=== PATIENT | female | born 1995 | race Caucasian/White ===

== ENCOUNTER → 2017-09-10 10:06 | Outpatient (REF) | payer MEDICAID, SELFPAY ==
[2017-09-10 15:06] LABS: Amphetamine/Metha Screen,Urine Negative ng/mL (<1000); Barbiturates Screen,Urine Negative ng/mL (<200); Benzodiazepines Screen,Urine Negative ng/mL (200); Cannabinoid Screen,Urine Positive ng/mL (<50); Cocaine Screen,Urine Negative ng/g (<300); Methadone Screen,Urine Negative ng/mL (<300); Opiate Screen,Urine Negative ng/mL (<300); Phencyclidine Screen,Urine Negative ng/mL (<25)
== END ==
LOC: LAB 10:06
PROVIDERS: Visit Provider Nurse Practitioner Family
DX: Z79.899 Other long term (current) drug therapy (principal)
CPT/HCPCS: 80305

== ENCOUNTER → 2017-09-20 10:23 | Outpatient (CLI) | payer MEDICAID, SELFPAY ==
[2017-09-20 11:01] LABS: Basophils # 0.1 K/mm3 (0-0.2); Basophils % 0.6 % (0.1-2.0); Eosinophils # 0.2 K/mm3 (0.0-0.4); Eosinophils % 1.4 % (0.1-12.0); Hematocrit 46.4 % (37.0-47.0); Hemoglobin 15.9 g/dL (12.2-16.2); Lymphocytes # 4.9 K/mm3 (0.7-4.5); Lymphocytes % 41.4 K/mm3 (10-50); Mean Corpuscular HGB Conc 34.3 g/dL (31.8-35.4); Mean Corpuscular Hemoglobin 28.9 pg (27.0-31.2); Mean Corpuscular Volume 84.3 fl (81-99); Mean Platelet Volume 7.9 fl (7.4-10.4); Monocytes # 0.7 K/mm3 (0.1-1.0); Monocytes % 5.8 % (1.7-9.3); Neutrophils % 50.9 % (37.0-80.0); Platelet Count 402 K/mm3 (142-424); Red Blood Count 5.51 M/mm3 (4.20-5.40); White Blood Count 11.8 K/mm3 (4.5-13.0)
[2017-09-20 12:45] LABS: Alanine Aminotransferase 26 U/L (12-78); Albumin Level 3.8 gm/dL (3.4-5.0); Alkaline Phosphatase 91 U/L (46-116); Aspartate Amino Transferase 20 U/L (15-37); Bilirubin,Total 0.4 mg/dL (0.2-1.0); Blood Urea Nitrogen 7 mg/dL (7-18); Calcium 9.4 mg/dL (8.5-10.1); Carbon Dioxide 26 mmol/L (21.0-32.0); Chol/HDL Ratio 7.7 (1-3.5); Cholesterol 263 mg/dL (140-200); Creatinine,Serum 0.72 mg/dL (0.55-1.02); Estimated Glomerular Filt Rate 103 ml/min (>60); Free T4 (Free Thyroxine) 1.01 ng/dl (0.78-1.34); GFR (African American) 125 ML/MIN (>60); Globulin 3.9 gm/dl (1.3-3.2); Glucose 83 mg/dL (74-106); HDL Cholesterol 34 mg/dL (29-89); LDL Cholesterol 185 mg/dL (0-130); Thyroid Stimulating Hormone 2.72 uIU/ml (0.516-4.13); Total Protein,Serum 7.7 gm/dL (6.4-8.2); Triglycerides 218 mg/dL (30-200); VLDL Cholesterol 44 mg/dL (0-40)
[2017-09-20 13:00] LABS: Anion Gap 16.5 mEq/L (5-15); Chloride 103 mmol/L (98-107); Potassium 4.5 mmoL/L (3.5-5.1); Sodium 141 mmol/L (136-145)
[2017-09-20 14:49] LABS: Hemoglobin A1C 4.8 % (0.0-7.0)
[2017-09-21 13:52] LABS: Vitamin D 25 Hydroxy 13.7 ng/mL (30.0-100.0)
== END ==
PROVIDERS: Visit Provider Nurse Practitioner Family
DX: R53.83 Other fatigue (principal); Z79.899 Other long term (current) drug therapy
CPT/HCPCS: 36415; 80053; 80061; 82652; 83036; 84439; 84443; 85025

== ENCOUNTER → 2018-01-29 09:32 | Outpatient (REF) | payer MEDICAID, SELFPAY ==
[2018-01-29 14:14] LABS: Amphetamine/Metha Screen,Urine Negative ng/mL (<1000); Barbiturates Screen,Urine Negative ng/mL (<200); Benzodiazepines Screen,Urine Negative ng/mL (<200); Cannabinoid Screen,Urine Positive ng/mL (<50); Cocaine Screen,Urine Negative ng/mL (<300); Methadone Screen,Urine Negative ng/mL (<300); Opiate Screen,Urine Negative ng/mL (<300); Phencyclidine Screen,Urine Negative ng/mL (<25)
== END ==
LOC: LAB 09:32
PROVIDERS: PCP Nurse Practitioner Family; Visit Provider Nurse Practitioner Family
DX: R68.89 Other general symptoms and signs (principal); Z79.899 Other long term (current) drug therapy
CPT/HCPCS: 80305

== ENCOUNTER 2024-04-06 09:31 | Emergency (ER) | payer MEDICAID, SELFPAY ==
--- NOTE | 2024-04-06 09:33 | CT_ITS ---
PROCEDURE INFORMATION: Exam: CT Head Without Contrast Exam date and time: 04/06/2024 11:13 AM Age: 28 years old Clinical indication: Other: Seizures TECHNIQUE: Imaging protocol: Computed tomography of the head without contrast. Radiation optimization: All CT scans at this facility use at least one of these dose optimization techniques: automated exposure control; mA and/or kV adjustment per patient size (includes targeted exams where dose is matched to clinical indication); or iterative reconstruction. COMPARISON: No relevant prior studies available. FINDINGS: Brain: There is no evidence of acute parenchymal hemorrhage, extra-axial collection, or acute infarction. There is no mass effect, midline shift, or downward herniation. Cerebral ventricles: No ventriculomegaly. Paranasal sinuses: Visualized sinuses are unremarkable. No fluid levels. Mastoid air cells: Visualized mastoid air cells are well aerated. Bones: Unremarkable. No acute fracture. Soft tissues: Unremarkable. IMPRESSION: No acute intracranial abnormality.
--- NOTE | 2024-04-06 09:34 | XR_ITS ---
PROCEDURE INFORMATION: Exam: XR Chest Exam date and time: 04/06/2024 11:10 AM Age: 28 years old Clinical indication: Dyspnea TECHNIQUE: Imaging protocol: Radiologic exam of the chest. Views: 1 view. COMPARISON: No relevant prior studies available. FINDINGS: Lungs: Unremarkable. No consolidation. Pleural spaces: Unremarkable. No pleural effusion. No pneumothorax. Heart/Mediastinum: Unremarkable. No cardiomegaly. Bones/joints: Unremarkable. IMPRESSION: No acute findings.
--- NOTE | 2024-04-06 09:37 | HMH.EDGENADL ---
Discharge Plan Disposition Patient Disposition: Home, Self-Care Prescriptions Prescriptions: New levetiracetam [Keppra] 750 mg tablet 750 mg PO BID 30 Days Qty: 60 5RF No Action sertraline 50 mg tablet 25 mg PO DAILY omeprazole 40 mg capsule,delayed release(DR/EC) 40 mg PO DAILY triamcinolone acetonide 0.1 % cream 1 applic topical BID Referrals Follow up/Referrals: Neetu Templeton APRN [Primary Care Provider] - See instructions Activity Restrictions/Add. Instructions Additional Instructions/Restrictions: Given the fact that you have been diagnosed with seizure in the past and were historically on Keppra we have reinitiated your Keppra with your breakthrough seizures today. As discussed transfer to be seen by an inpatient neurologist was offered and you preferred outpatient management. Please call your preferred neurologist to make next available appointment. Please maintain seizure precautions as discussed. Return with any breakthrough or worsening seizures or other conditions or concerns. And stated her antiepileptic medications until further guidance from the neurologist. Clinical Impressions Clinical Impression: Breakthrough seizure Instructions Patient Instructions: DI for Seizure Disorder -- Adult, DI for Seizure (Not Epilepsy/Seizure Disorder), DI for Seizure Disorder -- Child Print Language Print Language: Vietnamese Discharge ED Provider: Duke Hernández General Adult HPI General Chief complaint: Seizure Stated complaint: seizures Time Seen by Provider: 04/06/24 09:33 History of Present Illness HPI narrative: Patient is a 28-year-old female brought in by EMS after multiple seizures. She is postictal and history is limited from her perspective and history is obtained by EMS. Apparently she had a seizure back in 2018 and has not had any seizures since that time is not currently on any antiepileptic medications. Her states that she woke up and was having seizures they called 911. When EMS got to her she was postictal but subsequently had several more seizures generalized tonic-clonic that lasted less than 5 minutes. They gave her 5 mg of IV Versed which aborted the seizure. She remained postictal. She had a nasal trumpet in place prior to arrival however she began to wake up and pulled her nasal trumpet out prior to being seen in the emergency department. No definitive drug alcohol use fevers etc. but history is significantly limited. Related Data Home Medications ?Medication ?Instructions ?Recorded ?Confirmed omeprazole 40 mg capsule,delayed 40 mg PO DAILY 12/03/23 12/03/23 release sertraline 50 mg tablet 25 mg PO DAILY 12/03/23 12/03/23 triamcinolone acetonide 0.1 % 1 applic topical BID 12/03/23 12/03/23 topical cream Previous Rx's ?Medication ?Instructions ?Recorded levetiracetam 750 mg tablet 750 mg PO BID 30 days #60 tabs 04/06/24 (Keppra) Allergies Allergy/AdvReac Type Severity Reaction Status Date / Time No Known Allergies Allergy Verified 04/06/24 10:22 [facility] Disclaimer: The information contained in this section may have been updated after the patient was seen, as this information can be updated by other users. 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 caffeine: Yes Other Medical History Have you received the Flu Vaccine for this season: No Have you received the Pneumonia Vaccine: No ROS Obtained: Yes All systems reviewed & no additional complaints except as documented Physical Exam General General appearance: alert and in no apparent distress Neck Neck exam: Present other (Petechial rash on the face chin and upper chest area but no petechial rash elsewhere) Respiratory Respiratory exam: Present normal lung sounds bilaterally and respiratory distress Cardiovascular Cardiovascular exam: Present tachycardia Neurological Exam Neurological exam: Present other (Patient is sitting up moving all extremities but has a GCS of 14 she is confused but is nonfocal) Medical Decision Making Medical Records Screening: Per USPSTF and CDC recommendations, given the prevalence of disease in our region, it is our hospital?s policy to screen for HIV and viral Hepatitis for all patients aged 18 and over and those with ongoing risk factors. Lucas Inquiry Pt receiving controlled substance: No Vital Signs: 04/06/24 09:38 04/06/24 09:55 04/06/24 10:22 Temperature 98.4 F Temperature Source Oral Pulse Rate 141 H Pulse Rate [Left] 73 Respiratory Rate 20 16 Blood Pressure 166/109 H 134/74 Blood Pressure [Right Arm] 166/109 H Blood Pressure Mean [Right Arm] 128 Blood Pressure Source [Right Arm] Automatic Cuff Blood Pressure Position [Right Arm] Sitting 02 Sat by Pulse Oximetry 97 96 Oxygen Delivery Method Room Air Room Air 04/06/24 11:05 Temperature Temperature Source Pulse Rate 82 Pulse Rate [Left] Respiratory Rate 12 Blood Pressure 124/73 Blood Pressure [Right Arm] Blood Pressure Mean [Right Arm] Blood Pressure Source [Right Arm] Blood Pressure Position [Right Arm] 02 Sat by Pulse Oximetry 99 Oxygen Delivery Method Room Air Lab Data Lab results reviewed: Yes I reviewed the patient's lab results. Lab Results 04/06/24 09:35: WBC 21.9 H*, RBC 5.61 H, Hgb 16.8 H, Hct 50.3 H, MCV 89.7, MCH 29.9, MCHC 33.3, RDW 13.5, Plt Count 436 H, MPV 8.1, Neut % (Auto) 59.4, Lymph % (Auto) 33.6, [place] % (Auto) 5.3, Eos % (Auto) 0.5, Baso % (Auto) 1.3, Neut # (Auto) 13.0 H, Lymph # (Auto) 7.4 H, Fallon # (Auto) 1.2 H, Eos # (Auto) 0.1, Baso # (Auto) 0.3 H, Total Counted 100, Neutrophils % (Manual) 59, Lymphocytes % (Manual) 30, Atypical Lymphs % 2.0, Monocytes % (Manual) 9, Platelet Estimate Normal, RBC Morphology Normal, VBG pH 7.17 L, VBG pCO2 38.1, VBG pO2 32.6, VBG HCO3 13.7 L, VBG Total CO2 14.8 L, VBG O2 Saturation 56.7, VBG Base Excess -14.8 L, VBG Lactic Acid 12.8 H, Sodium 141, Potassium 4.2, Chloride 107, Carbon Dioxide 11 L, Anion Gap 27.2 H, BUN 8, Creatinine 0.90, Estimated GFR 76, Est GFR ( Amer) 92, Glucose 196 H, Calcium 9.3, Total Bilirubin 0.6, AST 63 H, ALT 64, Alkaline Phosphatase 101, Total Protein 8.3 H, Albumin 4.9, Globulin 3.4 H, Albumin/Globulin Ratio 1.4, Serum HCG, Qual Negative, Plasma/Serum Alcohol < 10 04/06/24 09:35 04/06/24 09:35 Orders (Tests/Meds): ED MEDICATIONS Discontinued Medications Generic Name Dose Route Start Last Admin Trade Name Chela PRN Reason Stop Dose Admin Levetiracetam 2,000 mg/ Sodium 120 mls @ 240 mls/hr 04/06/24 09:33 04/06/24 09:48 Chloride IV 04/06/24 09:34 240 mls/hr ONCE ONE Administration Lactated Ringer's 1,000 mls @ 999 mls/hr 04/06/24 09:45 04/06/24 09:48 Lactated Ringer's 1000 Ml Bag IV 04/06/24 10:45 999 mls/hr .Q1H1M BLAKE Administration ORDERS Category Date Time Status CT head/brain wo con Stat Cat Scan 04/06/24 09:33 Completed CXR --portable [XR chest portable] Stat Exams 04/06/24 09:34 Completed CBC w/Auto Diff [Complete Blood Count Auto Diff] Stat Lab 04/06/24 09:35 Completed CMP [Comprehensive Metabolic Panel] Stat Lab 04/06/24 09:35 Completed Ethanol [Ethyl Alcohol] Stat Lab 04/06/24 09:35 Completed HCG Qualitative, Serum Stat Lab 04/06/24 09:35 Completed HIV (1&2) Antibody Rapid Stat Lab 04/06/24 09:34 Received Hep C Ab with Reflex to RNA Stat Lab 04/06/24 09:34 Received UA [Urinalysis and Microscopic] Stat Lab 04/06/24 09:34 Ordered UDS [Drug Screen,Urine] Stat Lab 04/06/24 09:34 Ordered Venous Blood Gas Stat RT 04/06/24 09:35 Completed Medical Decision Narrative: 28-year-old presenting today with multiple seizures after having a seizure 6 years ago. Differential includes epilepsy, drug intoxication or withdrawal, association, trauma, etc. Will get a noncontrasted CT scan, laboratory workup administer loading dose of Keppra and IV fluids and reassess. Also will discuss further with her and family once they arrive. Reassessment 958 patient now is awake alert oriented answering questions GCS of 15 nonfocal neurologic exam. Her boyfriend (she does not have ) and her parents are at the bedside. I was able to speak to her and her boyfriend in private and also spoke to her parents. She and her boyfriend had been smoking marijuana but did not get this from a different distributor and this is not out of the ordinary for her. She has not been drinking alcohol heavily or withdrawing from any medications. She denies any association from a pleasure or traumatic standpoint . I asked her parents further about the seizure she had in 2018 and she was transferred to at that time had no definitive cause identified however she was initiated on antiepileptic medications at that time unclear as to why she stopped. I was able to review her records from [facility] from 2018 where she was seen in the emergency department had a neurology consult ultimately they discharged her with outpatient follow-up and she was initiated on Keppra 750 mg twice daily. I do not see subsequent notes they also recommend an MRI with and without contrast which was not resulted in the system. Reassessment 1154 patient still awake alert oriented GCS of 15 looks very well. Patient's metabolic acidosis on labs with evidence of having had a seizure. No indication for repeating those labs as those have a clinical explanation. She looks very well no evidence of infection or other concerns at this point. She was diagnosed with seizure in the past and was on antiepileptic medication and did very well for a long period of time. I did offer her transfer to be seen by an inpatient neurologist but she and her family and boyfriend all preferred an outpatient management. Therefore I sent descriptive and of her Keppra 750 mg twice daily with multiple refills and they feel comfortable getting outpatient follow-up with her neurologist. They understand that she is at risk of having more seizures they will keep her on seizure precautions and will be close to her until she is further managed by neurologist. Return precautions emphasized she was discharged in stable and improved condition. Additionally labs were reviewed and CT imaging and x-rays were performed which I personally interpreted which shows no acute abnormalities. Critical Care Critical Care Time Critical Care Time: Yes Attestation: On , the high probability of a clinically significant, sudden or life threatening deterioration of the following system(s) required my full and direct attention, intervention and personal management. The time I documented below is in addition to time spent performing reported procedures but includes the following listed in this critical care notation. Total Time Total Critical Care Time: 65
[2024-04-06 09:38] VITALS: BP 166/109; PULSE 141; O2SAT 97
[2024-04-06 09:40] LABS: VBG Base Excess -14.8 mmol/L (-2.4-2.3); VBG HCO3 13.7 mmol/L (23-30); VBG Oxygen Saturation 56.7 % (50-70); VBG PCO2 38.1 mmol/L (35-51); VBG PO2 32.6 mmol/L (28-40); VBG Total CO2 14.8 mmol/L (23-27)
[2024-04-06 09:42] LABS: VBG PH 7.17 mmol/L (7.31-7.41)
[2024-04-06 09:43] LABS: Lactate Venous 12.8 mmol/L (0.4-2.0)
--- NOTE | 2024-04-06 09:43 | ECG_ITS ---
APPROVED REPORT Exam: Resting ECG HR:134 bpm ECG Measurements Heart Rate 134 AXES HI 145 P 59 QRSd 76 QRS 90 QT 301 T 55 QTc 380 Conclusion SINUS TACHYCARDIA WITH OCCASIONAL VENTRICULAR PREMATURE COMPLEXES ABNORMAL RHYTHM ECG UNCONFIRMED REPORT Electronically signed by : Derrek Hernández, 04/06/2024 14:58:06
--- NOTE | 2024-04-06 09:43 | PC.NURSE ---
vbg results pH 7.173 CO2 38.1 p02 32.6 bicarb 13.7 base -14.8 sO2 56.7 lactic 12.82
[2024-04-06] MEDS: LACTATED RINGERS 1000ML 1,000 ML 999 ML IV (09:48)
[2024-04-06] MEDS: levETIRAcetam 2,000 MG in 0.9 % SODIUM CHLORIDE 100 ML 240 MG IV (09:48)
[2024-04-06 09:53] LABS: Albumin Level 4.9 g/dl (3.5-5.0); Chloride 107 mmol/L (98-107); Potassium 4.2 mmoL/L (3.5-5.1); Sodium 141 mmol/L (136-145)
[2024-04-06 09:55] VITALS: BP 166/109; PULSE 73; RESP 20; TEMP 36.9; O2SAT 96; BMI 38.4
[2024-04-06 09:56] LABS: Alanine Aminotransferase 64 U/L (12-78); Albumin/Globulin Ratio 1.4 (1.1-1.8); Alkaline Phosphatase 101 U/L (38-126); Anion Gap 27.2 mEq/L (5-15); Aspartate Amino Transferase 63 U/L (14-36); Bilirubin,Total 0.6 mg/dl (0.2-1.3); Blood Urea Nitrogen 8 mg/dl (7-17); Calcium 9.3 mg/dl (8.4-10.2); Carbon Dioxide 11 mmol/L (22.0-30.0); Estimated Glomerular Filt Rate 76 ml/min (>60); GFR (African American) 92 ML/MIN (>60); Globulin 3.4 g/dL (1.3-3.2); Glucose 196 mg/dl (74-100); Total Protein,Serum 8.3 g/dl (6.3-8.2)
--- NOTE | 2024-04-06 10:05 | PC.NURSE ---
Seizure pads placed on arrival
[2024-04-06 10:10] LABS: Basophils # 0.3 K/mm3 (0-0.2); Basophils % 1.3 % (0.1-2.0); Eosinophils # 0.1 K/mm3 (0.0-0.4); Eosinophils % 0.5 % (0.1-12.0); Hematocrit 50.3 % (37.0-47.0); Hemoglobin 16.8 g/dL (12.2-16.2); Lymphocytes # 7.4 K/mm3 (0.7-4.5); Lymphocytes % 33.6 % (10-50); Mean Corpuscular HGB Conc 33.3 g/dL (31.8-35.4); Mean Corpuscular Hemoglobin 29.9 pg (27.0-31.2); Mean Corpuscular Volume 89.7 fl (81-99); Mean Platelet Volume 8.1 fl (7.4-10.4); Monocytes # 1.2 K/mm3 (0.1-1.0); Monocytes % 5.3 % (1.7-9.3); Neutrophils % 59.4 % (37.0-80.0); Platelet Count 436 K/mm3 (142-424); Red Blood Count 5.61 M/mm3 (4.20-5.40); Red Cell Distribution Width 13.5 % (11.5-17.5); White Blood Count 21.9 K/mm3 (4.8-10.8)
[2024-04-06 10:17] LABS: HCG Qualitative, Serum Negative (Negative)
[2024-04-06 10:18] LABS: MANUAL DIFFERENTIAL MANUAL DIFFERENTIAL (MANUAL DIFF)
[2024-04-06 10:22] VITALS: BP 134/74; RESP 16
[2024-04-06 10:57] LABS: Ethyl Alcohol < 10 mg/dl (0-10); Lymphocytes % 30 % (10-50); Monocytes % 9 % (2-9); Neutrophils % 59 % (42-76); Platelet Estimate Normal; RBC Morphology Normal; Total Cells Counted 100
[2024-04-06 11:05] VITALS: BP 124/73; PULSE 82; RESP 12; O2SAT 99
[2024-04-06 12:00] VITALS: BP 123/82; PULSE 89; RESP 16; TEMP 36.6
[2024-04-06 12:17] LABS: HIV (1&2) Antibody Rapid NONREACTIVE (NONREACTIVE)
[2024-04-06 13:42] LABS: Reflex Lactic Add Lactic Reflex
[2024-04-08 06:52] LABS: HCV Ab Non Reactive (Non Reactive)
== END 2024-04-06 12:01 | disposition home or self-care (01) ==
PROVIDERS: Emergency Provider Student in an Organized Health Care Education/Training Program; PCP Nurse Practitioner
DX: G40.919 Epilepsy, unspecified, intractable, without status epilepticus (principal)
CPT/HCPCS: 70450; 71045; 80053; 80320; 82803; 84703; 85007; 85025; 85027; 86803; 87389; 93005; 96361; 96374; 99291; G0480; J1953; J7120

== ENCOUNTER 2024-04-14 05:46 | Emergency (ER) | payer MEDICAID, SELFPAY ==
[2024-04-14 05:47] VITALS: BP 140/84; PULSE 80; RESP 18; TEMP 36.4; O2SAT 96; BMI 37.2
[2024-04-14 06:30] VITALS: BP 121/97; PULSE 88; O2SAT 96
--- NOTE | 2024-04-14 07:06 | XR_ITS ---
FINAL REPORT CLINICAL HISTORY: Shortness of breath and chest pain COMPARISON: 04/06/2024 FINDINGS: A single portable view of the chest was obtained. The heart size and pulmonary vascularity are within normal limits. The mediastinum is within normal limits. Bronchial wall thickening is consistent with bronchitis. The bony thorax is intact. IMPRESSION: Bronchitis. Reviewed, Interpreted and Dictated by Nicholas Flowers III, MD Transcribed by Terrie Caicedo Authenticated and [facility]
--- NOTE | 2024-04-14 07:08 | HMH.EDGENADL ---
Discharge Plan Disposition Patient Disposition: Home, Self-Care Condition: Good Prescriptions Prescriptions: New prednisone 20 mg tablet 20 mg PO BID 5 Days Qty: 10 0RF azithromycin [Zithromax Z-Adolfo] 250 mg tablet See Rx Instructions .ROUTE .COMPLEX Qty: 6 0RF Rx Instructions: For 250 mg dose pack: take 500 mg today (day 1), then 250 mg for 4 days (days 2-5) No Action sertraline 50 mg tablet 25 mg PO DAILY omeprazole 40 mg capsule,delayed release(DR/EC) 40 mg PO DAILY triamcinolone acetonide 0.1 % cream 1 applic topical BID levetiracetam [Keppra] 750 mg tablet 750 mg PO BID 30 Days Qty: 60 5RF Referrals Follow up/Referrals: Neetu Templeton APRN [Primary Care Provider] - See instructions Activity Restrictions/Add. Instructions Additional Instructions/Restrictions: You were evaluated for shortness of breath. Your evaluation was most likely related to an atypical pneumonia. Please take the steroids and antibiotics as prescribed and until completed. Follow-up with your primary in the next 3 days for re-evaluation. Treat any pain and discomfort with alternation of Tylenol and ibuprofen every 3 hours or you can take both medications together every 6 hours. Ensure you stay adequately hydrated by drinking at least 80 ounces of water daily in addition to other drinks to like to consume. It is advised that you stop smoking as this can worsen lung diseases. Please return to ED if your symptoms worsen, change in location, change in severity, new symptoms develop or if you become concerned for your health. Clinical Impressions Clinical Impression: Atypical pneumonia Instructions Patient Instructions: Pneumonia--Adult Print Language Print Language: [place]ican Discharge ED Provider: Ela Kirby Adult HPI General Chief complaint: PAIN Stated complaint: SOA, abd pain Time Seen by Provider: 04/14/24 07:00 Mode of Arrival: Ambulatory Source of Information: Patient Limitations: No Limitations Description of Symptoms (Recalled from ER Triage Doc. by RN): Patient presents to ED with pain in bilateral ribs that started around 0400. Patient denies any injury. Patient reports it hurts when she takes a deep breath. patient reports a cough for 2-3 days. Patient denies fever or LI. History of Present Illness HPI narrative: Patient is a 28-year-old female presenting with bilateral rib pain and shortness of breath. Patient states that it started acutely at 4 AM today after her fianc?'s alarm went off and she was woken up. She states she was unable to go back to sleep and decided to come to the ER for evaluation due to not being able to take deep breaths. Patient states she smokes marijuana frequently and daily. Patient states she has had a cough for the last 2 to 3 days. She denies fevers, chills, headache, blurred vision, vomiting, bowel or bladder dysfunction. Patient states she was here a week ago for seizures. Family at bedside states the seizures were considered nonepileptic. Patient takes Keppra twice a day. Patient took no medication prior to arrival. Related Data Home Medications ?Medication ?Instructions ?Recorded ?Confirmed omeprazole 40 mg capsule,delayed 40 mg PO DAILY 12/03/23 12/03/23 release sertraline 50 mg tablet 25 mg PO DAILY 12/03/23 12/03/23 triamcinolone acetonide 0.1 % 1 applic topical BID 12/03/23 12/03/23 topical cream Previous Rx's ?Medication ?Instructions ?Recorded levetiracetam 750 mg tablet 750 mg PO BID 30 days #60 tabs 04/06/24 (Keppra) azithromycin 250 mg tablet See Rx Instructions PO .COMPLEX #6 04/14/24 (Zithromax Z-Adolfo) tabs prednisone 20 mg tablet 20 mg PO BID 5 days #10 tabs 04/14/24 Allergies Allergy/AdvReac Type Severity Reaction Status Date / Time No Known Allergies Allergy Verified 04/06/24 10:22 [facility] Disclaimer: The information contained in this section may have been updated after the patient was seen, as this information can be updated by other users. 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 caffeine: Yes Other Medical History Have you received the Flu Vaccine for this season: No Have you received the Pneumonia Vaccine: No ROS Obtained: Yes All systems reviewed & no additional complaints except as documented Physical Exam General General appearance: alert Head Head exam: atraumatic, normocephalic and normal inspection Eye Eye exam: Present normal appearance, PERRL and EOMI ENT ENT exam: Present normal exam, normal oropharynx, mucous membranes moist and normal external ear exam Neck Neck exam: Present full ROM Chest Chest inspection: Present normal inspection and symmetric chest wall rise; Absent tenderness Respiratory Respiratory exam: Present normal lung sounds bilaterally; Absent respiratory distress or wheezes Cardiovascular Cardiovascular exam: Present regular rate and normal rhythm; Absent JVD Abdominal Exam Abdominal exam: Present soft and normal bowel sounds; Absent distention, tenderness or guarding Neurological Exam Neurological exam: Present alert and oriented X3 Medical Decision Making Medical Records Screening: Per USPSTF and CDC recommendations, given the prevalence of disease in our region, it is our hospital?s policy to screen for HIV and viral Hepatitis for all patients aged 18 and over and those with ongoing risk factors. Lucas Inquiry Pt receiving controlled substance: No Vital Signs: 04/14/24 05:47 04/14/24 06:30 04/14/24 07:30 Temperature 97.5 F L Temperature Source Oral Pulse Rate 88 91 H Pulse Rate [Right Brachial] 80 Respiratory Rate 18 12 Blood Pressure 121/97 H 135/100 H Blood Pressure [Right Arm] 140/84 Blood Pressure Mean [Right Arm] 102 Blood Pressure Source [Right Arm] Automatic Cuff Blood Pressure Position [Right Arm] Supine 02 Sat by Pulse Oximetry 96 96 100 Oxygen Delivery Method Room Air 04/14/24 07:49 Temperature Temperature Source Pulse Rate 88 Pulse Rate [Right Brachial] Respiratory Rate 19 Blood Pressure 147/77 H Blood Pressure [Right Arm] Blood Pressure Mean [Right Arm] Blood Pressure Source [Right Arm] Blood Pressure Position [Right Arm] 02 Sat by Pulse Oximetry 96 Oxygen Delivery Method Room Air Lab Data Lab Results 04/14/24 06:04: SARS-CoV-2 (PCR) Not detected, Influenza A Untype (PCR) Not detected, Influenza Type B (PCR) Not detected 04/14/24 07:40: D-Dimer 0.88 H Orders (Tests/Meds): ED MEDICATIONS Discontinued Medications Generic Name Dose Route Start Last Admin Trade Name Freq PRN Reason Stop Dose Admin Acetaminophen 1,000 mg 04/14/24 07:07 04/14/24 07:18 Acetaminophen 500mg Tab PO 04/14/24 07:08 1,000 mg ONCE ONE Administration Ibuprofen 800 mg 04/14/24 07:08 04/14/24 07:18 Ibuprofen 800 Mg Tablet PO 04/14/24 07:09 800 mg ONCE ONE Administration ORDERS Category Date Time Status CXR --portable [XR chest portable] Stat Exams 04/14/24 07:06 Taken D-Dimer Stat Lab 04/14/24 07:40 Completed Rapid PCR Covid and Flu A/B Stat Lab 04/14/24 06:04 Completed Medical Decision Narrative: In summary, patient is a 28-year-old female presenting with difficulty breathing. Based on patient's presentation and history of onset approximately 3 hours prior, 2 to 3 days of cough, differential diagnosis includes but is not limited to, URI (viral versus bacterial), pneumonia, costochondritis, pleurisy, RAD, PE, among others. Based on these differentials, patient will be evaluated with a chest x-ray, EKG, viral swab and D-dimer. Patient will be treated with Tylenol and ibuprofen while in the emergency department. Patient's COVID/influenza swab negative. Patient's D-dimer 0.88. Per the YEARS criteria, PE can be excluded. Patient will not receive a CT PE at this visit. Patient's CXR personally reviewed by me and significant for increased congestion in the right perihilar region. No acute consolidation, pleural effusion, pneumothorax or mediastinal widening noted. Upon reevaluation, patient's symptoms improved. Patient given the findings of her workup and as patient is overall hemodynamically stable and in no distress, patient will be managed as an atypical pneumonia. Patient is tolerated p.o. intake. Patient advised to follow-up with her primary care provider in the next 3 days for reevaluation. Patient stated she has an appointment with her primary on . Patient given strict return precautions. Patient discharged stable condition. Ela Kirby MD PGY-3, Emergency Medicine Critical Care Critical Care Time Critical Care Time: No
[2024-04-14 07:13] LABS: Coronavirus 19, PCR Not Detected (NotDetected); Influenza A, PCR Not Detected (NotDetected); Influenza B, PCR Not Detected (NotDetected)
--- NOTE | 2024-04-14 07:16 | ECG_ITS ---
APPROVED REPORT Exam: Resting ECG HR:84 bpm ECG Measurements Heart Rate 84 AXES ME 147 P 32 QRSd 83 QRS 71 QT 347 T 23 QTc 389 Conclusion SINUS RHYTHM NORMAL ECG Electronically signed by : BRENNAN PONCE, 04/15/2024 06:30:32
[2024-04-14] MEDS: ACETAMINOPHEN 500MG TAB 1000 MG PO (07:18)
[2024-04-14] MEDS: IBUPROFEN 800 MG TABLET PO (07:18)
[2024-04-14 07:30] VITALS: BP 135/100; PULSE 91; RESP 12; O2SAT 100
[2024-04-14 07:49] VITALS: BP 147/77; PULSE 88; RESP 19; O2SAT 96
[2024-04-14 08:03] LABS: D-Dimer 0.88 ug/mL (0.0-0.5)
[2024-04-14 08:28] VITALS: BP 130/88; PULSE 89; RESP 16; TEMP 36.4; O2SAT 98
--- NOTE | 2024-04-14 13:28 | PC.NURSE ---
pt called about medications. I retransmitted them to Josue campos.
== END 2024-04-14 08:39 | disposition home or self-care (01) ==
PROVIDERS: Emergency Provider Student in an Organized Health Care Education/Training Program; PCP Nurse Practitioner
DX: J18.9 Pneumonia, unspecified organism (principal); R06.02 Shortness of breath; R05.9 Cough, unspecified; R07.82 Intercostal pain
CPT/HCPCS: 71045; 85378; 87636; 93005; 99284

== ENCOUNTER 2024-06-05 10:58 | Emergency (ER) | payer MEDICAID, SELFPAY ==
--- NOTE | 2024-06-05 10:37 | ECG_ITS ---
APPROVED REPORT Exam: Resting ECG HR:100 bpm ECG Measurements Heart Rate 100 AXES WI 146 P 37 QRSd 87 QRS 64 QT 330 T 30 QTc 387 Conclusion SINUS TACHYCARDIA ABNORMAL RHYTHM ECG No STEMI Electronically signed by : BRENNAN PONCE, 06/08/2024 06:46:19
[2024-06-05 10:39] VITALS: BP 116/76; PULSE 105; RESP 21; O2SAT 96
--- NOTE | 2024-06-05 10:45 | PC.NURSE ---
BL seizure pads placed on BL bed rails
[2024-06-05 10:48] VITALS: BP 132/89; PULSE 94; RESP 23; O2SAT 97
[2024-06-05 10:52] VITALS: BP 111/66; PULSE 107; RESP 23; TEMP 37; O2SAT 97; BMI 38.4
--- NOTE | 2024-06-05 10:59 | HMH.EDGENADL ---
Discharge Plan Disposition Patient Disposition: Home, Self-Care Condition: Good Prescriptions Prescriptions: No Action sertraline 50 mg tablet 25 mg PO DAILY omeprazole 40 mg capsule,delayed release(DR/EC) 40 mg PO DAILY triamcinolone acetonide 0.1 % cream 1 applic topical BID levetiracetam [Keppra] 750 mg tablet 750 mg PO BID 30 Days Qty: 60 5RF prednisone 20 mg tablet 20 mg PO BID 5 Days Qty: 10 0RF azithromycin [Zithromax Z-Adolfo] 250 mg tablet See Rx Instructions .ROUTE .COMPLEX Qty: 6 0RF Rx Instructions: For 250 mg dose pack: take 500 mg today (day 1), then 250 mg for 4 days (days 2-5) Activity Restrictions/Add. Instructions Additional Instructions/Restrictions: Please follow-up with your neurologist. Please return with any new or worsening symptoms Clinical Impressions Clinical Impression: Breakthrough seizure Stand Alone Forms Stand Alone Forms: Work/School Release Instructions Patient Instructions: DI for Seizure Disorder -- Adult, DI for Seizure (Not Epilepsy/Seizure Disorder), DI for Seizure Disorder -- Child Print Language Print Language: Polish Discharge ED Provider: Sameer Pelayo Adult HPI General Chief complaint: Seizure Stated complaint: seizure Time Seen by Provider: 06/05/24 10:59 Mode of Arrival: EMS Source of Information: Patient, Spouse, Parent(s) and EMS Limitations: No Limitations Description of Symptoms (Recalled from ER Triage Doc. by RN): Pt. presents to the ED via EMS after having a seizure around 940 am at home. She was asleep and began convulsions per her she seized for about 1 minute. She presents to the ED alert and oreinted x4. She has a history of seizures and her medication was changed about 3 weeks ago. History of Present Illness HPI narrative: Patient presents for evaluation of seizure-like activity which occurred earlier this morning, lasted for approximately 1 minute, resolved spontaneously, no associated head injury, patient was in her normal state of health prior to onset of symptoms, no missed doses of antiepileptic. Patient states she has had workup for seizure disorder in the past that has been unrevealing. No identifiable exacerbating or alleviating factors. No associated fevers. No headache or pain at this time. Nor was there preceding pain. Please note that above description of symptoms, in this electronic medical record under categorization of recalled from ER triage doctor by RN are reflective of an initial nursing assessment, however, is not reflective of my full history and physical exam that was personally taken and clarified. Consequentially, this preceding description of symptoms, which may include the patient's categorized chief complaint in the EMR, do not reflect my personal clinical impression, and the ultimate description of history of present illness and patient stated complaints should be deferred to this section of the note. Unless stated otherwise or congruent with this section of the note, additional signs, symptoms, or incongruence should be interpreted as inaccurate with my clinical impression. Related Data Home Medications ?Medication ?Instructions ?Recorded ?Confirmed omeprazole 40 mg capsule,delayed 40 mg PO DAILY 12/03/23 12/03/23 release sertraline 50 mg tablet 25 mg PO DAILY 12/03/23 12/03/23 triamcinolone acetonide 0.1 % 1 applic topical BID 12/03/23 12/03/23 topical cream Previous Rx's ?Medication ?Instructions ?Recorded levetiracetam 750 mg tablet 750 mg PO BID 30 days #60 tabs 04/06/24 (Keppra) azithromycin 250 mg tablet See Rx Instructions PO .COMPLEX #6 04/14/24 (Zithromax Z-Adolfo) tabs prednisone 20 mg tablet 20 mg PO BID 5 days #10 tabs 04/14/24 Allergies Allergy/AdvReac Type Severity Reaction Status Date / Time No Known Allergies Allergy Verified 04/06/24 10:22 [facility] Disclaimer: The information contained in this section may have been updated after the patient was seen, as this information can be updated by other users. Medical History (Updated 06/05/24 @ 12:27 by Sameer Pelayo MD) History of bladder problems History of gastroesophageal reflux (GERD) History of seizure History of anxiety disorder History of depression Family History (Updated 12/03/23 @ 09:33 by Therese Solano) Other Alcoholism Anxiety Depression Diabetes Hyperlipidemia Hypertension Substance abuse Social History (Updated 04/06/24 @ 11:55 by Duke Hernández MD) Smoking Status: Never smoker alcohol intake: never substance use type: marijuana current occupational status: employed Travel in the last 8 weeks: None household members: family housing: house 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 caffeine: Yes Have you lived/traveled outside US in past 30 days?: No Contact w/someone who lives/traveled outside US past 30 days?: No Exposure to someone with infectious disease in past 14 days?: No Do you have a fever (greater than 100.4 F or 38 C)?: No Have you tested positive for COVID-19: No Exposed to someone with COVID-19 in past 14 days?: No Do you have a sore throat?: No Do you have a cough?: No Do you have any weakness?: No Do you have any diarrhea?: No Are you experiencing any unusual bleeding?: No Do you have any muscle aches/pain?: No Do you have any abdominal pain?: No Are you experiencing loss of taste or smell?: No Other Medical History Have you received the Flu Vaccine for this season: No Have you received the Pneumonia Vaccine: No ROS Obtained: Yes other As per HPI Physical Exam General General appearance: alert and in no apparent distress Head Head exam: atraumatic and normocephalic Eye Eye exam: Present normal appearance Neck Neck exam: Present normal inspection Chest Chest inspection: Present normal inspection and symmetric chest wall rise Respiratory Respiratory exam: Present normal lung sounds bilaterally; Absent respiratory distress Cardiovascular Cardiovascular exam: Present regular rate and normal rhythm Abdominal Exam Abdominal exam: Present soft Neurological Exam Neurological exam: Present alert and oriented X3 Psychiatric Psychiatric exam: Present normal affect and normal mood Skin Skin exam: Present warm and dry Medical Decision Making Medical Records Medical records reviewed: Yes I reviewed the patient's medical records. Screening: Per USPSTF and CDC recommendations, given the prevalence of disease in our region, it is our hospital?s policy to screen for HIV and viral Hepatitis for all patients aged 18 and over and those with ongoing risk factors. Lucas Inquiry Pt receiving controlled substance: No Vital Signs: 06/05/24 10:39 06/05/24 10:48 06/05/24 10:52 Temperature 98.6 F Temperature Source Oral Pulse Rate 105 H 94 H Pulse Rate [Right Brachial] 107 H Respiratory Rate 23 23 Blood Pressure 116/76 132/89 Blood Pressure [Right Arm] 111/66 Blood Pressure Mean [Right Arm] 81 Blood Pressure Source [Right Arm] Automatic Cuff Blood Pressure Position [Right Arm] Sitting 02 Sat by Pulse Oximetry 96 97 97 Oxygen Delivery Method Room Air Room Air Room Air 06/05/24 11:00 06/05/24 12:01 06/05/24 12:34 Temperature 98.4 F Temperature Source Pulse Rate 95 H 90 81 Pulse Rate [Right Brachial] Respiratory Rate 15 20 18 Blood Pressure 148/91 H 119/77 119/77 Blood Pressure [Right Arm] Blood Pressure Mean [Right Arm] Blood Pressure Source [Right Arm] Blood Pressure Position [Right Arm] 02 Sat by Pulse Oximetry 95 98 Oxygen Delivery Method Room Air Room Air Room Air Lab Data Lab Results 06/05/24 10:35: WBC 11.5 H, RBC 5.42 H, Hgb 15.7, Hct 44.7, MCV 82.5, MCH 29.0, MCHC 35.1, RDW 12.3, Plt Count 330, MPV 9.5, Neut % (Auto) 62.8, Lymph % (Auto) 29.9, [place] % (Auto) 4.5, Eos % (Auto) 0.9, Baso % (Auto) 0.9, Neut # (Auto) 7.2, Lymph # (Auto) 3.4, [place] # (Auto) 0.5, Eos # (Auto) 0.1, Baso # (Auto) 0.1, Sodium 137, Potassium 4.1, Chloride 106, Carbon Dioxide 22, Anion Gap 13.1, BUN 11, Creatinine 0.60, Estimated Creat Clear 221, Estimated GFR 121, Est GFR ( Amer) 146, Glucose 131 H, Calcium 8.9, Total Bilirubin 0.4, AST 48 H, ALT 37, Alkaline Phosphatase 106, Total Protein 7.3, Albumin 4.4, Globulin 2.9, Albumin/Globulin Ratio 1.5, Serum HCG, Qual Negative 06/05/24 10:35 06/05/24 10:35 Orders (Tests/Meds): ORDERS Category Date Time Status CBC w/Auto Diff [Complete Blood Count Auto Diff] Stat Lab 06/05/24 10:35 Completed CMP [Comprehensive Metabolic Panel] Stat Lab 06/05/24 10:35 Completed HCG Qualitative, Serum Stat Lab 06/05/24 10:35 Completed Medical Decision Narrative: Patient with history and exam per above presenting for evaluation of seizure-like activity Diagnoses considered include breakthrough seizure, PNES, electrolyte abnormality, among others ED workup and treatment included: ORDERS Category Date Time Status CBC w/Auto Diff [Complete Blood Count Auto Diff] Stat Lab 06/05/24 10:35 Completed CMP [Comprehensive Metabolic Panel] Stat Lab 06/05/24 10:35 Completed HCG Qualitative, Serum Stat Lab 06/05/24 10:35 Completed Labs were independently interpreted by me, significant for white blood cell count 11.5 My clinical impression at this time is most consistent with breakthrough seizure, for which patient will follow-up with neurology. I discussed my clinical impression with patient and answered all questions. At this time, the evidence for any other entities in the differential is insufficient to warrant any further testing or ED observation. This was explained to the patient. The patient was advised that persistent or worsening symptoms require further evaluation. Critical Care Critical Care Time Critical Care Time: No
[2024-06-05 11:00] VITALS: BP 148/91; PULSE 95; RESP 15; O2SAT 95
[2024-06-05 11:10] LABS: Albumin Level 4.4 g/dl (3.5-5.0); Chloride 106 mmol/L (98-107); Potassium 4.1 mmoL/L (3.5-5.1); Sodium 137 mmol/L (136-145)
[2024-06-05 11:12] LABS: Blood Urea Nitrogen 11 mg/dl (7-17); Creatinine Clearance Estimated 221 mL/min (50-200); Estimated Glomerular Filt Rate 121 ml/min (>60); GFR (African American) 146 ML/MIN (>60)
[2024-06-05 11:13] LABS: Alanine Aminotransferase 37 U/L (12-78); Albumin/Globulin Ratio 1.5 (1.1-1.8); Alkaline Phosphatase 106 U/L (38-126); Anion Gap 13.1 mEq/L (5-15); Aspartate Amino Transferase 48 U/L (14-36); Bilirubin,Total 0.4 mg/dl (0.2-1.3); Calcium 8.9 mg/dl (8.4-10.2); Carbon Dioxide 22 mmol/L (22.0-30.0); Globulin 2.9 g/dL (1.3-3.2); Glucose 131 mg/dl (74-100); Total Protein,Serum 7.3 g/dl (6.3-8.2)
[2024-06-05 11:17] LABS: Basophils # 0.1 K/mm3 (0-0.2); Basophils % 0.9 % (0.1-2.0); Eosinophils # 0.1 K/mm3 (0.0-0.4); Eosinophils % 0.9 % (0.1-12.0); Hematocrit 44.7 % (37.0-47.0); Hemoglobin 15.7 g/dL (12.2-16.2); Lymphocytes # 3.4 K/mm3 (0.7-4.5); Lymphocytes % 29.9 % (10-50); Mean Corpuscular HGB Conc 35.1 g/dL (31.8-35.4); Mean Corpuscular Volume 82.5 fl (81-99); Mean Platelet Volume 9.5 fl (7.4-10.4); Monocytes # 0.5 K/mm3 (0.1-1.0); Monocytes % 4.5 % (1.7-9.3); Neutrophils # 7.2 K/mm3 (1.8-7.8); Neutrophils % 62.8 % (37.0-80.0); Platelet Count 330 K/mm3 (142-424); Red Blood Count 5.42 M/mm3 (4.20-5.40); Red Cell Distribution Width 12.3 % (11.5-17.5); White Blood Count 11.5 K/mm3 (4.8-10.8)
[2024-06-05 11:42] LABS: HCG Qualitative, Serum Negative (Negative)
[2024-06-05 12:01] VITALS: BP 119/77; PULSE 90; RESP 20; O2SAT 98
[2024-06-05 12:34] VITALS: BP 119/77; PULSE 81; RESP 18; TEMP 36.9; O2SAT 99
== END 2024-06-05 12:35 | disposition home or self-care (01) ==
PROVIDERS: Emergency Provider Emergency Medicine; PCP Nurse Practitioner
DX: G40.919 Epilepsy, unspecified, intractable, without status epilepticus (principal)
CPT/HCPCS: 80053; 84703; 85025; 93005; 99283

== ENCOUNTER 2024-07-18 10:04 | Emergency (ER) | payer MEDICAID, SELFPAY ==
[2024-07-18] VITALS (9 sets, daily range): BP systolic 95–156; BP diastolic 34–94; PULSE 90–132; RESP 14–20; TEMP 36.8–37.2; O2SAT 93–98; BMI 37.2
--- NOTE | 2024-07-18 10:20 | ECG_ITS ---
APPROVED REPORT Exam: Resting ECG HR:110 bpm ECG Measurements Heart Rate 110 AXES IA 142 P 61 QRSd 80 QRS 87 QT 325 T 43 QTc 390 Conclusion Sinus tachycardia normal axis no ST elevation ST depression or T wave inversions concerning for ischemia Electronically signed by : Yessenia Lyman, 07/18/2024 16:28:03
--- NOTE | 2024-07-18 10:48 | PC.NURSE ---
FSBS 147
--- NOTE | 2024-07-18 11:00 | PC.NURSE ---
lab at bedside for lab draw
[2024-07-18 11:10] LABS: Basophils # 0.1 K/mm3 (0-0.2); Basophils % 0.5 % (0.1-2.0); Eosinophils % 0.3 % (0.1-12.0); Hematocrit 41.9 % (37.0-47.0); Hemoglobin 14.7 g/dL (12.2-16.2); Lymphocytes # 0.5 K/mm3 (0.7-4.5); Mean Corpuscular HGB Conc 35.1 g/dL (31.8-35.4); Mean Corpuscular Hemoglobin 28.9 pg (27.0-31.2); Mean Corpuscular Volume 82.5 fl (81-99); Mean Platelet Volume 8.9 fl (7.4-10.4); Monocytes # 0.8 K/mm3 (0.1-1.0); Monocytes % 8.2 % (1.7-9.3); Neutrophils # 8.3 K/mm3 (1.8-7.8); Neutrophils % 85.3 % (37.0-80.0); Platelet Count 265 K/mm3 (142-424); Red Blood Count 5.08 M/mm3 (4.20-5.40); Red Cell Distribution Width 12.1 % (11.5-17.5); White Blood Count 9.7 K/mm3 (4.8-10.8)
[2024-07-18 11:11] LABS: Lactate Venous 1.6 mmol/L (0.4-2.0); VBG Base Excess -4.1 mmol/L (-2.4-2.3); VBG Oxygen Saturation 64.6 % (50-70); VBG PCO2 36.5 mmol/L (35-51); VBG PH 7.38 mmol/L (7.31-7.41); VBG PO2 32.1 mmol/L (28-40); VBG Total CO2 22.1 mmol/L (23-27)
--- NOTE | 2024-07-18 11:34 | ED_ITS ---
Discharge Plan Disposition Patient Disposition: Xfer Other Prescriptions Prescriptions: No Action sertraline 50 mg tablet 25 mg PO DAILY omeprazole 40 mg capsule,delayed release(DR/EC) 40 mg PO DAILY triamcinolone acetonide 0.1 % cream 1 applic topical BID levetiracetam [Keppra] 750 mg tablet 750 mg PO BID 30 Days Qty: 60 5RF prednisone 20 mg tablet 20 mg PO BID 5 Days Qty: 10 0RF azithromycin [Zithromax Z-Adolfo] 250 mg tablet See Rx Instructions .ROUTE .COMPLEX Qty: 6 0RF Rx Instructions: For 250 mg dose pack: take 500 mg today (day 1), then 250 mg for 4 days (days 2-5) Referrals Follow up/Referrals: Neetu Templeton APRN [Primary Care Provider] - See instructions Clinical Impressions Clinical Impression: Epileptic seizure Instructions Patient Instructions: DI for Seizure Disorder -- Adult, DI for Seizure (Not Epilepsy/Seizure Disorder), DI for Seizure Disorder -- Child Print Language Print Language: Senegalese Discharge ED Provider: Yessenia Lyman General Adult HPI General Chief complaint: Seizure Stated complaint: seizure Time Seen by Provider: 07/18/24 11:33 Mode of Arrival: EMS Source of Information: Patient and Spouse Description of Symptoms (Recalled from ER Triage Doc. by RN): pt to the ED after a whitnessed seizure at home. pt has a hostiry of seizures and reported she remembered waking up this morning and going back to sleep. pt fiance reported seeing having seizure like activitiy in bed. pt denies any injury or incontinence at this time. on arrival pt is alert and oriented and denies any pain. pt also reports a cough and congestion and that her family members have been positive for the flu History of Present Illness HPI narrative: Patient is a 28-year-old with past medical history significant for epilepsy on oxcarbazepine currently follows with neurology in [place] presents to the emergency department with breakthrough seizure. Patient has had cough congestion body aches for the last 2 days. Has been compliant with her 600 mg dose twice a day of oxcarbazepine. Decreased p.o. intake but no nausea no vomiting. This morning had a 32nd generalized tonic-clonic seizure stopped without any abortive medications and then quickly returned to baseline after a short period of confusion. Patient does not remember the event. Patient has no weakness or sensory deficits after the seizure. Related Data Home Medications ?Medication ?Instructions ?Recorded ?Confirmed omeprazole 40 mg capsule,delayed 40 mg PO DAILY 12/03/23 12/03/23 release sertraline 50 mg tablet 25 mg PO DAILY 12/03/23 12/03/23 triamcinolone acetonide 0.1 % 1 applic topical BID 12/03/23 12/03/23 topical cream Previous Rx's ?Medication ?Instructions ?Recorded levetiracetam 750 mg tablet 750 mg PO BID 30 days #60 tabs 04/06/24 (Keppra) azithromycin 250 mg tablet See Rx Instructions PO .COMPLEX #6 04/14/24 (Zithromax Z-Adolfo) tabs prednisone 20 mg tablet 20 mg PO BID 5 days #10 tabs 04/14/24 Allergies Allergy/AdvReac Type Severity Reaction Status Date / Time No Known Allergies Allergy Verified 04/06/24 10:22 [facility] Disclaimer: The information contained in this section may have been updated after the patient was seen, as this information can be updated by other users. Medical History (Updated 07/18/24 @ 13:42 by Yessenia Lyman MD) History of bladder problems History of gastroesophageal reflux (GERD) History of seizure History of anxiety disorder History of depression Family History (Updated 12/03/23 @ 09:33 by Therese Solano) Other Alcoholism Anxiety Depression Diabetes Hyperlipidemia Hypertension Substance abuse Social History (Updated 04/06/24 @ 11:55 by Duke Hernández MD) Smoking Status: Never smoker alcohol intake: never substance use type: marijuana current occupational status: employed Travel in the last 8 weeks: None household members: family housing: house 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 caffeine: Yes Have you lived/traveled outside US in past 30 days?: No Contact w/someone who lives/traveled outside US past 30 days?: No Exposure to someone with infectious disease in past 14 days?: Yes Do you have a fever (greater than 100.4 F or 38 C)?: Yes Have you tested positive for COVID-19: No Exposed to someone with COVID-19 in past 14 days?: No Do you have a sore throat?: No Do you have a cough?: Yes Do you have any weakness?: Yes Do you have any diarrhea?: No Are you experiencing any unusual bleeding?: No Do you have any muscle aches/pain?: Yes Do you have any abdominal pain?: No Are you experiencing loss of taste or smell?: No Other Medical History Have you received the Flu Vaccine for this season: No Have you received the Pneumonia Vaccine: No ROS Obtained: Yes All systems reviewed & no additional complaints except as documented Physical Exam General General appearance: alert and in no apparent distress Comment: Ill-appearing with chills Head Head exam: atraumatic and normocephalic Eye Eye exam: Present normal appearance and PERRL ENT ENT exam: Present normal exam and normal oropharynx Respiratory Respiratory exam: Present normal lung sounds bilaterally and other (Congestion and nonproductive cough); Absent respiratory distress Cardiovascular Cardiovascular exam: Present normal rhythm and tachycardia Abdominal Exam Abdominal exam: Present soft; Absent tenderness Neurological Exam Neurological exam: Present alert, oriented X3, CN II-XII intact and normal gait; Absent motor sensory deficit Medical Decision Making Medical Records Screening: Per USPSTF and CDC recommendations, given the prevalence of disease in our region, it is our hospital?s policy to screen for HIV and viral Hepatitis for all patients aged 18 and over and those with ongoing risk factors. Lucas Inquiry Pt receiving controlled substance: No Vital Signs: 07/18/24 10:10 07/18/24 10:11 07/18/24 10:30 Temperature 98.3 F Temperature Source Oral Pulse Rate 114 H 103 H Pulse Rate [Apical] 119 H Respiratory Rate 17 14 Blood Pressure 156/93 H 129/81 Blood Pressure [Right Arm] 156/93 H Blood Pressure Mean 99 Blood Pressure Mean [Right Arm] 114 Blood Pressure Source [Right Arm] Automatic Cuff Blood Pressure Position [Right Arm] Sitting 02 Sat by Pulse Oximetry 96 95 97 Oxygen Delivery Method Room Air 07/18/24 11:00 07/18/24 11:31 07/18/24 12:01 Temperature Temperature Source Pulse Rate 99 H 102 H 105 H Pulse Rate [Apical] Respiratory Rate 20 16 14 Blood Pressure 121/76 106/77 L 43/25 L Blood Pressure [Right Arm] Blood Pressure Mean 91 87 31 Blood Pressure Mean [Right Arm] Blood Pressure Source [Right Arm] Blood Pressure Position [Right Arm] 02 Sat by Pulse Oximetry 98 97 97 Oxygen Delivery Method Lab Data Lab Results 07/18/24 10:26: SARS-CoV-2 (PCR) Not detected, Influenza A Untype (PCR) Detected A, Influenza Type B (PCR) Not detected 07/18/24 11:00: WBC 9.7, RBC 5.08, Hgb 14.7, Hct 41.9, MCV 82.5, MCH 28.9, MCHC 35.1, RDW 12.1, Plt Count 265, MPV 8.9, Neut % (Auto) 85.3 H, Lymph % (Auto) 5.0 L, [place] % (Auto) 8.2, Eos % (Auto) 0.3, Baso % (Auto) 0.5, Neut # (Auto) 8.3 H, Lymph # (Auto) 0.5 L, [place] # (Auto) 0.8, Eos # (Auto) 0.0, Baso # (Auto) 0.1, VBG pH 7.38, VBG pCO2 36.5, VBG pO2 32.1, VBG HCO3 21.0 L, VBG Total CO2 22.1 L, VBG O2 Saturation 64.6, VBG Base Excess -4.1 L, VBG Lactic Acid 1.6, Sodium 135 L, Potassium 3.8, Chloride 105, Carbon Dioxide 22, Anion Gap 11.8, BUN 7, Creatinine 0.70, Estimated Creat Clear 183, Estimated GFR 101, Est GFR ( Amer) 122, Glucose 110 H, Lactate 1.7, Calcium 8.8, Magnesium 2.1, Total Bilirubin 0.3, AST 30, ALT 26, Alkaline Phosphatase 86, Total Protein 6.8, Albumin 4.5, Globulin 2.3, Albumin/Globulin Ratio 2.0 H, Serum HCG, Qual Negative 07/18/24 11:00 07/18/24 11:00 Orders (Tests/Meds): ED MEDICATIONS Generic Name Dose Route Start Last Admin Trade Name Freq PRN Reason Stop Dose Admin Oxcarbazepine 600 mg 07/18/24 21:00 07/18/24 11:53 Oxcarbazepine 300mg Tablet PO 08/17/24 20:59 600 mg BID BLAKE Administration Discontinued Medications Generic Name Dose Route Start Last Admin Trade Name Freq PRN Reason Stop Dose Admin Acetaminophen 1,000 mg 07/18/24 11:42 07/18/24 11:46 Acetaminophen 500mg Tab PO 07/18/24 11:43 1,000 mg ONCE ONE Administration Levetiracetam 4,500 mg/ Sodium 145 mls @ 290 mls/hr 07/18/24 12:20 07/18/24 12:57 Chloride IV 07/18/24 12:21 290 mls/hr ONCE ONE Administration ORDERS Category Date Time Status Complete Blood Count Auto Diff Stat Lab 07/18/24 11:00 Completed Comprehensive Metabolic Panel Stat Lab 07/18/24 11:00 Completed HCG Qualitative, Serum Stat Lab 07/18/24 11:00 Completed Lactic Acid Stat Lab 07/18/24 11:00 Completed Magnesium Stat Lab 07/18/24 11:00 Completed Rapid PCR Covid and Flu A/B Stat Lab 07/18/24 10:26 Completed Venous Blood Gas Stat RT 07/18/24 11:00 Completed Medical Decision Narrative: In summary, this 28-year-old female presents to the emergency department today with seizure. On initial evaluation patient is tachycardic normotensive afebrile saturating appropriately on room air and baseline mental status. Differential diagnosis includes but is not limited to viral syndrome including flu COVID RSV, encephalitis, breakthrough seizure in the setting of acute illness. Based on these concerns, I ordered CBC CMP lactate COVID flu RSV swab beta-hCG. While in the emergency department patient had a 32nd generalized tonic-clonic seizure that was aborted with 2 mg of IM Versed. Patient had postictal phase and quickly returned back to baseline. Patient was then loaded with 4.5 mg of Keppra and also received her daily dose of oxcarbazepine today. Additionally patient received 1 L fluid bolus, Tylenol and Toradol for her chills and bodyaches. Labs personally reviewed demonstrate negative test, positive for flu A. I had an interactive discussion with hospital medicine with recommendations consultation with [facility] neurology. I did interactive conversation with [facility] neurology and the hospitalist who recommended transfer to their facility for inpatient observation. Transfer accepting physician [place] Critical Care Critical Care Time Critical Care Time: Yes Attestation: On 07/18/24, the high probability of a clinically significant, sudden or life threatening deterioration of the following system(s) required my full and direct attention, intervention and personal management. The time I documented below is in addition to time spent performing reported procedures but includes the following listed in this critical care notation. Total Time Total Critical Care Time: 20
--- NOTE | 2024-07-18 11:35 | PC.NURSE ---
DR PEÑA AT BEDSIDE
[2024-07-18 11:37] LABS: Coronavirus 19, PCR Not Detected (NotDetected); Influenza B, PCR Not Detected (NotDetected)
[2024-07-18] MEDS: ACETAMINOPHEN 500MG TAB 1000 MG PO (11:46)
[2024-07-18] MEDS: OXcarbazepine 300MG TABLET 600 MG PO (11:53)
[2024-07-18 11:54] LABS: Lactic Acid 1.7 mmol/L (0.7-2.1)
[2024-07-18 11:56] LABS: Alanine Aminotransferase 26 U/L (12-78); Albumin Level 4.5 g/dl (3.5-5.0); Alkaline Phosphatase 86 U/L (38-126); Anion Gap 11.8 mEq/L (5-15); Aspartate Amino Transferase 30 U/L (14-36); Bilirubin,Total 0.3 mg/dl (0.2-1.3); Blood Urea Nitrogen 7 mg/dl (7-17); Calcium 8.8 mg/dl (8.4-10.2); Carbon Dioxide 22 mmol/L (22.0-30.0); Chloride 105 mmol/L (98-107); Creatinine Clearance Estimated 183 mL/min (50-200); Estimated Glomerular Filt Rate 101 ml/min (>60); GFR (African American) 122 ML/MIN (>60); Globulin 2.3 g/dL (1.3-3.2); Glucose 110 mg/dl (74-100); Magnesium 2.1 mg/dl (1.6-2.3); Potassium 3.8 mmoL/L (3.5-5.1); Sodium 135 mmol/L (136-145); Total Protein,Serum 6.8 g/dl (6.3-8.2)
[2024-07-18] MEDS: LORazepam 2MG/ML VIAL 2 MG IM (12:08)
--- NOTE | 2024-07-18 12:24 | PC.NURSE ---
Called pharmacy to prepare Keppra loading dose.
[2024-07-18 12:30] LABS: HCG Qualitative, Serum Negative (Negative)
[2024-07-18 12:39] LABS: Influenza A, PCR Detected (NotDetected)
[2024-07-18] MEDS: levETIRAcetam 4,500 MG in 0.9 % SODIUM CHLORIDE 100 ML 290 MG IV (12:57)
--- NOTE | 2024-07-18 13:05 | PC.NURSE ---
Addendum entered by Carrington Hopper, EMT-P 07/18/24 13:06: commode Original Note: 1305hrs patient on bedside
--- NOTE | 2024-07-18 13:17 | PC.NURSE ---
Called [facility] per Dr Lyman about getting this pt transferred to there facility reason being thats where her Doctor is. Transfer Center advised that they would call us back
--- NOTE | 2024-07-18 13:29 | PC.NURSE ---
[facility] transfer called back to speak to
--- NOTE | 2024-07-18 13:38 | PC.NURSE ---
DR PEÑA AT BEDSIDE TO UPDATE PT AND FAMILY
[2024-07-18] MEDS: LACTATED RINGERS 1000ML 500 ML 999 ML IV (13:58)
[2024-07-18] MEDS: KETOROLAC 30MG/ML VIAL 15 MG IV (13:58)
--- NOTE | 2024-07-18 14:00 | PC.NURSE ---
[facility] NOTIFIED OF ADMISSION
--- NOTE | 2024-07-18 14:01 | PC.NURSE ---
[facility] NOTIFIED OF PRIOR AUTH FOR TRANSFER
--- NOTE | 2024-07-18 14:12 | PC.NURSE ---
report called to BAKARI Whelan at [facility]
== END 2024-07-18 15:00 | disposition other institution (70) ==
PROVIDERS: Emergency Provider Student in an Organized Health Care Education/Training Program; PCP Nurse Practitioner
DX: G40.009 Localization-related (focal) (partial) idiopathic epilepsy and epileptic syndromes with seizures of localized onset, not intractable, without status epilepticus (principal)
CPT/HCPCS: 36415; 80053; 82803; 83605; 83735; 84703; 85025; 87636; 93005; 96374; 99284; J1885; J1953; J2060; J7120

== ENCOUNTER → 2024-10-31 20:33 | Outpatient (CLI) | payer MEDICAID, SELFPAY ==
--- OUTSIDE RECORDS SUMMARY | 2024-10-31 20:37 | XMS_ITS | Data Portability ---
Author Organization [facility] [place] [address] [place] [address] [place] [address] Assessment Encounter Date Assessment Date Assessment LastModified by Organization Details LastModified Time 04/07/2024 04/07/2024 Annual gynecological exam performed. Patient will come back in a year unless there are new symptoms. Not available 02/21/2024 13:04:30 Plan of Treatment Reminders Order Date Submit Date Provider Last Modified By Organization Details Last Modified Time Details Appointments None recorded. Lab cytology report, thin prep, smear or scraping, cervical or vaginal 2023 024 GILMER [facility], [address] [place] [address], [place], [address], 4 15:08:16 test, urine [address], [address], 4 10:30:47 Referral neurologist referral - WHITNEY 2023 024 DARCIE Ceron MD, [address] [place] [address] [address], [place], [address], 4 11:40:31 gynecologis t referral - first avail. pt needs pap and wants to see why shes not getting 2023 024 [email or web address] Sherri Lanier DO, [address], [address], [place], [address], 11:08:24 Procedures None recorded. Surgeries None recorded. Imaging None recorded. Medication Orders valproic acid 250 mg capsule 2023 025 [employer], [address] [place] [address], [id number], 5 13:37:30 sertraline 25 mg tablet 2023 024 [employer], [address] [place] [address], [id number], 5 14:18:37 amoxicillin 875 mg-potassiu m clavulanate 125 mg tablet 2023 024 [employer], [address] [place] [address], [id number], 4 11:35:13 Patient Targets Encounter Date Encounter Id Patient Goals Patient Target Last Modified By Organization Details Last Modified Time 02/07/2024 [id number] Continue care with PCP. Apply for SNAP benefits with [employer] office. [email or web address] Not available 02/07/2024 08:38:57 Patient Instructions Encounter Date Encounter Id Patient Instructions Last Modified By Organization Details Last Modified Time 02/07/2024 [id number] Patient was referred to me by PCP staff. While talking to patient, we talked about local resources that are available in her area. We also discussed obtaining SNAP and where to go. I also let patient know that Insurance offers other extra benefits and how to obtain those so she will have extra money for other items she may need. I gave patient my contact information for follow up if needed. 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 pt needs pap and wants to see why shes not getting Referring Physician: Neetu Templeton, Family Medicine, Encounter Date: 01/25/2024 Neurologist Referral for Sei zure disorder WHITNEY Referring Physician: Neetu Templeton [facility], Encounter Date: 04/18/2024 Results Created Date Observation Date Name Description Value Unit Range Abnormal Flag Note LastModifiedBy Organization Detail LastModifiedTime 01/25/20 24 01/25/2024 pregn nasrin test, urine HCG negati ve Not Available [address], [address], 01/25/2024 10:20:21 04/08/20 24 04/10/2024 IGP,C TNGRF XCOBA SHPV1 6/18A LLPTH chlamydia, nuc. acid amp Negati ve negati ve Not Available [facility] ([facility]) [address] [facility], [place], [address], 04/16/2024 15:08:16 04/08/20 24 04/10/2024 IGP,C TNGRF XCOBA SHPV1 6/18A LLPTH gonococcus, nuc. acid amp Negati ve negati ve Not Available [facility] ([facility]) [address] [facility], [place], [address], 04/16/2024 15:08:16 04/08/20 24 04/16/2024 IGP,C TNGRF XCOBA SHPV1 6/18A LLPTH diagnosis: Commen t NEGAT PEDRO LUIS FOR INTRA EPITH ELIAL LESIO N OR DEX ARAIZA . Not Available [facility] ([facility]) [address] [facility], [place], [address], 04/16/2024 15:08:16 04/08/20 24 04/16/2024 IGP,C TNGRF XCOBA SHPV1 6/18A LLPTH specimen adequacy: Commen t Satis facto ry for evalu ation . No endoc ervic al compo nent is ident ified . Not Available [facility] ([facility]) [address] [facility], [place], [address], 04/16/2024 15:08:16 04/08/20 24 04/16/2024 IGP,C TNGRF XCOBA SHPV1 6/18A LLPTH clinician provided ICD10: Yesika morocho Z01.4 19 Not Available [facility] ([facility]) [address] [place], [address], 04/16/2024 15:08:16 04/08/20 24 04/16/2024 IGP,C TNGRF XCOBA SHPV1 6/18A LLPTH performed by: Yesika Lawson ams, Cytorashawn morocho (ASCP ) Not Available [facility] ([facility]) [address] [place], [address], 04/16/2024 15:08:16 04/08/20 24 04/16/2024 IGP,C TNGRF XCOBA SHPV1 6/18A LLPTH . . Not Available [facility] ([facility]) [address] [place], [address], 04/16/2024 15:08:16 04/08/20 24 04/16/2024 IGP,C TNGRF XCOBA SHPV1 6/18A LLPTH note: Yesika morocho The Pap smear is a scree zay test desig wilber to aid in the detec tion of олег ligna nt and malig nant condi tions of the uteri ne cervi x. It is not a diagn ostic proce dure and shoul d not be used as the sole means of detec ting cervi chika cance r. Both false -posi tive and false -nega tive repor ts do occur . Not Available [facility] ([facility]) [address] [place], [address], 04/16/2024 15:08:16 04/08/20 24 04/16/2024 IGP,C TNGRF XCOBA SHPV1 6/18A LLPTH test methodology: Yesika morocho This liqui d based ThinP rep(R ) pap test was scree wilber with the use of an image guide arlin systmauricio acuña. Not Available [facility] ([facility]) [address] [facility] [place], [address], 04/16/2024 15:08:16 04/08/20 24 04/16/2024 IGP,C TNGRF XCOBA SHPV1 6/18A LLPTH . Commen t The HPV DNA refle x crite dane were not met with this speci men resul t there fore, no HPV testi ng was perfo rmed. Not Available [facility] ([facility]) [address] [facility], [place], [address], 04/16/2024 15:08:16 04/06/20 24 04/06/2024 CT, head + brain , w/o contr ast No observ ation record ed. [address], [place], [address], 07/15/2024 15:16:56 04/06/20 24 04/06/2024 XR, chest , 1 view No observ ation record ed. [address], [place], [address], 07/15/2024 15:17:24 04/06/20 24 04/06/2024 elect rocar diogr am No observ ation record ed. [address], [place], [address], 07/15/2024 15:17:51 04/14/20 24 04/14/2024 XR, chest , 1 view No observ ation record ed. [address], [place], [address], 07/15/2024 15:18:10 04/15/20 24 04/14/2024 elect rocar diogr am No observ ation record ed. [address], [place], [address], 07/15/2024 15:18:32 05/22/19 25 05/22/2024 MRI, brain + brain stem, w/o contr ast No observ ation record ed. [address] Registration [address] [place], [address], 07/15/2024 15:20:08 06/02/19 25 05/22/2024 elect rocar diogr am No observ ation record ed. [address] Registration [address] [place], [address], 07/15/2024 15:20:40 06/07/19 25 05/22/2024 casper nuous EEG monit oring , profe ssion al compo nent; 12-26 hrs, with VEEG (PROC ) No observ ation record ed. [address] Registration [address] [place], [address], 07/15/2024 15:21:18 06/08/19 25 06/05/2024 elect rocar diogr am No observ ation record ed. [address], [place], [address], 07/15/2024 15:21:48 07/19/19 25 07/18/2024 elect rocar diogr am No observ ation record ed. [address], [address], 07/19/2024 08:58:08 07/21/19 25 07/19/2024 casper nuous EEG monit oring , profe ssion al compo nent; 12-26 hrs, with VEEG (PROC ) No observ ation record ed. [address] (Registration ) [address] [facility], [address], 07/21/2024 08:53:44 Result Notes None recorded. 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 4 14:51:12 Seizure 19792304 Active 2023 CORINNA ANGLIN [facility] [address] [place], [address] , [employer] 4 14:51:40 Moderate recurren t major depressi on 31679023 Active 2019 Problem Code: F33.1; Problem Code Type: ICD-10; Not Available [facility] 2 22:10:33 Generali zed anxiety disorder 24101033 Active 2019 Problem Code: F41.1; Problem Code Type: ICD-10; Not Available [facility] 2 22:10:33 Acute suppurat pedro luis otitis media 441026215 Active 2018 Not Available [facility] 2 22:10:33 Acute maxillar y sinusiti s 15259551 Active 2018 Problem Code: J01.00; Problem Code Type: ICD-10; Not Available [facility] 2 22:10:33 Acute maxillar y sinusiti s 26665719 Completed 201604/14/2017 Problem Code: J01.01; Problem Code Type: ICD-10; Not Available [facility] 2 22:10:33 Acute sinusiti s 10952244 Completed 201607/27/2016 Problem Code: J01.90; Problem Code Type: ICD-10; Not Available [facility] 2 22:10:33 Acute sinusiti s 13235666 Active 2018 Problem Code: J01.90; Problem Code Type: ICD-10; Not Available [facility] 2 22:10:33 Acute sinusiti s 56729423 Completed 201909/20/2021 Problem Code: J01.90; Problem Code Type: ICD-10; Not Available [facility] 2 22:10:34 Acute pharyngi tis 250732553 Completed 201607/15/2016 Problem Code: J02.8; Problem Code Type: ICD-10; Not Available [facility] 2 22:10:34 Acute laryngop haryngit is 34263442 Completed 201804/11/2019 Problem Code: J06.0; Problem Code Type: ICD-10; Not Available [facility] 2 22:10:34 Acute laryngop haryngit is 76717336 Active 2018 Problem Code: J06.0; Problem Code Type: ICD-10; Not Available [facility] 2 22:10:34 Acute laryngop haryngit is 90265675 Completed 201605/30/2016 Problem Code: J06.0; Problem Code Type: ICD-10; Not Available [facility] 2 22:10:34 Infectiv e pneumoni a 635974248 Completed 201610/15/2016 Problem Code: J16.8; Problem Code Type: ICD-10; Not Available [facility] 2 22:10:34 Allergic rhinitis caused by pollen 04341168 Completed 201610/24/2016 Problem Code: J30.1; Problem Code Type: ICD-10; Not Available [facility] 2 22:10:34 Disorder of tongue 06745218 Completed 201705/26/2018 Problem Code: K14.9; Problem Code Type: ICD-10; Not Available [facility] 2 22:10:34 Constipa tion 29739274 Completed 201612/05/2019 Not Available [facility] 2 22:10:34 Acute lymphade nitis of face, head and neck Active 2019 Problem Code: L04.0; Problem Code Type: ICD-10; Not Available [facility] 2 22:10:35 Amenorrh ea 92113152 Active 2020 Problem Code: N91.2; Problem Code Type: ICD-10; Not Available [facility] 2 22:10:35 Irregula r periods 90782804 Active 2020 Not Available [facility] 2 22:10:35 Cough 93686474 Active 2018 Problem Code: R05; Problem Code Type: ICD-10; Not Available [facility] 22:10:35 Cough 77612378 Completed 201602/27/2017 Problem Code: R05; Problem Code Type: ICD-10; Not Available [facility] 2 22:10:35 Wheezing 35016698 Completed 201610/24/2016 Problem Code: R06.2; Problem Code Type: ICD-10; Not Available [facility] 2 22:10:35 Increase d frequenc y of urinatio n 504629467 Active 2020 Problem Code: R35.0; Problem Code Type: ICD-10; Not Available [facility] 22:10:35 Headache 00059945 Completed 201909/20/2021 Problem Code: R51; Problem Code Type: ICD-10; Not Available [facility] 2 22:10:36 General examinat ion of patient Active 2019 Not Available [facility] 2 22:10:36 Syphilis test finding 005226148 Active 2020 Problem Code: Z11.3; Problem Code Type: ICD-10; Not Available [facility] 2 22:10:36 Acute sinusiti s 68916994 Completed 201702/19/2018 Problem Code: J01.90; Problem Code Type: ICD-10; Not Available [facility] 2 22:10:36 Uses combined oral contrace ption 154140329 Active 2019 Problem Code: Z30.011; Problem Code Type: ICD-10; Not Available [facility] 2 22:10:37 Disorder of upper respirat ory system 608706686 Completed 201708/20/2017 Problem Code: J06.9; Problem Code Type: ICD-10; Not Available [facility] 2 22:10:37 Seasonal allergic rhinitis 339990114 Completed 201612/15/2016 Problem Code: J30.2; Problem Code Type: ICD-10; Not Available [facility] 22:10:37 Body mass index 30+ - obesity 768773203 Active 2021 Problem Code: Z68.36; Problem Code Type: ICD-10; Not Available [facility] 22:10:37 Acute upper respirat ory infectio n of multiple sites Completed 201605/30/2016 Problem Code: 465.8; Problem Code Type: ICD-9; Not Available [facility] 22:10:38 Pneumoni a 279708633 Completed 201610/15/2016 Problem Code: 483.8; Problem Code Type: ICD-9; Not Available [facility] 22:10:38 Cough 35781938 Completed 201605/30/2016 Problem Code: R05; Problem Code Type: ICD-10; Not Available [facility] 22:10:38 Allergic rhinitis caused by pollen 41920162 Completed 201612/15/2016 Problem Code: 477.0; Problem Code Type: ICD-9; Not Available [facility] 22:10:39 Glossody tanmay 01197380 Completed 201705/26/2018 Problem Code: 529.6; Problem Code Type: ICD-9; Not Available [facility] 22:10:39 Recurren t major depressi ve episodes , moderate 715136936 Active 2019 Problem Code: 296.32; Problem Code Type: ICD-9; Not Available [facility] 22:10:39 Acute upper respirat ory infectio n 41337782 Completed 201708/20/2017 Problem Code: 465.9; Problem Code Type: ICD-9; Not Available [facility] 22:10:40 Problem Notes None recorded. Procedures Surgical History Date Name Laterality Status Provider Name and Address Organization Details Recorded Time 04/08/2025 Date of Last Pap Smear completed AROLDO [facility] 04/18/2024 10:38:15 Imaging Results None recorded. Procedure Notes None recorded. Medical Equipment None Reported. Allergies No known drug allergies Medications Name Sig Start Date Stop Date Status Note LastModified by Organization Details LastModified Time amoxicillin 500 mg capsule TAKE 1 CAPSULE EVERY 12 HOURS FOR 10 DAYS 05/17 completed Not Available Not Available Not Available Miralax 17 gram/dose oral powder 1 capful in 8 oz beverage q day 12/15 completed Not Available Not Available Not Available promethazin e-DM 6.25 mg-15 mg/5 mL oral syrup Take 1 teaspoonf ul by mouth every 6 hours as needed. 03/27 completed Not Available Not Available Not Available Keppra 500 mg tablet Take 1/2 tablet(s) by mouth qd 08/28 completed Not Available Not Available Not Available nystatin 100,000 unit/mL oral suspension SWISH 4 ML AND SPIT OUT 4 TIMES EACH DAY. 12/01 completed Not Available Not Available Not Available azithromyci n 250 mg tablet TAKE 2 TABLETS ON THE FIRST DAY, THEN TAKE 1 TABLET EACH DAY ON THE NEXT 4 DAYS. 05/29 completed Not Available Not Available Not Available prednisone 20 mg tablet 04/18 completed Not Available Not Available Not Available Peridex 0.12 % mouthwash Rinse mouth bid for 30 seconds with 15ml. Use after brushing. Do not swallow. 05/26 completed Not Available Not Available Not Available prednisone 5 mg tablet 7pills po today and decrease by one q day 12/09 completed Not Available Not Available Not Available clindamycin HCl 150 mg capsule one po qid 08/16 completed Not Available Not Available Not Available oxcarbazepi ne 300 mg tablet TAKE 1/2 TABLET 2 TIMES EACH DAY FOR 7 DAYS. THEN, TAKE 1 TABLET 2 TIMES EACH DAY FOR 7 DAYS. THEN, TAKE 1 AND 1/2 TABLET 2 TIMES EACH DAY. active Not Available Not Available No t Available valproic acid 250 mg capsule Take 1 capsule every 8 hours by oral route for 30 days. 05/29 completed Not Available Not Available Not Available dextrometho rphan-guaif enesin 10 mg-100 mg/5 mL oral syrup Take 1 teaspoon by mouth q4h prn for cough 04/14 completed Not Available Not Available Not Available sulfamethox azole 800 mg-trimetho prim 160 mg tablet TAKE 1 TABLET EVERY 12 HOURS FOR 10 DAYS 12/01 completed Not Available Not Available Not Available omeprazole 40 mg capsule,del ayed release TAKE 1 CAPSULE 1 TIME EACH DAY 05/29 completed Not Available Not Available Not Available triamcinolo ne acetonide 0.1 % topical cream APPLY A THIN FILM TO THE AFFECTED AREA OF SKIN 2 TIMES EACH DAY active Not Available Not Available No t Available Tessalon Perles 100 mg capsule one pill every 8 hours as needed for cough 07/12 completed Not Available Not Available Not Available amoxicillin 875 mg tablet TAKE 1 TABLET EVERY 12 HOURS FOR 10 DAYS 07/30 completed Not Available Not Available Not Available oseltamivir 75 mg capsule TAKE 1 CAPSULE 2 TIMES EACH DAY FOR 4 DAYS active Not Available Not Available No t Available sertraline 25 mg tablet TAKE 1 TABLET 1 TIME EACH DAY active Not Available Not Available No t Available oxcarbazepi ne 600 mg tablet TAKE 1 AND 1/2 TABLETS 2 TIMES EACH DAY active Not Available Not Available No t Available hydroxyzine HCl 25 mg tablet take 1 tablet (25 mg) by oral route 2 times per day for anxiety 10/23 completed Not Available Not Available Not Available levetiracet am 750 mg tablet TAKE 1 TABLET BY MOUTH TWICE DAILY 05/29 completed Not Available Not Available Not Available prednisone 5 mg tablets in a dose pack take as directed 08/10 completed Not Available Not Available Not Available methylpredn isolone 4 mg tablets in a dose pack TAKE ACCORDING TO PACKAGE INSTRUCTI ONS 01/24 completed Not Available Not Available Not Available ondansetron 4 mg disintegrat ing tablet active Not Available Not Available N ot Available cefdinir 300 mg capsule take 1 capsule (300 mg) by oral route every 12 hours 12/04 completed Not Available Not Available Not Available fluoxetine 20 mg capsule take 1 capsule (20 mg) by oral route once daily in the morning 09/20 completed Not Available Not Available Not Available sertraline 50 mg tablet TAKE 1 TABLET 1 TIME EACH DAY 12/01 completed Not Available Not Available Not Available lamotrigine 100 mg tablet take 1 tablet (100 mg) by oral route daily 12/01 completed Not Available Not Available Not Available loratadine 10 mg tablet Take 1 tablet(s) by mouth daily 12/15 completed Not Available Not Available Not Available amoxicillin 875 mg-potassiu m clavulanate 125 mg tablet Take 1 tablet every 12 hours by oral route for 7 days. 04/07 completed Not Available Not Available Not Available Vitamin 27 mg iron-0.8 mg tablet TAKE 1 TABLET 1 TIME EACH DAY 12/01 completed Not Available Not Available Not Available norgestimat e 0.18 mg/0.215mg/ 0.25 mg-ethinyl estradiol 0.025 mg tablet take 1 tablet by oral route once daily 08/10 completed Not Available Not Available Not Available Zoloft 12/01 completed Not Available Not Available Not Available levocetiriz ine 5 mg tablet TAKE 1 TABLET 1 TIME EACH DAY AT BEDTIME 12/01 completed Not Available Not Available Not Available Robitussin Cough and Cold CF 2.5 mg-5 mg-50 mg/5 mL oral liquid 1 teaspoon PO every 4-6 hours daily. 10/24 completed Not Available Not Available Not Available Flowflex COVID-19 Antigen Home Test kit USE DIRECTED 12/01 completed Not Available Not Available Not Available Vitals Date Recorded Body height Body mass index (BMI) Body weight Heart rate Oxygen saturation Oxygen saturation in Arterial blood by Pulse oximetry Systolic blood pressure Diastolic blood pressure Provider Name and Address Organization Details Last Updated DateTime 5 160.02 cm 38 kg/m2 96731.9 2 g 79 /min 99 % 99 % 121 mm[Hg] 87 mm[Hg] AROLDO BRIZUELA [facility] [employer] [facility]. 5 14:14:04 Date Recorded Body height Body mass index (BMI) Body weight Heart rate Oxygen saturation Oxygen saturation in Arterial blood by Pulse oximetry Systolic blood pressure Diastolic blood pressure Provider Name and Address Organization Details Last Updated DateTime 4 160.02 cm 37.6 kg/m2 38067.5 8 g 79 /min 98 % 98 % 114 mm[Hg] 76 mm[Hg] Gayle [place] [facility]. 4 10:20:06 Date Recorded Body height Body mass index (BMI) Body weight Heart rate Oxygen saturation Oxygen saturation in Arterial blood by Pulse oximetry Systolic blood pressure Diastolic blood pressure Provider Name and Address Organization Details Last Updated DateTime 4 160.02 cm 37.3 kg/m2 00189.5 5 g 77 /min 96 % 96 % 110 mm[Hg] 72 mm[Hg] AROLDO BRIZUELA [facility]. 4 13:13:38 Date Recorded Body height Body mass index (BMI) Body weight Heart rate Oxygen saturation Oxygen saturation in Arterial blood by Pulse oximetry Body temperature Systolic blood pressure Diastolic blood pressure Provider Name and Address Organization Details Last Updated DateTime 4 160.02 cm 37.6 kg/m2 74316.9 8 g 80 /min 98 % 98 % 97.8 [degF] 120 mm[Hg] 77 mm[Hg] Angela Franklin [facility]. 4 13:50:38 Social History Question Answer Notes LastModified by Organizat ion Details LastModified Time Tobacco Smoking Status Never Smoker Salina bhatt [employer], [address]. 01/09/2023 09:37:20 Do You Have An Advance Directive? No [email or web address] Information n ot available 09/12/2023 Is Your Home Air Conditioned? Yes Information not available 12/01/2022 Do You Wear A Helmet When Biking? Yes Information not available 04/18/2024 Are You Blind Or Do You Have Difficulty Seeing? No Information n ot available 12/01/2022 What Is Your Level Of Caffeine Consumption? Heavy Information not available 12/01/2022 Are You A Caregiver? No Information not available 12/01/2022 In The 14 Days Before Symptom Onset, Have You Had Close Contact With A Laboratory-confirm ed COVID-19 While That Case Was Ill? No Information n ot available 04/18/2024 In The 14 Days Before Symptom Onset, Have You Had Close Contact With A Person Who Is Under Investigation For COVID-19 While That Person Was Ill? No Information not available 04/18/2024 Have You Been To An Area Known To Be High Risk For COVID-19? No Information not available 12/01/2022 Are You Deaf Or Do You Have Serious Difficulty Hearing? No Information not available 12/01/2022 What Type Of Diet Are You Following? REGULAR Information n ot available 04/18/2024 Which Illicit Or Recreational Drugs Have You Used? Marijuana [email or web address] Information not available 09/12/2023 Who Is Your Employer? [employer] [email or web address] Information not available 09/12/2023 Have There Been Any Changes To Your Family Or Social Situation? No Information no t available 12/01/2022 Are There Any Guns Present In Your Home? No [email or web address] Information not available 05/29/2024 Do You Have A Medical Power Of Guillotine Operator? No [email or web address] Information not available 09/12/2023 What Was The Date Of Your Most Recent Tobacco Screening? 05/29/2024 Information not available 05/29/2024 What Is Your Relationship Status? Single Information not available 12/01/2022 Do You Use Your Seat Belt Or Car Seat Routinely? Yes Information not available 12/01/2022 Are You Sexually Active? Yes [email or web address] Information not available 04/07/2024 Do You Have Smoke And Carbon Monoxide Detectors In Your Home? Yes Information not available 12/01/2022 Are You Passively Exposed To Smoke? Yes [email or web address] Information no t available 05/29/2024 Are There Any Smokers In Your House? Yes Information not available 05/29/2024 Do You Participate In Social Media? No Information not available 04/18/2024 Has Tobacco Cessation Counseling Been Provided? No Information not available 04/18/2024 Have You Recently Traveled Abroad? No Information not available 12/01/2022 Have You Used IV Drugs? No Information not available 04/18/2024 Do You Have Difficulty Walking Or Climbing Stairs? No Information not available 12/01/2022 Are You Currently In School? No [email or web address] Information not available 09/12/2023 Do You Have Any Dietary Restrictions? No Information not available 04/18/2024 Sex: Female Functional Status Question Answer Note LastModified by Organizat ion Details LastModified Time Do you use any illicit or recreational drugs? Yes [email or web address] Information not available 09/12/2023 Do you or have you ever used any other forms of tobacco or nicotine? No [email or web address] Information not available 09/12/2023 What is your level of alcohol consumption? None Information not available 12/01/2022 Are you currently employed? Yes [email or web address] Information not available 09/12/2023 Do you have transportation difficulties? No Information not available 12/01/2022 Are you able to walk? YESWOREST Information not available 12/01/2022 Do you have difficulty doing errands alone? No Information not available 12/01/2022 Are you able to care for yourself? Yes Information not available 12/01/2022 Do you have difficulty dressing or bathing? No Information not available 12/01/2022 Mental Status Question Answer Note LastModified by Organizat ion Details LastModified Time Do you feel stressed (tense, restless, nervous, or anxious, or unable to sleep at night)? [id number] Information not available 04/18/2024 Do you have difficulty concentrating, remembering or making decisions? No Information no t available 12/01/2022 Family History Relationship Description Onset Age of this Age Resolved Age Notes LastModified by Organization Details LastModified Time Unspecified Relation Family history of drug abuse Relati ve: ''; [email or web address] Not available 09/12/2023 14:22:21 Unspecified Relation Family history of diabetes mellitus type 2 Relati ve: ''; Not available 09/12/2023 14:22:21 Unspecified Relation Family history of Hypertension Relati ve: ''; [email or web address] Not available 09/12/2023 14:22:21 Unspecified Relation Family history of alcoholism Relati ve: ''; [id number] Not available 09/12/2023 14:22:21 Mother Anxiety disorder [email or web address] Not available 05/2023 14:22:21 Mother Depressive disorder [id number] Not available 05/2023 14:22:21 Mother Arthritis [id number] Not avai lable 09/12/2023 14:22:21 Mother Hypertensive disorder Not available 05/2023 14:22:21 Sister Hypercholest erolemia [email or web address] Not available 05/2023 14:22:21 Sister Anxiety disorder [id number] Not available 05/2023 14:22:21 Sister Depressive disorder [id number] Not available 05/2023 14:22:21 Sister Hypertensive disorder [id number] Not available 05/2023 14:22:21 Father Hypercholest erolemia [id number] Not available 05/2023 14:22:21 Father Harmful pattern of use of alcohol [email or web address] Not available 05/2023 14:22:21 Father Arthritis [id number] Not avai lable 09/12/2023 14:22:21 Father Hypertensive disorder [id number] Not available 05/2023 14:22:21 Notes:*Procedure Description : Documented family medical history in mother*Relative: Mother *Procedure Description: Documented family medical history in father*Relative: Father Medical History Condition Response Allergies (Food, seasonal, environmental ) Y Emergency room visit since last appointm ent. N Depression Y Anxiety Disorder Y Obesity Y Acid Reflux (GERD) Y Bladder or Kidney Problems Y Hospitalizations N Depression/ depression Y Gynecological History Statement/Question Response Sexually Active? Y Menses Monthly N STIs/STDs N Date of Last Pap Smear 04/08/2025 Current Control Method Fertility I ssues Age at Menarche 18 Most Recent Mammogram LMP Approximate Obstetrics History GPAL:G 0 P 0 0 0 0 Immunizations Vaccine Type Date Status Note Provider Nam e and Address Organization Details Recorded Time Hib, unspecified formulation 8 completed AROLDO bhatt [facility] 04/07/2024 13:01:51 Hib, unspecified formulation 0 юлия bhatt [facility] 04/07/2024 13:01:51 Hib, unspecified formulation 8 completed AROLDO bhatt [facility] 04/07/2024 13:01:51 Hib-Hep B 9 completed AROLDOTAQUERIA BRIZUELA null, [facility]. 04/07/2024 13:01:51 IPV 8 completed AROLDO BRIZUELA null, [facility] 04/07/2024 13:01:51 IPV 0 completed AROLDO BRIZUELA [place], [facility] 04/07/2024 13:01:51 IPV 2 completed AROLDO [employer], [facility]. 04/07/2024 13:01:51 IPV 8 completed [employer], [facility]. 04/07/2024 13:01:51 MMR 0 completed [employer], [facility]. 04/07/2024 13:01:51 MMR 2 completed [employer], [facility]. 04/07/2024 13:01:51 COVID-19, mRNA, LNP-S, PF, 100 mcg/0.5mL dose or 50 mcg/0.25mL dose 1 completed [employer], [facility]. 04/07/2024 13:01:51 COVID-19 vaccine, vector-nr, rS-Ad26, PF, 0.5 mL 1 completed AROLDO BRIZUELA [facility], [facility]. 04/07/2024 13:01:51 Tdap 0 completed AROLDO BRIZUELA [facility], [facility]. 04/07/2024 13:01:51 varicella 2 completed AROLDO [employer], [facility]. 04/07/2024 13:01:51 HPV, quadrivalent 0 completed AROLDO BRIZUELA Al[facility]za, [facility] 04/07/2024 13:01:51 Hep B, adolescent or pediatric 8 completed [employer], [facility]. 04/07/2024 13:01:51 DTaP, unspecified formulation 9 completed AROLDO BRIZUELA null, [facility] 04/07/2024 13:01:51 DTaP, unspecified formulation 3 completed AROLDO BRIZUELA null, [facility] 04/07/2024 13:01:51 DTaP, unspecified formulation 8 completed AROLDO BRIZUELA null, [facility] 04/07/2024 13:01:51 DTaP, unspecified formulation 0 completed AROLDO BRIZUELA null, [facility] 04/07/2024 13:01:51 DTaP, unspecified formulation 8 completed AROLDO bhatt, [facility] 04/07/2024 13:01:52 meningococcal MCV4, unspecified formulation 0 юлия bhatt, [facility] 04/07/2024 13:01:52 Past Encounters Encounter ID Performer Location Encounter Start Date Encounter Closed Date Diagnosis/Indication Diagnosis SNOMED-CT Code Diagnosis ICD10 Code Diagnosis Note [id number] [place] [id number] 2022 11:29:07 2022 12:03:41 Cyst of skin 199582970 L72.9 Moderate r ecurrent major depression 68980617 F33.1 Allergic rhinitis 885763 04 J30.9 Body mass index 30+ - obesity 313719179 Z68.37 [id number] Neetu Templeton[address] [address] 12/01/2022 13:07:36 12/01/2022 13:43:25 Major depressive disorder 795061808 F32.9 Gastroesop hageal reflux disease without esophagitis 589707266 K21.9 Body mass index 30+ - obesity 587783234 Z68.37 [id number] [place] [id number] 01/09/2023 09:20:52 01/09/2023 10:31:47 Pain in throat 710871347 R07.0 Acute otitis media 12745 03 H66.90 Body mass index 30+ - obesity 109133275 Z68.37 [id number] [place] [address] 0 05/17/2023 08:46:32 05/17/2023 09:32:00 Major depressive disorder 743051794 F32.9 Gastroesop hageal reflux disease without esophagitis 328866597 K21.9 Pain in throat 683059894 R07.0 Streptococ chika sore throat 50762036 J02.0 Body mass index 30+ - obesity 079943784 Z68.37 [id number] [place] [address] 0 07/17/2023 14:12:51 07/17/2023 14:25:17 [id number] [place] [address] 07/31/2023 13:26:44 07/31/2023 14:17:25 Fever 962403989 R50.9 Screening for malignant neoplasm of cervix declined 164432391 Z53.20 Influenza caused by Influenza B virus 16836668 J10.1 COVID-19 895925779 U07.1 Body mass index 30+ - obesity 085454188 Z68.37 [id number] [place] [address] 09/12/2023 14:15:11 09/12/2023 15:14:50 Purpuric rash 105106697 D69.2 Seizure 24587097 R56.9 [id number] [place] [address] 01/25/2024 09:51:11 01/25/2024 10:46:32 Amenorrhea 81782979 N91.2 Acute sinusitis 13844070 J01.90 Female infertility 78989 08 N97.9 Body mass index 30+ - obesity 510965369 Z68.37 [id number] Neetu Templeton [place] [address] 02/07/2024 08:37:03 02/07/2024 08:43:55 Finding related to health literacy 422265495 Z55.6 Food insecurity 93885546 3 Z59.41 [id number] Miguel Ayoub CNM [address],[facility] e [place] [address] 04/07/2024 13:01:06 04/07/2024 15:22:22 Gynecologic examination 58779060 Z01.419 Breast lump 53103160 N63 .0 Pt to assess this again in 4-6 wks, if still present, pt to RTC for US of this [id number] Neetu Templeton [place] [address] 04/18/2024 13:28:10 04/18/2024 14:35:39 Major depressive disorder 271491631 F32.9 Seizure disorder 2422431 02 G40.909 Body mass index 30+ - obesity 345709394 Z68.37 [id number] Miguel Ayoub CNM [address] 7 05/29/2024 14:00:38 05/29/2024 14:38:24 Fibrocystic changes of bilateral breasts 8892765817 3679676 N60.11 N60.12 Discussed appears to be fibrocysti c in nature, offered dx US/mammo, pt okay to observe for now. Discussed risk and if so, RTC Health Concerns Section Related Observation LastModified by Organization Detai ls LastModified Time None Recorded Concern Status LastModified by Organization Details LastModified Time None Recorded Advance Directives Directive N: Payers Insurance Date Sequence Insurance Name Policy Number Policy Morrison Covered Member ID Morrison Member ID Guarantor Name 2022 1 *SELF PAY* Elliot Yap 07/23/2024 1 [facility] (MEDICAID HMO) Ryland Yap [id number] Ly Yap 07/23/2024 [place] [facility] (MEDICAID) Ryland Yap [id number] Ly Yap Notes Date Note Type Note Provider Name and Address Organization Details Recorded Time 01/25/2024 text/html pt here today wi th c/o amenorrhea and breast tenderness x2 months. however pt states that she started her period today. UPT neg. pt states i just want to be and its just not working out . pt states she hasnt had a pap in around 4 years. i highly recommend pt have a pap and she can talk with her obgyn about infertility. pt also states that she has sinus pressure in forehead and sinuses for the past few days. on exam, ears with fluid, throat WNL, sinuses tender, lungs clear. i will order abx. educated pt on new med. pt voiced understanding. increase fluids. return for worsening symptoms. Neetu Templeton APRN [address] [place], [address], [facility], [address] 01/25/2024 10:44:57 04/07/2024 text/html Pt here today fo r annual exam as a new pt. Pt reports today she has been having seizures, has had 4 this week. Went to ER yesterday and started on meds, however the meds they started her on make me mean. Was on it (Keppra) in past and made her mean. She has appt with PCP coming up soon d/t seizure d/o. Her tongue is swollen and bruised from biting it during seizures. She is not driving herself today. She feels she has had a pap several years ago, doesn't remember results. I think they told me I had follicles. I am just going to assume that may have been an US...? PCOS, given history (irregular periods, infertility). Will allow time for her to get her seizure d/o under control and can then plan to address this as pt desires. Miguel Ayoub CNM [address] [place], [address], [facility] [facility] [employer] 04/07/2024 15:17:38 04/18/2024 text/html pt here today fo r an ER f/u. pt states that on 04/06 she was in bed and started to have a seizure and it woke her boyfriend up and the ambulance was called. according the the ER note, on the way to the hospital she had another seizure and versed was given. there was a ct scan done and labs all they were neg. pt was prescribed keppra and declined an assessment by neuro at the hospital. pt states that she did have a seizure in 2018 and keppra was prescribed and it made her mean so she stopped taking it. she was then prescribed oxcarbazepine and states that made her sleepy. was told by neuro that since she hadnt had a seizure in 3 years she could stop taking it so she did. and hasnt taken anything since and hasnt seen neuro since. pt states that she told them in ER she didnt like keppra that it makes her mean however since she had taken it before they prescribed it again. pt states that she just cannot take it anymore. 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 then all of the sudden pt starts stuttering and asking me how much longer she needs to stay off of work. i told pt to just stop the keppra and she can start the depakote and i will try to get into neuro [place]. she should be okay to go back to work next week. pt voiced understanding. Neetu Templeton APRN [address] [place], [address], [facility], [address]. 04/18/2024 15:29:10 05/29/2024 text/html Pt scheduled tod ay with c/o previous right breast mass. States it did get larger, but smaller now. Not fixed, it is movable. no pain or skin changes Miguel Ayoub CNM [address] [place], [address], [facility] [employer] 05/29/2024 14:30:34 OBGyn Episode No OBEpisode recorded.
--- OUTSIDE RECORDS SUMMARY | 2024-10-31 20:37 | XMS_ITS | Data Portability ---
Author Organization [facility] - [place] & TIMBO Serna ADMIN Address [address] [place] [id number] Care Team Providers Care Banbury Mill Operator Name Role Phone LEMUEL FOSTER Primary Care Provider [phone] Assessment Encounter Date Assessment Date Assessment LastModified by Organization Details LastModified Time 04/30/2024 04/30/2024 -MRI brain w/ and w/out -EEG -Oxcarb titrate up to 450 mg BID -Keppra taper off -f/u as [place] [id number] Not available 04/30/2024 15:01:45 06/19/2024 06/19/2024 -OXC titrate up to 600 mg BID -labs next week: CBC, CMP, OXC -reviewed MRI brain, EEG -reviewed hospital records [place] [address] Not available 06/19/2024 15:51:30 07/29/2024 07/29/2024 -Oxcarb 900 mg BID -labs: CBC, CMP, OXC level -some aspects of her history suggest MELYSSA, but EEGs have not shown convincing evidence of this. -if no improvement, consider transition to alternative AED for generalized epilepsy such as ALLEN or TPM. -refer for EMU monitoring -reviewed epilepsy education -follow up as scheduled [place] [address] Not available 07/29/2024 16:40:23 Plan of Treatment Reminders Order Date Submit Date Provider Last Modified By Organization Details Last Modified Time Details Appointments OV EST 15 2024 03:15P Amna Ceron M.D Not available Not available Not available Lab CMP, serum or plasma 2024 025 [facility] (Lab Registration) , [address] [place] [address] [place], [address], 08/05/2024 07:50:27 CBC w/ auto diff 2024 025 [facility] (Lab Registration) , [address] [place] [address] [place], [address], 08/05/2024 07:50:27 oxcarbaz epine, serum 2024 025 [facility] (Lab Registration) , [address] [place] [address] [place], [address], 08/05/2024 07:50:27 oxcarbaz epine, serum [address] [facility] (Lab Registration) , [address] [place] [address] [place], [address], 06/26/2024 08:13:13 CMP, serum or plasma [address] [facility] (Lab Registration) , [address] [place] [address] [place], [address], 06/26/2024 08:13:13 CBC w/ auto diff [address] (Lab Registration) , [address] [place] [address] [place], [address], 06/26/2024 08:13:13 Referral None recorded . Procedures electroe ncephalo gram (EEG); includin g recordin g awake and asleep (PROC) 2023 024 [facility] Central Scheduling, [address] [place] [address] [place], [address], 05/12/2024 07:52:47 Surgeries None recorded . Imaging MRI, brain, w/wo contrast 2023 024 [facility] (Central Scheduling), [address] [place] [address] [place], [address], 05/12/2024 07:52:53 electroe ncephalo gram 2023 024 [facility] (Centralized Scheduling), [address] , [place], [address], 10/26/2023 08:21:06 Medication Orders oxcarbaz epine 600 mg tablet 2024 025 [facility] [place] [facility], [address] [place] [address], [id number], 08/19/2024 17:03:50 Valtoco 20 mg/2 spray (10mg/0. 1mL x2) nasal spray 2024 025 [place] [place] [facility], [address] [place] [address], [id number], 08/01/2024 17:52:04 oxcarbaz epine 600 mg tablet 2024 025 [place] [place] [facility], [address] [place] [address], [id number], 06/20/2024 16:05:59 oxcarbaz epine 300 mg tablet 2023 024 [facility] [place] [facility], [address] [place] [address], [id number], 06/02/2024 13:33:49 Patient TargetsNo targets recorded. Patient InstructionsNo instructions recorded. Reason for Referral None Reported. Results Created Date Observation Date Name Description Value Unit Range Abnormal Flag Note LastModifiedBy Organization Detail LastModifiedTime 10/26/19 24 elect roenc ephal ogram No observ ation record ed. [facility] (Centralized Scheduling) [address], [place], [address], 10/26/2023 08:21:08 05/22/19 25 05/22/2024 MRI, brain , w/wo contr ast [facility] [address] [place] [address] (Phone ) DAYA Lozano REPORT Name: RYLAND YAP : 1995 Accoun t #: [id number] Age: 28 Years Patien t Type: Outpat ient Sex: F Access ion#: [id number] Exam Descri ption: MRI BRAIN WOW - ROUTIN E Exam Reason : epilep sy Order Date/T damon: 2024 03:31: 00 PM Dictat ed By: Abdi manuel MD Orderi Physic sonia: BENITO CULLEN Attend ing Physic sonia: BENITO CULLEN MR BRAIN WITHOU T THEN WITH IV CONTRA ST perfor med on 05/22/19 25 2:31 PM CLOAK ROOM ATTENDANT. INDICA TION: epilep sy Additi onal Histor y: TECHNI QUE: Multip lanar, multis equenc e MRI brain perfor med with both pre- and post-c ontras t imagin g. COMPAR JULIO: Prior MRI brain of November 27, 2019 FINDIN GS: No restri cted diffus ion is presen t to sugges t an acute infarc t. The flow voids of the major intrac ranial vascul ar struct ures are intact . There is no space- occupy ing or enhanc ing mass lesion and no abnorm al fluid collec tion. There is no abnorm al post-c ontras t enhanc ement. There is no eviden ce of hemorr jaime. The ventri cles are within normal limits for size, config uratio n, and symmet ry. Brain parenc hymal volume is approp riate for age. Then sectio n imagin g throug h the tempor al lobes is unrema rkable withou t eviden ce of mesial tempor al sclero sis or hippoc ampal atroph y. No white matter lesion s are PAGE 1 OF 2 Name: RYLAND YAP : 1995 Accoun t #: [id number] Age: 28 Years Patien t Type: Outpat ient Sex: F Access ion#: [id number] Exam Descri ption: MRI BRAIN WOW - ROUTIN E Exam Reason : epilep sy Order Date/T damon: 2024 03:31: 00 PM detect ed on the T2 FLAIR sequen ce. Osseou s struct ures are unrema rkable . Small mucous retent ion cyst is seen within the right maxill marilynn sinus inferi felipe. Mastoi d air cells are clear. IMPRES ALTAGRACIA: Unrema rkable MRI brain withou t eviden ce of any acute intrac ranial proces s. Electr onical ly signed by: Abdi manuel MD 2024 04:10 PM EST RP Workst ation: [id number] Princi pal Interp reter Name: Abdi manuel Provid er ID: [id number] PAGE 2 OF 2 CC'ed Logic: Orderi ng Provid er: TIMMY OLIVER JUDE CC Provid er: KRISTIN HAQUE Attend ing Provid er: TIMMY OLIVER JUDE Referr ing Provid er: TIMMY OLIVER JUDE Admitt ing Provid er: TIMMY OLIVER JUDE [id number] [facility] (Central Scheduling) [address] [place] [address] [place], [address], 05/23/2024 08:26:08 05/22/19 25 05/22/2024 MRI, brain , w/wo contr ast No observ ation record ed. [facility] (Central Scheduling) [address] [place] [address] [place], [address], 05/23/2024 08:25:57 06/02/19 25 05/22/2024 elect roenc ephal ogram (EEG) ; inclu ding recor ding awake and aslee p (PROC ) No observ ation record ed. [facility] Central Scheduling [address] [place] [address] [place], [address], 06/03/2024 08:05:50 07/21/19 25 07/19/2024 elect roenc ephal ogram (EEG) ; inclu ding recor ding awake and aslee p (PROC ) No observ ation record ed. [facility] (Registration ) [address] [place] [address] [place], [address], 07/21/2024 12:39:39 Result Notes Documentation Provider Name and Address Organization Details Recorded Time Mri, Brain, W/wo Contrast : [address] [address] (Phone) IMAGING REPORT ___ Name: RYLAND YAP : 1995 Age: 28 Years Patient Type: Outpatient Sex: F Exam Description: MRI BRAIN WOW - ROUTINE Exam Reason: epilepsy Order Date/Time: 05/22/2024 03:31:00 PM Dictated By: Abdi White MD Ordering Physician: MICHAEL CERON Attending Physician: MICHAEL CERON ___ MR BRAIN WITHOUT THEN WITH IV CONTRAST performed on 05/22/2024 2:31 PM CLOAK ROOM ATTENDANT. INDICATION: epilepsy Additional History: TECHNIQUE: Multiplanar, multisequence MRI brain performed with both pre- and post-contrast imaging. COMPARISON: Prior MRI brain of November 27, 2019 FINDINGS: No restricted diffusion is present to suggest an acute infarct. The flow voids of the major intracranial vascular structures are intact. There is no space-occupying or enhancing mass lesion and no abnormal fluid collection. There is no abnormal post-contrast enhancement. There is no evidence of hemorrhage. The ventricles are within normal limits for size, configuration, and symmetry. Brain parenchymal volume is appropriate for age. Then section imaging through the temporal lobes is unremarkable without evidence of mesial temporal sclerosis or hippocampal atrophy. No white matter lesions are PAGE 1 OF 2 Name: RYLAND YAP : 1995 Age: 28 Years Patient Type: Outpatient Sex: F Exam Description: MRI BRAIN WOW - ROUTINE Exam Reason: epilepsy Order Date/Time: 05/22/2024 03:31:00 PM ___ detected on the T2 FLAIR sequence. Osseous structures are unremarkable. Small mucous retention cyst is seen within the right maxillary sinus inferiorly. Mastoid air cells are clear. IMPRESSION: Unremarkable MRI brain without evidence of any acute intracranial process. Electronically signed by: Abdi White MD 05/22/2024 04:10 PM [facility] Principal Needle Punch Machine Operator Helper Name: Abdi White Provider ID: [id number] PAGE 2 OF 2 CC'ed Logic: Ordering Provider: LENIN SUERO CC Provider: KRISTIN HDEZ Attending Provider: LENIN SUERO Referring Provider: LENIN SUERO Admitting Provider: LENIN Nash[place] Edgar [place], [place] - [facility] [place] 05/23/2024 08:26:08 Problems Name Problem SNOMED Code Status Onset Date Resolution Date Notes Provider Name and Address Organization Details Recorded Time Seizure [id number] Active 024 Mora Ahnrupert [place], [place] - [facility] & [place] 10/10/2023 10:46:48 Problem Notes None recorded. Procedures Surgical History Date Name Laterality Status Provider Name and Address Organization Details Recorded Time 04/07/2024 completed Ciarra Edgar COON - [facility] [place] 04/30/2024 14:29:42 04/07/2024 Date of Last Pap Smear completed Ciarra Hernández [facility] Martinez [facility] & [place] 04/30/2024 14:29:42 Imaging Results None recorded. Procedure Notes None recorded. Medical Equipment None Reported. Allergies No known drug allergies Medications Name Sig Start Date Stop Date Status Note LastModified by Organization Details LastModified Time amoxicillin 500 mg capsule TAKE 1 CAPSULE EVERY 12 HOURS FOR 10 DAYS 10/09 completed Not Available Not Available Not Available azithromyci n 250 mg tablet TAKE 2 TABLETS ON THE FIRST DAY, THEN TAKE 1 TABLET EACH DAY ON THE NEXT 4 DAYS. 04/30 completed Not Available Not Available Not Available prednisone 20 mg tablet TAKE 1 TABLET 2 TIMES EACH DAY FOR 5 DAYS 04/30 completed Not Available Not Available Not Available oxcarbazepi ne 300 mg tablet TAKE 1/2 TABLET 2 TIMES EACH DAY FOR 7 DAYS. THEN, TAKE 1 TABLET 2 TIMES EACH DAY FOR 7 DAYS. THEN, TAKE 1 AND 1/2 TABLET 2 TIMES EACH DAY. active Not Available Not Available No t Available valproic acid 250 mg capsule TAKE 1 CAPSULE EVERY 8 HOURS 04/30 completed Not Available Not Available Not Available omeprazole 40 mg capsule,del ayed release TAKE 1 CAPSULE 1 TIME EACH DAY 04/30 completed Not Available Not Available Not Available triamcinolo ne acetonide 0.1 % topical cream APPLY A THIN FILM TO THE AFFECTED AREA OF SKIN 2 TIMES EACH DAY 10/09 completed Not Available Not Available Not Available amoxicillin 875 mg tablet TAKE 1 TABLET EVERY 12 HOURS FOR 10 DAYS 10/09 completed Not Available Not Available Not Available oseltamivir 75 mg capsule TAKE 1 CAPSULE 2 TIMES EACH DAY FOR 4 DAYS 07/29 completed Not Available Not Available Not Available sertraline 25 mg tablet TAKE 1 TABLET 1 TIME EACH DAY active Not Available Not Available No t Available oxcarbazepi ne 600 mg tablet TAKE 1 AND 1/2 TABLETS 2 TIMES EACH DAY active Not Available Not Available No t Available levetiracet am 750 mg tablet TAKE 1 TABLET BY MOUTH TWICE DAILY 06/19 completed Not Available Not Available Not Available methylpredn isolone 4 mg tablets in a dose pack TAKE ACCORDING TO PACKAGE INSTRUCTI ONS 10/09 completed Not Available Not Available Not Available ondansetron 4 mg disintegrat ing tablet PLACE 1 TABLET UNDER THE TONGUE AND ALLOW TO DISSOLVE EVERY 6 TO 8 HOURS NEEDED active Not Available Not Available No t Available sertraline 50 mg tablet Take 1 tablet every day by oral route. 04/30 completed Not Available Not Available Not Available amoxicillin 875 mg-potassiu m clavulanate 125 mg tablet TAKE 1 TABLET EVERY 12 HOURS FOR 7 DAYS 04/30 completed Not Available Not Available Not Available Valtoco 20 mg/2 spray (10mg/0.1mL x2) nasal spray SPRAY 1 SPRAY IN ONE NOSTRIL NEEDED FOR SEIZURE, MAY REPEAT ONE TIME active Not Available Not Available No t Available Vitals Date Recorded Body height Body weight Body temperature Oxygen saturation Oxygen saturation in Arterial blood by Pulse oximetry Heart rate Systolic blood pressure Diastolic blood pressure Provider Name and Address Organization Details Last Updated DateTime 5 160.02 cm 30253.3 6 g 97.6 [degF] 99 % 99 % 106 /min 122 mm[Hg] 80 mm[Hg] Ciarra Hernández [place] - [facility] 5 15:29:41 Date Recorded Body height Body mass index (BMI) Body weight Body temperature Oxygen saturation Oxygen saturation in Arterial blood by Pulse oximetry Heart rate Systolic blood pressure Diastolic blood pressure Provider Name and Address Organization Details Last Updated DateTime 5 160.02 cm 38.1 kg/m2 23752.3 6 g 98.4 [degF] 98 % 98 % 99 /min 130 mm[Hg] 60 mm[Hg] Ciarra Hernández [facility] & [place] 5 16:09:45 Date Recorded Body height Body mass index (BMI) Body weight Heart rate Oxygen saturation Oxygen saturation in Arterial blood by Pulse oximetry Systolic blood pressure Diastolic blood pressure Provider Name and Address Organization Details Last Updated DateTime 4 160.02 cm 38.1 kg/m2 67139.0 8 g 82 /min 98 % 98 % 108 mm[Hg] 62 mm[Hg] Mora COON [facility] & [place] 4 10:59:04 Date Recorded Body height Body mass index (BMI) Body weight Body temperature Oxygen saturation Oxygen saturation in Arterial blood by Pulse oximetry Heart rate Systolic blood pressure Diastolic blood pressure Provider Name and Address Organization Details Last Updated DateTime 4 160.02 cm 37.8 kg/m2 78371.3 3 g 98.3 [degF] 98 % 98 % 83 /min 130 mm[Hg] 80 mm[Hg] Ciarra Hernández [facility] & [place] 4 14:29:11 Social History Question Answer Notes LastModified by Organizat ion Details LastModified Time Tobacco Smoking Status Never Smoker Mora Nguyễn [facility] & [place] 10/10/2023 08:12:33 Do You Have An Advance Directive? No [email or web address] Information not available 04/30/2024 Are You Blind Or Do You Have Difficulty Seeing? No [email or web address] Information not available 04/30/2024 What Is Your Level Of Caffeine Consumption? Heavy Information not available 10/10/2023 Which Illicit Or Recreational Drugs Have You Used? Marijuana Information not available 10/10/2023 How Many Years Have You Used Illicit Or Recreational Drugs? 8 Information not available 10/10/2023 What Is Your Relationship Status? Single Lives With Parents Information not available 10/10/2023 Are You Passively Exposed To Smoke? Yes [email or web address] Information not available 04/30/2024 Have You Used IV Drugs? No Information not available 10/10/2023 Are You Currently In School? No Diploma Information not available 10/10/2023 Sex: Female Functional Status Question Answer Note LastModified by Organizat ion Details LastModified Time Do you use any illicit or recreational drugs? Yes Information not available 10/10/2023 Do you or have you ever used any other forms of tobacco or nicotine? No Information not available 10/10/2023 What is your level of alcohol consumption? None Information not available 10/10/2023 Are you currently employed? Yes Information not available 10/10/2023 What is your occupation? [employer] Information not available 10/10/2023 What is your exercise level? None [email or web address] Information not available 04/30/2024 Mental Status None recorded. Family History Relationship Description Onset Age of this Age Resolved Age Notes LastModified by Organization Details LastModified Time Mother Anxiety disorder Not available 2023 14:16:32 Mother Depressive disorder Not available 2023 14:16:32 Mother Arthritis Not available 04/30/2024 14:16:32 Mother Hypertensive disorder ldalla Not available 2023 08:03:15 Mother Disorder of endocrine system pt. added direct ly (04/30) [email or web address] Not available 04/30/2024 12:08:26 Mother Mental health problem pt. added direct ly (04/30) [email or web address] Not available 04/30/2024 12:09:00 Mother Substance abuse pt. added direct ly (04/30) [email or web address] Not available 04/30/2024 12:13:10 Father Hyperlipidem ia Not available 2023 14:16:32 Father Alcoholism Not availabl e 04/30/2024 14:16:32 Father Arthritis Not available 04/30/2024 14:16:32 Father Hypertensive disorder ldalla Not available 2023 08:03:18 Father Chronic obstructive pulmonary disease pt. added direct ly (04/30) [email or web address] Not available 04/30/2024 12:06:35 Father Hearing loss pt. added direct ly (04/30) [email or web address] Not available 04/30/2024 12:08:38 Father Mental health problem pt. added direct ly (04/30) [email or web address] Not available 04/30/2024 12:09:00 Father Cerebrovascu lar accident pt. added direct ly (04/30) [email or web address] Not available 04/30/2024 12:10:11 Father Substance abuse pt. added direct ly (04/30) [email or web address] Not available 04/30/2024 12:13:10 Paternal Grandmother Chronic obstructive pulmonary disease pt. added direct ly (04/30) [email or web address] Not available 04/30/2024 12:06:35 Paternal Grandmother Disorder of endocrine system pt. added direct ly (04/30) [email or web address] Not available 04/30/2024 12:08:26 Paternal Grandmother Myocardial infarction pt. added direct ly (04/30) [email or web address] Not available 04/30/2024 12:11:52 Paternal Grandfather Chronic obstructive pulmonary disease pt. added direct ly (04/30) [email or web address] Not available 04/30/2024 12:06:35 Paternal Grandfather Disorder of endocrine system pt. added direct ly (04/30) [email or web address] Not available 04/30/2024 12:08:27 Paternal Grandfather Cerebrovascu lar accident pt. added direct ly (04/30) [email or web address] Not available 04/30/2024 12:10:12 Paternal Grandfather Myocardial infarction pt. added direct ly (04/30) [email or web address] Not available 04/30/2024 12:11:52 Paternal Grandfather Substance abuse pt. added direct ly (04/30) [email or web address] Not available 04/30/2024 12:13:10 Paternal Aunt Chronic obstructive pulmonary disease pt. added direct ly (04/30) [email or web address] Not available 04/30/2024 12:06:35 Paternal Aunt Disorder of endocrine system pt. added direct ly (04/30) [email or web address]-13 Not available 04/30/2024 12:08:27 Paternal Aunt Substance abuse pt. added direct ly (04/30) [email or web address] Not available 04/30/2024 12:13:10 Paternal Uncle Chronic obstructive pulmonary disease pt. added direct ly (04/30) [email or web address]-13 Not available 04/30/2024 12:06:35 Paternal Uncle Disorder of endocrine system pt. added direct ly (04/30) [email or web address] Not available 04/30/2024 12:08:27 Paternal Uncle Myocardial infarction pt. added direct ly (04/30) [email or web address] Not available 04/30/2024 12:11:52 Paternal Uncle Substance abuse pt. added direct ly (04/30) [email or web address] Not available 04/30/2024 12:13:10 Maternal Grandmother Disorder of endocrine system pt. added direct ly (04/30) [email or web address] Not available 04/30/2024 12:08:27 Maternal Grandfather Disorder of endocrine system pt. added direct ly (04/30) [email or web address] Not available 04/30/2024 12:08:27 Maternal Grandfather Cerebrovascu lar accident pt. added direct ly (04/30) [email or web address] Not available 04/30/2024 12:10:12 Maternal Grandfather Myocardial infarction pt. added direct ly (04/30) [email or web address] Not available 04/30/2024 12:11:52 Maternal Aunt Disorder of endocrine system pt. added direct ly (04/30) [email or web address] Not available 04/30/2024 12:08:27 Maternal Aunt Substance abuse pt. added direct ly (04/30) [email or web address] Not available 04/30/2024 12:13:10 Maternal Uncle Disorder of endocrine system pt. added direct ly (04/30) [email or web address] Not available 04/30/2024 12:08:27 Maternal Uncle Substance abuse pt. added direct ly (04/30) [email or web address] Not available 04/30/2024 12:13:10 Sister Mental health problem pt. added direct ly (04/30) [email or web address] Not available 04/30/2024 12:09:00 Medical History Condition Response Obesity Y Anxiety/Depression Y Seizures/Epilepsy Y Reflux/GERD Y Hospitalizations Sinusitis Y Headaches Y Acne Y Gynecological History Statement/Question Response Abnormal Pap N Flow Light 04/07/2024 Date of LMP 01/01/2024 Sexually Active? Y Menses Monthly N Date of Last Pap Smear 04/07/2024 Current Control Method None Age at Menarche 16 Obstetrics History GPAL:G 0 P 0 0 0 0 Past Encounters Encounter ID Performer Location Encounter Start Date Encounter Closed Date Diagnosis/Indication Diagnosis SNOMED-CT Code Diagnosis ICD10 Code Diagnosis Note [id number] Sherrie Yap, DO ZZ [facility] [address] [place] [address] 10/10/2023 10:40:46 10/10/2023 12:20:43 Seizure 58975291 R56.9 She had recent event in her sleep very suspicious for a seizure. In 2017 she had two seizures with +EEG that required treatment with anti-seizu re medication . She went off medication on her own in 2020 and done well until this recent event.I will order an EEG to help with treatment decision.S he does not drive. Seizure precaution s reviewed.W ill consider anti seizure medication once EEG can be reviewed. [id number] Michael Ceron M.D [facility] [address] [place] [employer] [phone] 04/30/2024 14:13:40 04/30/2024 15:01:18 Localization-related symptomatic epilepsy 999094580 G40.943 [id number] Earlene Varghese [facility] [address] [place] [employer] [id number] 06/19/2024 15:17:16 06/19/2024 16:00:26 Localization-related idiopathic epilepsy 397871677 G40.353 [id number] Earlene Varghese [facility] [address] [place] [employer] [id number] 07/29/2024 15:57:10 07/29/2024 16:37:31 Focal epilepsy 219294533 G40.109 Health Concerns Section Related Observation LastModified by Organization Detai ls LastModified Time None Recorded Concern Status LastModified by Organization Details LastModified Time None Recorded Advance Directives Directive N: Payers Insurance Date Sequence Insurance Name Policy Number Policy Morrison Covered Member ID Omrrison Member ID Guarantor Name 06/19/2024 1 [employer] [place] ([place] Ryland Yap [id number] Ryland Yap 06/19/2024 1 [employer] [place] ([place]ICA[place]) Ryland Yap [id number] Ryland Yap 07/30/2024 1 [employer] (MEDICARE REPLACEMENT/ ADVANTAGE - HMO) Ryland Yap [id number] Ryland Yap 10/27/2024 1 [employer] [place] ([place] H[place]) Ryland Yap [id number] Ryland Yap 06/19/2024 1 [place] [facility] CHOICES - FFS/TRADITIO NAL Ryland Yap [id number] Ryland Yap Notes Date Note Type Note Provider Name and Address Organization Details Recorded Time 10/10/2023 text/html 28 y/o right lynne ded female here for neurologic consultation requested by Soy Antunez regarding seizures. Ryland is accompanied by her mother who helps provide history. Ryland reports recently waking up with her tongue bitten on the side badly. She had gone to bed feeling normal. She woke up her normal time but then realized she had bitten her tongue. She denies any confusion or soreness in her muscles. She did not have any incontinence. 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 She kept getting sick and having allergy issues at that time. There was a water leak in her bedroom with visible mold at that time. She had two seizures in a single day. She was taken to the local ER and then transferred to . Ryland can't recall much about the hospitalization. Her mother reports that she was told her EEG was abnormal. She was started on keppra. She did not tolerated this due to agitation. She was then changed to oxcarbazepine. She does recall that this medication made her very tired but otherwise no side effects.She was followed by neurology at after the hospitalization. She was recommended to have EMU but while being hooked up she had a panic attack and could not do the testing. She never went back for follow up and just went off her medication on her own.She estimates being off the medication since 2020. She is not aware of any family hx of seizures. She has no history of febrile seizures. Her mother reports that her was normal and no issues with delivery of Ryland. Ryland met normal developmental milestones. Sherrie Yap, DO [address] [facility], [place], [address], [facility] & [place] 10/10/2023 11:47:11 04/30/2024 text/html Ms. Ryland Yap is a 28 y/o F who presents for new visit today.She has been having episodes concerning for seizures since 2018. Has had four episodes since then.Was on Keppra, did not tolerate now on Oxcarbazepine but stopped after she had been seizure free for a while. Recently over the past few months she has had three more seizures.She often feels sick and has tonic posturing of the extremities and clonic movements. She has a post ictal drowsiness and has had tongue biting and urinary incontinence followed post ictal drowsiness.Was started back on Keppra recently. Michael Ceron M.D [address] [place] [address], [address], [place], [address], [facility] & [place] 04/30/2024 15:02:12 06/19/2024 text/html Ms. Ryland Yap is a 28 y/o F who presents for new visit today.She has been having episodes concerning for seizures since 2018. Has had four episodes since then.Was on Keppra, did not tolerate now on Oxcarbazepine but stopped after she had been seizure free for a while. Recently over the past few months she has had three more seizures.Since last visit she titrated the OXC to 450 mg BID. She missed a few doses in May and during sleep she had a GTC seizure. She was post ictal aftewards. No tongue biting or incontinence. She had loud rhonchorous breathing and was foaming at the mouth. Went to an OSH ER and had CT head and labs which were unremarkable. In early May 2024 she had MRI brain and EEG which were normal. Michael Ceron M.D [address] [place] [address] Drive, [address], [place], [address], [facility] [place] 06/19/2024 15:59:46 07/29/2024 text/html Ms. Ryland Yap is a 28 y/o F who presents for follow up today.She has been having episodes concerning for seizures since 2018. Has had four episodes since then.Was on Keppra, did not tolerate now on Oxcarbazepine but stopped after she had been seizure free for a while. She had three seizures over the past 6-12 months.These typically occur at night or early in the morning.Since last visit she was admitted to the hospital earlier in July 2024 with a generalized seizure in the setting of influenza and possibly medication non-compliance. Oxcarb dose was increased to 900 mg BID.She has had a lot of twitching since she has been home from the hospital. Michael Ceron M.D [address] [place] [address], [address], [place], [address], [facility] - [facility] & [place] 07/29/2024 16:41:32 OBGyn Episode No OBEpisode recorded.
--- OUTSIDE RECORDS SUMMARY | 2024-10-31 20:37 | XMS_ITS | Encounter Summary ---
Author Organization [facility] [facility] Address [address] [place] [address] Care Team Providers Care Trash Truck Driver Name Role Phone Unavailable Primary Care Provider Unavailabl e Reason for Referral * Consultation (Routine) - Closed Specialty Diagnoses / Procedures Referred By Contac t Referred To Contact Neurology Diagnoses Epilepsy, unspecified, intractable, without status epilepticus (HCC) Precious Edward [address] [place] [address] Phone: tel: Maribel Sena MD [address] [facility] [address] [place] [address] Phone: tel: fax: Referral ID Status Reason Start Date Expiration Date V isits Requested Visits Authorized [id number] Closed Specialty Services Required 08/05/2024 08/05/2025 1 1 Encounter Details Date Type Department Care Team (Late st Contact Info) Description 08/05/2024 Outside Orders [facility] Neurology [address] [facility] [address] [place] [address] Precious Edward [address] [place] [address] Epilepsy, unspecified, intractable, without status epilepticus (HCC) (Primary Dx) Social History Tobacco Use Types Packs/Day Years Used Date Smoking Tobacco: Never Assessed Comments Unknown Sex and Gender Information Value Date Recorded Sex Assigned at Not on file Legal Sex Female 3:01 PM CDT Gender Identity Not on file Sexual Orientation Not on file documented as of this encounter Plan of Treatment Scheduled Referrals Name Type Priority Associated Diagnoses Orde r Schedule Ambulatory referral to Neurology Outpatient Referral Routine Epilepsy, unspecified, intractable, without status epilepticus (HCC) Ordered: 08/05/2024 documented as of this encounter Visit Diagnoses Diagnosis Epilepsy, unspecified, intractable, without status epilepticus (HCC)- Primary documented in this encounter
--- OUTSIDE RECORDS SUMMARY | 2024-10-31 20:37 | XMS_ITS | Clinical Summary ---
Author Organization [employer] [facility] [employer] Address [address] [place] [address] Care Team Providers Care Die Trimmer Name Role Phone Unavailable Primary Care Provider Unavailabl e Encounters Date Type Department Care Team Description 08/05/2024 Outside Orders [facility] Neurology [address] [facility] [address] [place] [phone] Precious Edward Epilepsy, unspecified, intractable, without status epilepticus (HCC) (Primary Dx) 08/05/2024 Orders Only [facility] Neurology [address] [facility] [address] [place] [phone] Precious Edward from Last 3 Months Social History Tobacco Use Types Packs/Day Years Used Date Smoking Tobacco: Never Assessed Comments Unknown Sex and Gender Information Value Date Recorded Sex Assigned at Not on file Legal Sex Female 3:01 PM CDT Gender Identity Not on file Sexual Orientation Not on file Plan of Treatment Health Maintenance Due Date Last Done Comments Depression Screening (12+) 2009 Tobacco Cessation Counseling and Screening (12+) 2009 HIV Screening 2012 Hepatitis C Screening 08/04/2015 DTAP/TDAP/TD VACCINES (1 - Tdap) 2016 Pap Smear 2018 COVID-19 VACCINE (2023-2 5 season) 2024 Influenza Vaccine (Season Ended) 2025 Pneumococcal Vaccine: 0-49 Years Aged Out No longer eligible based on patient's age to complete this topic Insurance [facility]
--- OUTSIDE RECORDS SUMMARY | 2024-10-31 20:37 | XMS_ITS | Referral Summary ---
Author Organization [employer] [facility] Address [address] [place] [address] Care Team Providers Care Enrollment Clerk Name Role Phone Unavailable Primary Care Provider Unavailabl e Encounters Date Type Department Care Team Description 08/05/2024 Outside Orders [facility] Neurology [address] [facility] [address] [address] Precious Edward Epilepsy, unspecified, intractable, without status epilepticus (HCC) (Primary Dx) 08/05/2024 Orders Only [facility] Neurology [address] [facility] [address] [place] [phone] Precious Edward from Last 3 Months Social History Tobacco Use Types Packs/Day Years Used Date Smoking Tobacco: Never Assessed Comments Unknown Sex and Gender Information Value Date Recorded Sex Assigned at Not on file Legal Sex Female 3:01 PM CDT Gender Identity Not on file Sexual Orientation Not on file Plan of Treatment Not on file Insurance [place] [address]
== END ==
LOC: SL 20:36
PROVIDERS: PCP Nurse Practitioner; Visit Provider Specialist
DX: G47.33 Obstructive sleep apnea (adult) (pediatric) (principal)
CPT/HCPCS: 95810

== ENCOUNTER 2025-01-08 14:06 | Outpatient (CLI) | payer MEDICAID, SELFPAY ==
--- OUTSIDE RECORDS SUMMARY | 2025-01-08 14:12 | XMS_ITS | Referral Summary ---
Author Organization [employer] ([place], [place], [place], [place]) Address [address] [place] [address] Care Team Providers Care Chief Airline Radio Operator Name Role Phone Unavailable Primary Care Provider Unavailabl e Social History Tobacco Use Types Packs/Day Years Used Date Smoking Tobacco: Never Assessed Comments Unknown Sex and Gender Information Value Date Recorded Sex Assigned at Not on file Legal Sex Female 3:01 PM CDT Gender Identity Not on file Sexual Orientation Not on file Plan of Treatment Not on file Insurance [facility]
--- OUTSIDE RECORDS SUMMARY | 2025-01-08 14:12 | XMS_ITS | Encounter Summary ---
Author Organization [employer] ([place], [place], [place], [place]) Address [address] [place] [address] Care Team Providers Care Athletic Agent Name Role Phone Unavailable Primary Care Provider Unavailabl e Reason for Referral * Consultation (Routine) - Closed Specialty Diagnoses / Procedures Referred By Contlizzie t Referred To Contact Neurology Diagnoses Epilepsy, unspecified, intractable, without status epilepticus (HCC) Precious Edward [address] [place] [address] Phone: tel: Maribel Sena MD [address] [facility] [address] [place] [address] Phone: tel: fax: Referral ID Status Reason Start Date Expiration Date V isits Requested Visits Authorized [id number] Closed Specialty Services Required 08/05/2024 08/05/2025 1 1 Encounter Details Date Type Department Care Team (Late st Contact Info) Description 08/05/2024 Outside Orders [facility] Neurology [address] [facility] [address] [place] [id number] Precious Edward [address] [place] [address] Epilepsy, unspecified, intractable, without status epilepticus (HCC) [...]
--- OUTSIDE RECORDS SUMMARY | 2025-01-08 14:12 | XMS_ITS | Clinical Summary ---
Author Organization [employer] ([place], [place], [place], [place]) Address [address] [place] [address] Care Team Providers Care Bell Valet Name Role Phone Unavailable Primary Care Provider [...] Tdap) 2016 Pap Smear 2018 COVID-19 VACCINE ( - 2023-2 5 season) 2024 Influenza Vaccine (#1) 2025 Pneumococcal Vaccine: 0-49 Years Aged Out No longer eligible based on patient's age to complete this topic Insurance [facility]
== END 2025-01-08 23:59 | disposition home or self-care (01) ==
LOC: RT 14:09
PROVIDERS: PCP Nurse Practitioner Family; Visit Provider Nurse Practitioner Family
DX: I49.1 Atrial premature depolarization (principal); I47.19 Other supraventricular tachycardia
CPT/HCPCS: 93270; 93272

== ENCOUNTER 2025-01-28 21:27 | Emergency (ER) | payer MEDICAID, SELFPAY ==
[2025-01-28 21:47] VITALS: BP 139/91; PULSE 88; RESP 22; TEMP 36.6; O2SAT 100; BMI 38.9
[2025-01-28 21:54] VITALS: BP 139/91; PULSE 88; RESP 22; TEMP 36.6; O2SAT 100
--- NOTE | 2025-01-28 22:03 | XR_ITS ---
PROCEDURE INFORMATION: Exam: XR Right Tibia and Fibula Exam date and time: 01/28/2025 10:12 PM Age: 29 years old Clinical indication: Injury or trauma; Fall; Sprain or strain; Ankle; Right TECHNIQUE: Imaging protocol: Radiologic exam of the right tibia and fibula. Views: 2 views. Total images: 2 COMPARISON: No relevant prior studies available. FINDINGS: Bones/joints: Acute nondisplaced oblique fracture of the distal fibula at the lateral malleolus, shown on the lateral view. No tibial fracture. No joint dislocation. Age-appropriate joint spaces. No suprapatellar joint effusion. Tibiotalar joint effusion. Soft tissues: Moderate anterolateral soft tissue swelling at the ankle. IMPRESSION: 1. Acute nondisplaced oblique fracture of the distal fibula at the lateral malleolus. 2. Tibiotalar joint effusion. 3. Moderate anterolateral soft tissue swelling at the ankle.
--- NOTE | 2025-01-28 22:27 | HMH.EDGENADL ---
Discharge Plan Disposition Patient Disposition: Home, Self-Care Condition: Good Prescriptions Prescriptions: No Action sertraline 25 mg tablet PO DAILY Patient Comments: TAKE 1 TABLET 1 TIME EACH DAY oxcarbazepine 600 mg tablet 600 mg PO BID Rx Instructions: Take 1-1/2 tablets 2 times each day Referrals Follow up/Referrals: Myron Bateman DO [Staff Physician, Orthopedics] - See instructions Provider,Nik Jimenez [Primary Care Provider, Unknown] - See instructions Activity Restrictions/Add. Instructions Additional Instructions/Restrictions: Please follow-up with our orthopedist Dr. Bateman. Recommend keeping the leg elevated is much as possible to help with swelling. Please take Tylenol and ibuprofen as needed for pain. Clinical Impressions Clinical Impression: Fracture of distal end of fibula Qualifiers: Encounter type: initial encounter Fracture type: closed Laterality: right Stand Alone Forms Stand Alone Forms: Work/School Release Print Language Print Language: Georgian Discharge ED Provider: Haley Joshua General Adult HPI <Haley Joshua DO - Last Filed: 01/28/25 22:27> General Chief complaint: Fall Stated complaint: fall Time Seen by Provider: 01/28/25 22:27 Mode of Arrival: EMS Source of Information: Patient and EMS Description of Symptoms (Recalled from ER Triage Doc. by RN): Pt presents to the ED via EMS following a fall down a step. Pt complains of severe pain in the tib/fib area of her right leg. Pt has a history of seizures, but denies any seizure activity at this time. States she was just walking down a step when she tripped on her pants and fell. Related Data Home Medications ?Medication ?Instructions ?Recorded ?Confirmed oxcarbazepine 600 mg tablet 600 mg PO BID 08/05/24 01/08/25 sertraline 25 mg tablet mg PO DAILY 01/08/25 01/08/25 Allergies Allergy/AdvReac Type Severity Reaction Status Date / Time No Known Allergies Allergy Verified 01/20/25 08:13 PFS <Haley Joshua DO - Last Filed: 01/28/25 22:27> [facility] Disclaimer: The information contained in this section may have been updated after the patient was seen, as this information can be updated by other users. Medical History MINA (obstructive sleep apnea) Convulsive syncope Cardiac arrhythmia Sleep-disordered breathing Snoring History of bladder problems History of gastroesophageal reflux (GERD) History of seizure History of anxiety disorder History of depression Surgical History No history of previous surgery Family History Other Alcoholism Anxiety Depression Diabetes Hyperlipidemia Hypertension Substance abuse Social History Smoking Status: Current every day smoker alcohol intake: never substance use type: marijuana current occupational status: employed Travel in the last 8 weeks?: None household members: significant other and family housing: house marital status: single 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 caffeine: Yes Have you lived/traveled outside US in past 30 days?: No Contact w/someone who lives/traveled outside US past 30 days?: No Exposure to someone with infectious disease in past 14 days?: No Do you have a fever (greater than 100.4 F or 38 C)?: No Have you tested positive for COVID-19?: No Exposed to someone with COVID-19 in past 14 days?: No Do you have a sore throat?: No Do you have a cough?: No Do you have any weakness?: No Do you have any diarrhea?: No Are you experiencing any unusual bleeding?: No Do you have any muscle aches/pain?: No Do you have any abdominal pain?: No Are you experiencing loss of taste or smell?: No Other Medical History Have you received the Flu Vaccine for this season: No Have you received the Pneumonia Vaccine: No <Isaac Ortiz MD - Last Filed: 01/29/25 02:01> ROS Obtained: Yes All systems reviewed & no additional complaints except as documented Physical Exam <Haley Joshua DO - Last Filed: 01/28/25 22:27> General General appearance: alert and in no apparent distress Head Head exam: atraumatic, normocephalic and normal inspection Eye Eye exam: Present normal appearance, PERRL and EOMI; Absent scleral icterus ENT ENT exam: Present normal exam and normal external ear exam Neck Neck exam: Present normal inspection and full ROM Chest Chest inspection: Present normal inspection and symmetric chest wall rise Respiratory Respiratory exam: Present normal lung sounds bilaterally; Absent respiratory distress or wheezes Cardiovascular Cardiovascular exam: Present regular rate, normal rhythm and normal heart sounds Abdominal Exam Abdominal exam: Present soft and distention; Absent tenderness, guarding or rebound Extremities Exam Extremities exam: Present normal inspection and full ROM Back Exam Back exam: Present normal inspection and full ROM Neurological Exam Neurological exam: Present alert and oriented X3 Psychiatric Psychiatric exam: Present normal affect and normal mood Skin Skin exam: Present warm and dry Medical Decision Making <Haley Joshua DO - Last Filed: 01/28/25 22:27> Medical Records Screening: Per USPSTF and CDC recommendations, given the prevalence of disease in our region, it is our hospital?s policy to screen for HIV and viral Hepatitis for all patients aged 18 and over and those with ongoing risk factors. Vital Signs: 01/28/25 21:47 01/28/25 21:54 01/28/25 21:54 Temperature 97.9 F 97.9 F Temperature Source Temporal Artery Scan Temporal Artery Scan Pulse Rate 88 Pulse Rate [Right] 88 Respiratory Rate 22 22 Blood Pressure 139/91 H Blood Pressure [Right Arm] 139/91 H Blood Pressure Mean [Right Arm] 107 Blood Pressure Source Automatic Cuff Blood Pressure Source [Right Arm] Automatic Cuff Blood Pressure Position Sitting Blood Pressure Position [Right Arm] Sitting 02 Sat by Pulse Oximetry 100 100 100 Oxygen Delivery Method Room Air Room Air Room Air 01/28/25 23:50 Temperature 98.3 F Temperature Source Oral Pulse Rate 89 Pulse Rate [Right] Respiratory Rate 16 Blood Pressure 133/87 Blood Pressure [Right Arm] Blood Pressure Mean [Right Arm] Blood Pressure Source Automatic Cuff Blood Pressure Source [Right Arm] Blood Pressure Position Sitting Blood Pressure Position [Right Arm] 02 Sat by Pulse Oximetry Oxygen Delivery Method Room Air Orders (Tests/Meds): ED MEDICATIONS Discontinued Medications Generic Name Dose Route Start Last Admin Trade Name Freq PRN Reason Stop Dose Admin Oxycodone HCl 5 mg 01/28/25 23:34 01/28/25 23:51 Oxycodone 5mg Immediate Release Tablet PO 01/28/25 23:35 5 mg ONCE ONE Administration ORDERS Category Date Time Status Fibula/tibia XR right 2 views [XR tibia fibula RT 2V] Exams 01/28/25 22:03 Completed Stat XR ankle RT min 3V Stat Exams 01/28/25 22:47 Completed XR foot RT min 3V Stat Exams 01/28/25 22:47 Completed <Isaac Ortiz MD - Last Filed: 01/29/25 02:01> Lucas Inquiry Pt receiving controlled substance: No Vital Signs: 01/28/25 21:47 01/28/25 21:54 01/28/25 21:54 Temperature 97.9 F 97.9 F Temperature Source Temporal Artery Scan Temporal Artery Scan Pulse Rate 88 Pulse Rate [Right] 88 Respiratory Rate 22 22 Blood Pressure 139/91 H Blood Pressure [Right Arm] 139/91 H Blood Pressure Mean [Right Arm] 107 Blood Pressure Source Automatic Cuff Blood Pressure Source [Right Arm] Automatic Cuff Blood Pressure Position Sitting Blood Pressure Position [Right Arm] Sitting 02 Sat by Pulse Oximetry 100 100 100 Oxygen Delivery Method Room Air Room Air Room Air 01/28/25 23:50 Temperature 98.3 F Temperature Source Oral Pulse Rate 89 Pulse Rate [Right] Respiratory Rate 16 Blood Pressure 133/87 Blood Pressure [Right Arm] Blood Pressure Mean [Right Arm] Blood Pressure Source Automatic Cuff Blood Pressure Source [Right Arm] Blood Pressure Position Sitting Blood Pressure Position [Right Arm] 02 Sat by Pulse Oximetry Oxygen Delivery Method Room Air Orders (Tests/Meds): ED MEDICATIONS Discontinued Medications Generic Name Dose Route Start Last Admin Trade Name Freq PRN Reason Stop Dose Admin Oxycodone HCl 5 mg 01/28/25 23:34 01/28/25 23:51 Oxycodone 5mg Immediate Release Tablet PO 01/28/25 23:35 5 mg ONCE ONE Administration ORDERS Category Date Time Status Fibula/tibia XR right 2 views [XR tibia fibula RT 2V] Exams 01/28/25 22:03 Completed Stat XR ankle RT min 3V Stat Exams 01/28/25 22:47 Completed XR foot RT min 3V Stat Exams 01/28/25 22:47 Completed Medical Decision Narrative: Angel HERNANDEZ: I assumed care of the patient at the time of handoff from the prior provider. On reassessment patient carleen hemodynamically stable. Radiographs were independently turbid by me and show evidence of a right distal fibular fracture, Clark C. No evidence of other fracture noted. Given this, patient was placed in a below-knee back slab and instructed to follow-up with our orthopedist Dr. Bateman for surgical evaluation. She was discharged with strict crutches and instructed to remain nonweightbearing. She is given a dose of Oxy for pain control prior to discharge. Procedures <Isaac Ortiz MD - Last Filed: 01/29/25 02:01> Orthopedic Splinting/Casting Injury #1: Side: right Lower Extremity Injury Location: lower leg Lower Extremity Immobilizer: posterior splint, stirrup splint and applied by nurse/dr pappas Other Orthopedic Equipment: crutches Post Cast/Splinting Neuro Status: intact Post Cast/Splinting Vasc Status: intact Critical Care <Isaac Ortiz MD - Last Filed: 01/29/25 02:01> Critical Care Time Critical Care Time: No
--- NOTE | 2025-01-28 22:47 | XR_ITS ---
PROCEDURE INFORMATION: Exam: XR Right Ankle Exam date and time: 01/28/2025 10:52 PM Age: 29 years old Clinical indication: Pain; Ankle; Right; Additional info: Tenderness S/P fall TECHNIQUE: Imaging protocol: Radiologic exam of the right ankle. Views: 3 or more views. Total images: 3 COMPARISON: CR XR TIBIA FIBULA RT 2V 01/28/2025 10:12 PM FINDINGS: Bones/joints: Acute nondisplaced oblique fracture of the distal fibula at the lateral malleolus. No joint dislocation. Ankle mortise is maintained. Tibiotalar joint effusion. Soft tissues: Moderate anterolateral soft tissue swelling. IMPRESSION: Acute nondisplaced oblique fracture of the distal fibula at the lateral malleolus.
--- NOTE | 2025-01-28 22:47 | XR_ITS ---
PROCEDURE INFORMATION: Exam: XR Right Foot Exam date and time: 01/28/2025 10:52 PM Age: 29 years old Clinical indication: Pain; Foot; Right; Additional info: Tenderness S/P fall TECHNIQUE: Imaging protocol: Radiologic exam of the right foot. Views: 3 or more views. Total images: 3 COMPARISON: CR XR TIBIA FIBULA RT 2V 01/28/2025 10:12 PM FINDINGS: Bones/joints: No acute fracture or joint dislocation. No concerning bone lesions. Unremarkable joint spaces. Previously described acute nondisplaced fracture distal fibula. Soft tissues: Soft tissue swelling anterolateral hindfoot and ankle. IMPRESSION: Negative right foot.
[2025-01-28 23:50] VITALS: BP 133/87; PULSE 89; RESP 16; TEMP 36.8; O2SAT 98
[2025-01-28] MEDS: OXYCODONE 5MG IMMEDIATE RELEASE TABLET 5 MG PO (23:51)
--- NOTE | 2025-01-29 04:36 | PC.NURSE ---
Pt called in for unbearable pain MD notified orders received.
== END 2025-01-28 23:53 | disposition home or self-care (01) ==
PROVIDERS: Emergency Provider Student in an Organized Health Care Education/Training Program
DX: S82.64XA Nondisplaced fracture of lateral malleolus of right fibula, initial encounter for closed fracture (principal); M79.661 Pain in right lower leg; F17.210 Nicotine dependence, cigarettes, uncomplicated; W10.8XXA Fall (on) (from) other stairs and steps, initial encounter
CPT/HCPCS: 29515; 73590; 73610; 73630; 99284

== ENCOUNTER 2025-02-02 10:30 | Outpatient (CLI) | payer MEDICAID, SELFPAY ==
--- NOTE | 2025-02-02 10:31 | XR_ITS ---
FINAL REPORT CLINICAL HISTORY: right ankle fx COMPARISON: 01/28/2025 FINDINGS: RIGHT ANKLE 3 views of the right ankle were obtained. Again seen is a spiral fracture of the lateral malleolus. There is no significant callus formation. No new osseous abnormality is seen. The mortise is intact. Visualized joint spaces are normally aligned. Soft tissue edema has minimally improved. IMPRESSION: Spiral fracture of the lateral malleolus without significant callus formation. Reviewed, Interpreted and Dictated by Reyna Arias MD Transcribed by Berna Gerard Authenticated and [facility]
== END 2025-02-02 23:59 | disposition home or self-care (01) ==
LOC: RAD 10:31
PROVIDERS: Visit Provider Physician Assistant
DX: S82.61XA Displaced fracture of lateral malleolus of right fibula, initial encounter for closed fracture (principal); X58.XXXA Exposure to other specified factors, initial encounter
CPT/HCPCS: 73610

== ENCOUNTER 2025-02-16 11:06 | Outpatient (CLI) | payer MEDICAID, SELFPAY ==
--- NOTE | 2025-02-16 11:07 | XR_ITS ---
FINAL REPORT CLINICAL HISTORY: right ankle fx COMPARISON: 02/02/2025 FINDINGS: AP, oblique, and lateral views of the right ankle were obtained. There has been some interval healing of the lateral malleolar fracture. No new osseous abnormality identified. The ankle mortise is intact. There is improved soft tissue edema. IMPRESSION: Lateral malleolar fracture again noted with interval healing. Reviewed, Interpreted and Dictated by Reyna Arias MD Transcribed by Terrie Caicedo Authenticated and [facility]
--- OUTSIDE RECORDS SUMMARY | 2025-02-16 11:08 | XMS_ITS | Encounter Summary ---
Author Organization [employer] ([place], [place], [place], [place]) Address [address] [place] [address] Care Team Providers Care Funeral Limousine Driver Name Role Phone Unavailable Primary Care Provider Unavailabl e Reason for Referral * Consultation (Routine) - Closed Specialty Diagnoses / Procedures Referred By Contlizzie t Referred To Contact Neurology Diagnoses Epilepsy, unspecified, intractable, without status epilepticus (HCC) Precious Edward [address] [place] [address] Phone: tel: Maribel Sena MD [address] [facility] [address] [place] [address] Phone: tel: fax: Referral ID Status Reason Start Date Expiration Date V isits Requested Visits Authorized [id number] Closed Specialty Services Required 08/05/2024 08/05/2025 1 1 Encounter Details Date Type Department Care Team (Late st Contact Info) Description 08/05/2024 Outside Orders [facility] Neurology [address] [facility] [address] [place] [phone] Precious Edward [address] [place] [address] Epilepsy, unspecified, intractable, without status [...]
--- OUTSIDE RECORDS SUMMARY | 2025-02-16 11:08 | XMS_ITS | Clinical Summary ---
Author Organization [employer] ([place], [place], [place], [place]) Address [address] [place] [address] Care Team Providers Care Machine Hose Cutter Name Role Phone Unavailable Primary Care Provider [...] COVID-19 VACCINE ( - 2023-2 5 season) 2025 Influenza Vaccine (#1) 2025 Pneumococcal Vaccine: 0-49 Years Aged Out No longer eligible based on patient's age to complete this topic Insurance [facility]
--- OUTSIDE RECORDS SUMMARY | 2025-02-16 11:08 | XMS_ITS | Referral Summary ---
Author Organization [employer] ([place], [place], [place], [place]) Address [address] [place] [address] Care Team Providers Care Rn Mobile Name Role Phone Unavailable Primary Care Provider Unavailabl e Social History Tobacco Use Types Packs/Day Years Used Date Smoking Tobacco: Never Assessed Comments Unknown Sex and Gender Information Value Date Recorded Sex Assigned at Not on file Legal Sex Female 3:01 PM CDT Gender Identity Not on file Sexual Orientation Not on file Plan of Treatment Not on file Insurance [facility]
== END 2025-02-16 23:59 | disposition home or self-care (01) ==
LOC: RAD 11:07
PROVIDERS: Visit Provider Physician Assistant
DX: S82.61XD Displaced fracture of lateral malleolus of right fibula, subsequent encounter for closed fracture with routine healing (principal); X58.XXXD Exposure to other specified factors, subsequent encounter
CPT/HCPCS: 73610

== ENCOUNTER 2025-02-26 13:54 | Outpatient (CLI) | payer MEDICAID, SELFPAY ==
--- NOTE | 2025-02-26 13:57 | MM_ITS ---
PROCEDURE INFORMATION: Exam: US Left Breast, Complete MG Bilateral Diagnostic Breast Tomosynthesis Exam date and time: 02/26/2025 2:04 PM Age: 29 years old Clinical indication: Left breast discharge; Nipple discharge TECHNIQUE: Imaging protocol: Complete ultrasound of all four quadrants of the left breast and the retroareolar regions, including ultrasound of the axilla when performed. Bilateral Diagnostic tomosynthesis and 2D mammography including computer-aided detection (CAD) when performed. Unilateral or bilateral exam. COMPARISON: MG MM DIG MAMM BI DX W/CAD 02/26/2025 1:56 PM FINDINGS: MAMMOGRAPHY: Breast composition: There are scattered areas of fibroglandular density. Breast mammogram findings: No stellate mass, architectural distortion, or suspicious microcalcifications to suggest malignancy. No skin thickening or axillary adenopathy. ULTRASOUND: Breast ultrasound findings: Ultrasound of the left breast is performed. There is no suspicious mass, shadowing, or distortion. Benign ductal dilatation is seen in the left retroareolar aspect with no evidence of intraductal mass. Ducts measure up to 0.4 cm in caliber. A benign cyst is seen in the 2 o'clock axis, 1 cm from the nipple measuring 0 point 9 x 0.9 x 0.4 cm. IMPRESSION: No mammographic or sonographic evidence of malignancy. No abnormality to explain the cause of the patient's nipple discharge. Continued clinical monitoring is recommended. If there is spontaneous, unilateral, bloody or clear nipple discharge, further evaluation with breast MRI or surgical consultation would be recommended. ASSESSMENT: BI-RADS Category 2: Benign.
--- OUTSIDE RECORDS SUMMARY | 2025-02-26 13:59 | XMS_ITS | Clinical Summary ---
Author Organization [employer] ([place], [place], [place], [place]) Address [address] [place] [address] Care Team Providers Care Courtroom Deputy Name Role Phone Unavailable Primary Care Provider [...] patient's age to complete this topic Insurance [facility]
--- OUTSIDE RECORDS SUMMARY | 2025-02-26 13:59 | XMS_ITS | Encounter Summary ---
Author Organization [employer] ([place], [place], [place], [place]) Address [address] [place] [address] Care Team Providers Care Field Rep Name Role Phone Unavailable Primary Care Provider Unavailabl e Reason for Referral * Consultation (Routine) - Closed Specialty Diagnoses / Procedures Referred By Contlizzie t Referred To Contact Neurology Diagnoses Epilepsy, unspecified, intractable, without status epilepticus (HCC) Precious Edward [address] [place] [address] Phone: tel: Maribel Sena MD [address] [facility] [address] [place] [address] Phone: tel: fax: Referral ID Status Reason Start Date Expiration Date V isits Requested Visits Authorized [id number] Closed Specialty Services Required 08/05/2024 08/05/2025 1 1 Encounter Details Date Type Department Care Team (Late st Contact Info) Description 08/05/2024 Outside Orders [facility] Neurology [address] [facility] [address] [place] [phone] Precious Edward [address] [place] [address] Epilepsy, unspecified, intractable, without status [...]
--- OUTSIDE RECORDS SUMMARY | 2025-02-26 13:59 | XMS_ITS | Referral Summary ---
Author Organization [employer] ([place], [place], [place], [place]) Address [address] [place] [address] Care Team Providers Care Client Integration Manager Name Role Phone Unavailable Primary Care Provider Unavailabl e Social History Tobacco Use Types Packs/Day Years Used Date Smoking Tobacco: Never Assessed Comments Unknown Sex and Gender Information Value Date Recorded Sex Assigned at Not on file Legal Sex Female 3:01 PM CDT Gender Identity Not on file Sexual Orientation Not on file Plan of Treatment Not on file Insurance [facility]
== END 2025-02-26 23:59 | disposition home or self-care (01) ==
LOC: RAD 13:55
PROVIDERS: PCP Nurse Practitioner Family; Visit Provider Nurse Practitioner Family
DX: N64.52 Nipple discharge (principal); N60.02 Solitary cyst of left breast; R92.323 Mammographic fibroglandular density, bilateral breasts
CPT/HCPCS: 76641; 77062; 77066; G0279

== ENCOUNTER 2025-03-09 13:52 | Outpatient (CLI) | payer MEDICAID, SELFPAY ==
--- NOTE | 2025-03-09 13:52 | XR_ITS ---
FINAL REPORT CLINICAL HISTORY: follow up for bone healing fx jan 28 COMPARISON: 02/16/2025 FINDINGS: RIGHT ANKLE 3 views of the right ankle were obtained. There is an oblique, mildly displaced fracture of the lateral malleolus. The mortise is intact. Visualized joint spaces are normally aligned. There is moderate soft tissue edema. IMPRESSION: Oblique, mildly displaced fracture of the lateral malleolus. Reviewed, Interpreted and Dictated by Jean Cool MD Transcribed by Berna Gerard Authenticated and [facility]
--- OUTSIDE RECORDS SUMMARY | 2025-03-09 14:45 | XMS_ITS | Clinical Summary ---
Author Organization [employer] ([place], [place], [place], [place]) Address [address] [place] [address] Care Team Providers Care Pumper Helper Name Role Phone Unavailable Primary Care Provider [...] patient's age to complete this topic Insurance [facility]
--- OUTSIDE RECORDS SUMMARY | 2025-03-09 14:45 | XMS_ITS | Encounter Summary ---
Author Organization [employer] ([place], [place], [place], [place]) Address [address] [place] [address] Care Team Providers Care Title I Math Tutor Name Role Phone Unavailable Primary Care Provider Unavailabl e Reason for Referral * Consultation (Routine) - Closed Specialty Diagnoses / Procedures Referred By Contlizzie t Referred To Contact Neurology Diagnoses Epilepsy, unspecified, intractable, without status epilepticus (HCC) Precious Edward [address] [place] [address] Phone: tel: Maribel Sena MD [address] [facility] [address] [place] [address] Phone: tel: fax: Referral ID Status Reason Start Date Expiration Date V isits Requested Visits Authorized [id number] Closed Specialty Services Required 08/05/2024 08/05/2025 1 1 Encounter Details Date Type Department Care Team (Late st Contact Info) Description 08/05/2024 Outside Orders [facility] Neurology [address] [facility] [address] [place] [phone] Precious Edward [address] [place] [address] Epilepsy, unspecified, intractable, without status [...]
--- OUTSIDE RECORDS SUMMARY | 2025-03-09 14:45 | XMS_ITS | Referral Summary ---
Author Organization [employer] ([place], [place], [place], [place]) Address [address] [place] [address] Care Team Providers Care Steam Meter Reader Name Role Phone Unavailable Primary Care Provider Unavailabl e Social History Tobacco Use Types Packs/Day Years Used Date Smoking Tobacco: Never Assessed Comments Unknown Sex and Gender Information Value Date Recorded Sex Assigned at Not on file Legal Sex Female 3:01 PM CDT Gender Identity Not on file Sexual Orientation Not on file Plan of Treatment Not on file Insurance [facility]
== END 2025-03-09 23:59 | disposition home or self-care (01) ==
LOC: RAD 13:52
PROVIDERS: Visit Provider Physician Assistant
DX: S82.61XD Displaced fracture of lateral malleolus of right fibula, subsequent encounter for closed fracture with routine healing (principal); X58.XXXD Exposure to other specified factors, subsequent encounter
CPT/HCPCS: 73610

== ENCOUNTER 2025-03-13 15:04 | Outpatient (CLI) | payer MEDICAID, SELFPAY ==
--- OUTSIDE RECORDS SUMMARY | 2025-03-13 15:06 | XMS_ITS | Data Portability ---
Author Organization [facility] [email or web address] [facility] Address [address] [place] [address] Assessment Encounter Date Assessment Date Assessment LastModified [...] or scraping, cervical or vaginal 2023 024 [place] [facility], [address] [place] [address], [place], [address], 4 15:08:16 test, urine [address], [place], [address], 4 10:30:47 Referral neurologist referral - WHITNEY 2023 024 DARCIE Ceron MD, [address] [place] [address] [address], [place], [address], 4 11:40:31 gynecologis t referral - first avail. pt needs pap and wants to see why shes not getting 2023 024 [email or web address] Sherri Lanier DO, [address], [place], [address], 11:08:24 Procedures None recorded. Surgeries None recorded. Imaging None recorded. Medication Orders valproic acid 250 mg capsule 2023 025 [employer], [address] [place] [address], [id number], 13:37:30 sertraline 25 mg tablet 2023 024 [facility], [address] [place] [address], [id number], 17:38:45 amoxicillin 875 mg-potassiu m clavulanate 125 mg tablet 2023 024 [facility], [address] [place] [address], [id number], 11:35:13 Patient Targets Encounter Date Encounter Id Patient Goals Patient Target Last Modified By Organization Details Last Modified Time 02/07/2024 [id number] Continue care with PCP. Apply for SNAP benefits with [employer]BS office. [email or web address] Not available 02/07/2024 08:38:57 Patient Instructions Encounter Date Encounter Id Patient Instructions Last Modified By Organization Details Last Modified Time 02/07/2024 [id number] Patient was referred to me by PCP [...] for follow up if needed. Sue Lopez [facility] Not available 02/07/2024 08:41:55 Reason for Referral Art Therapist Referral for Fe male infertility first avail. pt needs pap and wants to see why shes not getting Referring Physician: Neetu Templeton, Family Medicine, Encounter Date: 01/25/2024 Neurologist Referral for Sei zure disorder WHITNEY Referring Physician: Neetu Templeton Family [facility], Encounter Date: 04/18/2024 Results Created Date Observation Date Name Description Value Unit Range Abnormal Flag Note LastModifiedBy Organization Detail LastModifiedTime 01/25/2001/25/2024 pregn nasrin test, urine HCG negati ve Not Available [address], [address], 01/25/2024 10:20:21 04/08/20 24 04/10/2024 IGP,C TNGRF XCOBA SHPV1 6/18A LLPTH chlamydia, nuc. acid amp Negati ve negati ve Not Available [facility] ([facility]) [address] [facility], [place], [address], 04/16/2024 15:08:16 04/08/20 24 04/10/2024 IGP,C TNGRF XCOBA SHPV1 6/18A LLPTH gonococcus, nuc. acid amp Negati ve negati ve Not Available [facility] ([facility]) [address] [facility], [place], [address], 04/16/2024 15:08:16 04/08/20 24 04/16/2024 IGP,C TNGRF XCOBA SHPV1 6/18A LLPTH diagnosis: Commen t NEGAT PEDRO LUIS FOR INTRA EPITH ELIAL LESIO N OR MALCRISTHIAN ARAIZA . Not Available [facility] ([facility]) [address] [facility], [place], [address], 04/16/2024 15:08:16 04/08/20 24 04/16/2024 IGP,C TNGRF XCOBA SHPV1 6/18A LLPTH specimen adequacy: Commen t Satis facto ry for evalu ation . No endoc ervic al compo nent is ident ified . Not Available [facility] ([facility]) [address] [facility], [place], [address], 04/16/2024 15:08:16 04/08/20 24 04/16/2024 IGP,C TNGRF XCOBA SHPV1 6/18A LLPTH clinician provided ICD10: Yesika morocho Z01.4 19 Not Available [facility] ([facility]) [address] [facility], [place], [address], 04/16/2024 15:08:16 04/08/20 24 04/16/2024 IGP,C TNGRF XCOBA SHPV1 6/18A LLPTH performed by: Yesika Lawson ams, Ria morocho (ASCP ) Not Available [facility] ([facility]) [address] [facility], [place], [address], 04/16/2024 15:08:16 04/08/20 24 04/16/2024 IGP,C TNGRF XCOBA SHPV1 6/18A LLPTH . . Not Available [facility] ([facility]) [address] [facility], [place], [address], 04/16/2024 15:08:16 04/08/20 24 04/16/2024 IGP,C TNGRF [...] ts do occur . Not Available [facility] ([facility]) [address] [facility], [place], [address], 04/16/2024 15:08:16 04/08/20 24 04/16/2024 IGP,C TNGRF XCOBA SHPV1 6/18A LLPTH test methodology: Yesika morocho This liqui d based ThinP rep(R ) pap test was scree wilber with the use of an image guide d syste m. Not Available [facility] ([facility]) [address] [facility], [place], [address], 04/16/2024 15:08:16 04/08/20 24 04/16/2024 IGP,C TNGRF XCOBA SHPV1 6/18A LLPTH . Commen t The HPV DNA refle x crite dane were not met with this speci men resul t there fore, no HPV testi ng was perfo rmed. Not Available [facility] ([facility]) [address], [place], [address], 04/16/2024 15:08:16 04/06/20 24 04/06/2024 CT, head + brain , w/o contr ast No observ ation record ed. [address], [place], [address], 07/15/2024 15:16:56 04/06/20 24 04/06/2024 XR, chest , 1 view No observ ation record ed. [address], [place], [address], 07/15/2024 15:17:24 04/06/20 24 04/06/2024 elect rocar diogr am No observ ation record ed. [address], [place], [address], 07/15/2024 15:17:51 04/14/20 24 04/14/2024 XR, chest , 1 view No observ ation record ed. [address], [place], [address], 07/15/2024 15:18:10 04/15/20 24 04/14/2024 elect rocar diogr am No observ ation record ed. [address], [place], [address], 07/15/2024 15:18:32 05/22/19 25 05/22/2024 MRI, brain + brain stem, w/o contr ast No observ ation record ed. [address] Registration [address] [facility] [place], [address], 07/15/2024 15:20:08 06/02/19 25 05/22/2024 elect rocar diogr am No observ ation record ed. [address] Registration [address] [facility] [place], [address], 07/15/2024 15:20:40 06/07/19 25 05/22/2024 casper nuous EEG monit orienmanuel , briseida ssion al compo nent; 12-26 hrs, with VEEG (PROC ) No observ ation record ed. [address] Registration [address] [facility] [place], [address], 07/15/2024 15:21:18 06/08/19 25 06/05/2024 elect rocar diogr am No observ ation record ed. [address], [address], 07/15/2024 15:21:48 07/19/19 25 07/18/2024 elect rocar diogr am No observ ation record ed. [address], [address], 07/19/2024 08:58:08 07/21/19 25 07/19/2024 casper nuous EEG monit orienmanuel , briseida ssion al compo nent; 12-26 hrs, with VEEG (PROC ) No observ ation record ed. [address] (Registration ) [address] [place] [address] [place], [address], 07/21/2024 08:53:44 Result Notes None recorded. Problems Name Problem SNOMED Code Status Onset Date Resolution Date Notes Provider Name and Address Organization Details Recorded Time Acute pharyngi tis 228159800 Completed 201607/15/2016 Problem Code: J02.8; Problem Code Type: ICD-10; Not Available [facility] 2 22:10:34 Acute laryngop haryngit is 21374326 Completed 201605/30/2016 Problem Code: J06.0; Problem Code Type: ICD-10; Not Available [facility] 2 22:10:34 Acute upper respirat ory infectio n of multiple sites Completed 201605/30/2016 Problem Code: 465.8; Problem Code Type: ICD-9; Not Available [facility] 2 22:10:38 Cough 69516781 Completed 201605/30/2016 Problem Code: R05; Problem Code Type: ICD-10; Not Available [facility] 2 22:10:38 Acute sinusiti s 17010554 Completed 201607/27/2016 Problem Code: J01.90; Problem Code Type: ICD-10; Not Available [facility] 2 22:10:33 Infectiv e pneumoni a 031732850 Completed 201610/15/2016 Problem Code: J16.8; Problem Code Type: ICD-10; Not Available [facility] 2 22:10:34 Pneumoni a 496271446 Completed 201610/15/2016 Problem Code: 483.8; Problem Code Type: ICD-9; Not Available [facility] 2 22:10:38 Allergic rhinitis caused by pollen 40835865 Completed 201610/24/2016 Problem Code: J30.1; Problem Code Type: ICD-10; Not Available [facility] 2 22:10:34 Wheezing 36270462 Completed 201610/24/2016 Problem Code: R06.2; Problem Code Type: ICD-10; Not Available [facility] 2 22:10:35 Constipa tion 26871306 Completed 201612/05/2019 Not Available [facility] 2 22:10:34 Seasonal allergic rhinitis 487842743 Completed 201612/15/2016 Problem Code: J30.2; Problem Code Type: ICD-10; Not Available [facility] 22:10:37 Allergic rhinitis caused by pollen 80195554 Completed 201612/15/2016 Problem Code: 477.0; Problem Code Type: ICD-9; Not Available [facility] 22:10:39 Acute maxillar y sinusiti s 91046518 Completed 201604/14/2017 Problem Code: J01.01; Problem Code Type: ICD-10; Not Available [facility] 22:10:33 Cough 92184180 Completed 201602/27/2017 Problem Code: R05; Problem Code Type: ICD-10; Not Available [facility] 22:10:35 Disorder of upper respirat ory system 559267576 Completed 201708/20/2017 Problem Code: J06.9; Problem Code Type: ICD-10; Not Available [facility] 22:10:37 Acute upper respirat ory infectio n 33086008 Completed 201708/20/2017 Problem Code: 465.9; Problem Code Type: ICD-9; Not Available [facility] 22:10:40 Acute sinusiti s 32544459 Completed 201702/19/2018 Problem Code: J01.90; Problem Code Type: ICD-10; Not Available [facility] 22:10:36 Disorder of tongue 45332429 Completed 201705/26/2018 Problem Code: K14.9; Problem Code Type: ICD-10; Not Available [facility] 22:10:34 Glossody tanmay 78603826 Completed 201705/26/2018 Problem Code: 529.6; Problem Code Type: ICD-9; Not Available [facility] 22:10:39 Acute suppurat pedro luis otitis media 757702731 Active 2018 Not Available [facility] 22:10:33 Acute laryngop haryngit is 32030631 Completed 201804/11/2019 Problem Code: J06.0; Problem Code Type: ICD-10; Not Available [facility] 2 22:10:34 Acute laryngop haryngit is 73376873 Active 2018 Problem Code: J06.0; Problem Code Type: ICD-10; Not Available [facility] 2 22:10:34 Acute sinusiti s 74434621 Active 2018 Problem Code: J01.90; Problem Code Type: ICD-10; Not Available [facility] 2 22:10:33 Acute maxillar y sinusiti s 75413498 Active 2018 Problem Code: J01.00; Problem Code Type: ICD-10; Not Available [facility] 2 22:10:33 Cough 55183978 Active 2018 Problem Code: R05; Problem Code Type: ICD-10; Not Available [facility] 2 22:10:35 Moderate recurren t major depressi on 82972594 Active 2019 Problem Code: F33.1; Problem Code Type: ICD-10; Not Available [facility] 2 22:10:33 Generali zed anxiety disorder 81112008 Active 2019 Problem Code: F41.1; Problem Code Type: ICD-10; Not Available [facility] 2 22:10:33 Recurren t major depressi ve episodes , moderate 569770014 Active 2019 Problem Code: 296.32; Problem Code Type: ICD-9; Not Available [facility] 2 22:10:39 Acute lymphade nitis of face, head and neck Active 2019 Problem Code: L04.0; Problem Code Type: ICD-10; Not Available [facility] 2 22:10:35 General examinat ion of patient Active 2019 Not Available [facility] 2 22:10:36 Acute sinusiti s 99459396 Completed 201909/20/2021 Problem Code: J01.90; Problem Code Type: ICD-10; Not Available [facility] 2 22:10:34 Uses combined oral contrace ption 716698427 Active 2019 Problem Code: Z30.011; Problem Code Type: ICD-10; Not Available [facility] 2 22:10:37 Headache 98556643 Completed 201909/20/2021 Problem Code: R51; Problem Code Type: ICD-10; Not Available [facility] 2 22:10:36 Amenorrh ea 07439710 Active 2020 Problem Code: N91.2; Problem Code Type: ICD-10; Not Available [facility] 2 22:10:35 Increase d frequenc y of urinatio n 417348927 Active 2020 Problem Code: R35.0; Problem Code Type: ICD-10; Not Available [facility] 22:10:35 Syphilis test finding 773717791 Active 2020 Problem Code: Z11.3; Problem Code Type: ICD-10; Not Available [facility] 2 22:10:36 Irregula r periods 80371612 Active 2020 Not Available [facility] 2 22:10:35 Body mass index 30+ - obesity 959830775 Active 2021 Problem Code: Z68.36; Problem Code Type: ICD-10; Not Available [facility] 2 22:10:37 Purpuric rash 954620225 Active [address], [address] , [employer] 4 14:51:12 Seizure 27691231 Active [address], [address] , [employer] 4 14:51:40 Problem Notes None recorded. Procedures Surgical History Date Name Laterality Status Provider Name and Address Organization Details Recorded Time 04/08/2025 Date of Last Pap Smear completed AROLDO BRIZUELA [employer] 04/18/2024 10:38:15 Imaging Results None recorded. Procedure [...] Not Available Not Available No t Available [employer] COVID-19 Antigen Home Test kit USE DIRECTED 12/01 completed Not Available Not Available Not Available Vitals Date Recorded Body height Body mass index (BMI) Body weight Heart rate Oxygen saturation Oxygen saturation in Arterial blood by Pulse oximetry Systolic And Diastolic Provider Name and Address Organization Details Last Updated DateTime 5 160.02 cm 38 kg/m2 75286.9 2 g 79 /min 99 % 99 % 121/87 mm[Hg] AROLDO BRIZUELA [facility] [employer] [facility]. 5 14:14:04 Date Recorded Body height Body mass index (BMI) Body weight Heart rate Oxygen saturation Oxygen saturation in Arterial blood by Pulse oximetry Systolic And Diastolic Provider Name and Address Organization Details Last Updated DateTime 4 160.02 cm 37.6 kg/m2 45259.5 8 g 79 /min 98 % 98 % 114/76 mm[Hg] Gayle Georgie [employer] 4 10:20:06 Date Recorded Body height Body mass index (BMI) Body weight Heart rate Oxygen saturation Oxygen saturation in Arterial blood by Pulse oximetry Systolic And Diastolic Provider Name and Address Organization Details Last Updated DateTime 4 160.02 cm 37.3 kg/m2 67574.5 5 g 77 /min 96 % 96 % 110/72 mm[Hg] AROLDO BRIZUELA [employer] 4 13:13:38 Date Recorded Body height Body mass index (BMI) Body weight Heart rate Oxygen saturation Oxygen saturation in Arterial blood by Pulse oximetry Body temperature Systolic And Diastolic Provider Name and Address Organization Details Last Updated DateTime 4 160.02 cm 37.6 kg/m2 95109.9 8 g 80 /min 98 % 98 % 97.8 [degF] 120/77 mm[Hg] Angela Noemi [employer]. 4 13:50:38 Social History Question Answer Notes LastModified by Organizat ion Details LastModified Time Tobacco Smoking Status Never Smoker Salina bhatt [employer] 01/09/2023 09:37:20 Do You Have An Advance Directive? No [email or web address] Information n ot available 09/12/2023 Is Your [...] Or Recreational Drugs Have You Used? Marijuana [email or web address] Information not available 09/12/2023 Who Is Your Employer? [employer] [email or web address] Information not available 09/12/2023 Have There Been Any Changes To Your Family Or Social Situation? No Information no t available 12/01/2022 Are There Any Guns Present In Your Home? No Information not available 05/29/2024 Do You Have A Medical Power Of [employer]? No [email or web address] Information not available 09/12/2023 What Was The Date Of Your Most Recent Tobacco Screening? 05/29/2024 Information not available 05/29/2024 What Is Your Relationship Status? Single Information not available 12/01/2022 Do You Use Your Seat Belt Or Car Seat Routinely? Yes Information not available 12/01/2022 Are You Sexually Active? Yes Information not available 04/07/2024 Do You Have Smoke And Carbon Monoxide Detectors In Your Home? Yes Information not available 12/01/2022 Are You Passively Exposed To Smoke? Yes Information no t available 05/29/2024 Are There Any Smokers In Your House? Yes [email or web address] Information not available 05/29/2024 Do You Participate [...] 12/01/2022 Are You Currently In School? No [email or web address] Information not available 09/12/2023 Do You Have Any Dietary Restrictions? No Information not available 04/18/2024 Sex: Female Functional Status Question Answer Note LastModified by Organizat ion Details LastModified Time Do you use any illicit or recreational drugs? Yes [email or web address] Information not available 09/12/2023 Do you or have you ever used any other forms of tobacco or nicotine? No [email or web address] Information not available 09/12/2023 What is your level of alcohol consumption? None Information not available 12/01/2022 Are you currently employed? Yes [email or web address] Information not available 09/12/2023 Do you have transportation difficulties? No Information not available 12/01/2022 Are you able to walk independently without assistance or assistive devices? [email or web address] Information not available 12/01/2022 Do you have difficulty doing errands alone? No Information not available 12/01/2022 Are you able to care for yourself independently? Yes Information not available 12/01/2022 Do you have difficulty dressing, bathing, grooming, or toileting? No Information not available 12/01/2022 Mental Status Question Answer Note LastModified by Organizat ion Details LastModified Time Do you feel stressed (tense, restless, nervous, or anxious, or unable to sleep at night)? [id number] Information not available 04/18/2024 Do you have difficulty concentrating, remembering or making decisions? No Information no t available 12/01/2022 Family History Relationship Description Onset Age of this Age Resolved Age Notes LastModified by Organization Details LastModified Time Unspecified Relation Family history of drug abuse Relati ve: ''; [email or web address] Not available 09/12/2023 14:22:21 Unspecified Relation Family history of diabetes mellitus type 2 Relati ve: ''; [email or web address] Not available 09/12/2023 14:22:21 Unspecified Relation Family history of Hypertension Relati ve: ''; [email or web address] Not available 09/12/2023 14:22:21 Unspecified Relation Family history of alcoholism Relati ve: ''; [email or web address] Not available 09/12/2023 14:22:21 Mother Anxiety disorder [id number] Not available 05/2023 14:22:21 Mother Depressive disorder [email or web address] Not available 05/2023 14:22:21 Mother Arthritis [email or web address] Not avai lable 09/12/2023 14:22:21 Mother Hypertensive disorder [email or web address] Not available 05/2023 14:22:21 Sister Hypercholest erolemia [email or web address] Not available 05/2023 14:22:21 Sister Anxiety disorder [email or web address] Not available 05/2023 14:22:21 Sister Depressive disorder [email or web address] Not available 05/2023 14:22:21 Sister Hypertensive disorder [email or web address] Not available 05/2023 14:22:21 Father Hypercholest erolemia [email or web address] Not available 05/2023 14:22:21 Father Harmful pattern of use of alcohol [id number] Not available 05/2023 14:22:21 Father Arthritis [email or web address] Not avai lable 09/12/2023 14:22:21 Father Hypertensive disorder [email or web address] Not available 05/2023 14:22:21 Notes:*Procedure Description : [...] Time Hib, unspecified formulation 8 [facility] [employer]. 04/07/2024 13:01:51 Hib, unspecified formulation 0 completed AROLDOTAQUERIA BRIZUELA [employer], [employer] 04/07/2024 13:01:51 Hib, unspecified formulation 8 completed AROLDOTAQUERIA BRIZUELA null, [employer] 04/07/2024 13:01:51 Hib-Hep B 9 completed AROLDO BRIZUELA null, [employer] 04/07/2024 13:01:51 IPV 8 completed AROLDOTAQUERIA BRIZUELA null, [employer] 04/07/2024 13:01:51 IPV 0 completed [employer], [employer] 04/07/2024 13:01:51 IPV 2 completed [employer], [employer] 04/07/2024 13:01:51 IPV 8 completed [employer], [employer] 04/07/2024 13:01:51 MMR 0 completed [employer], [employer]. 04/07/2024 13:01:51 MMR 2 completed [employer], [employer]. 04/07/2024 13:01:51 COVID-19, mRNA, LNP-S, PF, 100 mcg/0.5mL dose or 50 mcg/0.25mL dose 1 completed [employer], [employer] 04/07/2024 13:01:51 COVID-19 vaccine, vector-nr, rS-Ad26, PF, 0.5 mL 1 completed AROLDO Deminos, [employer]. 04/07/2024 13:01:51 Tdap 0 completed [employer], [employer] 04/07/2024 13:01:51 varicella 2 completed [employer], [employer] 04/07/2024 13:01:51 HPV, quadrivalent 0 completed [employer], [employer] 04/07/2024 13:01:51 Hep B, adolescent or pediatric 8 completed AROLDO bhatt, [employer] 04/07/2024 13:01:51 DTaP, unspecified formulation 9 completed AROLDO bhatt, [employer] 04/07/2024 13:01:51 DTaP, unspecified formulation 3 completed AROLDO bhatt, [employer] 04/07/2024 13:01:51 DTaP, unspecified formulation 8 completed AROLDO BRIZUELA null, [employer] 04/07/2024 13:01:51 DTaP, unspecified formulation 0 completed AROLDO bhatt, [employer] 04/07/2024 13:01:51 DTaP, unspecified formulation 8 completed AROLDO bhatt, [employer] 04/07/2024 13:01:52 meningococcal MCV4, unspecified formulation 0 completed AROLDO bhatt, [employer] 04/07/2024 13:01:52 Past Encounters Encounter ID Performer Location Encounter Start Date Encounter Closed Date Diagnosis/Indication Diagnosis SNOMED-CT Code Diagnosis ICD10 Code Diagnosis IMO Codes Diagnosis Note [id number] Neetu Templeton[address] [address] 2022 11:29:07 2022 12:03:41 Cyst of skin 103455799 L72.9 Moderate r ecurrent major depression 91752919 F33.1 Allergic rhinitis 258448 04 J30.9 Body mass index 30+ - obesity 127265713 Z68.37 [id number] [address] 12/01/2022 13:07:36 12/01/2022 13:43:25 Major depressive disorder 112133891 F32.9 Gastroesop hageal reflux disease without esophagitis 216505744 K21.9 Body mass index 30+ - obesity 289948086 Z68.37 [id number] [place] [address] 0 01/09/2023 09:20:52 01/09/2023 10:31:47 Pain in throat 055484781 R07.0 Acute otitis media 87425 03 H66.90 Body mass index 30+ - obesity 104735721 Z68.37 [id number] Neetu Templeton [place] [address] 0 05/17/2023 08:46:32 05/17/2023 09:32:00 Major depressive disorder 519350188 F32.9 Gastroesop hageal reflux disease without esophagitis 743942072 K21.9 Pain in throat 290582137 R07.0 Streptococ chika sore throat 64486191 J02.0 Body mass index 30+ - obesity 499326386 Z68.37 [id number] [place] [address] 0 07/17/2023 14:12:51 07/17/2023 14:25:17 [id number] Neetu Templeton [place] [address] 0 07/31/2023 13:26:44 07/31/2023 14:17:25 Fever 460567044 R50.9 Screening for malignant neoplasm of cervix declined 700390903 Z53.20 Influenza caused by Influenza B virus 15833794 J10.1 COVID-19 029329640 U07.1 Body mass index 30+ - obesity 218071514 Z68.37 [id number] [place] [address] 09/12/2023 14:15:11 09/12/2023 15:14:50 Purpuric rash 271376594 D69.2 Seizure 94021016 R56.9 [id number] Neetu Templeton [place] [address] 0 01/25/2024 09:51:11 01/25/2024 10:46:32 Amenorrhea 91890136 N91.2 Acute sinusitis 57250972 J01.90 Female infertility 43714 08 N97.9 Body mass index 30+ - obesity 798856267 Z68.37 [id number] Neetu Templeton [place] [address] 0 02/07/2024 08:37:03 02/07/2024 08:43:55 Finding related to health literacy 114404061 Z55.6 Food insecurity 09765653 3 Z59.41 [id number] Miguel Ayoub CNM [address] 7 04/07/2024 13:01:06 04/07/2024 15:22:22 Gynecologic examination 03213504 Z01.419 Breast lump [id number] N63 .0 Pt to assess this again in 4-6 wks, if still present, pt to RTC for US of this [id number] Neetu Templeton [place] [address] 0 04/18/2024 13:28:10 04/18/2024 14:35:39 Major depressive disorder 084375886 F32.9 Seizure disorder 8154234 02 G40.909 Body mass index 30+ - obesity 880473462 Z68.37 [id number] Miguel Ayoub CNM [address],[place] [address] 05/29/2024 14:00:38 05/29/2024 14:38:24 Fibrocystic changes of bilateral breasts [id number] N60.11 N60.12 Discussed appears to be fibrocysti [...] Name 2022 1 *SELF PAY* Elliot Yap 01/08/2025 1 [employer] [place] (MEDICA[place] H[place] Ryland Yap [id number] Ly Yap 01/06/2025 [place] - [facility] WRAP BILLING (MEDICAID) Ryland Yap [id number] Ly Yap Notes Date Note Type Note Provider Name and Address Organization Details Recorded Time 01/25/2024 text/html pt here today with c/o amenorrhea and breast tenderness x2 months. [...] increase fluids. return for worsening symptoms. Neetu Templeton, CHIP M[employer]ER [address] [facility], [place], [address], [employer] 01/25/2024 10:44:57 04/07/2024 text/html Annual GYNReport ed by PatientROS as noted in the HPI Pt here today for annual exam as a new pt. Pt [...] as pt desires. Miguel Ayoub CNM [address] [place], [address], [employer]. 04/07/2024 15:17:38 04/18/2024 text/html pt here today for an ER f/u. pt states that on [...] pt voiced understanding. Neetu Templeton APRN [address] [place], [address], [employer]. 04/18/2024 15:29:10 05/29/2024 text/html ROS as noted in the HPI Pt scheduled today with c/o previous right breast mass. States it did get larger, but smaller now. Not fixed, it is movable. no pain or skin changes Miguel Ayoub CNM [address] [place], [address], [facility] [employer] 05/29/2024 14:30:34 OBGyn Episode No OBEpisode recorded.
--- OUTSIDE RECORDS SUMMARY | 2025-03-13 15:07 | XMS_ITS | Data Portability ---
Author Organization [facility] Address [address] [place] [address] Assessment No assessment recorded. Plan of Treatment Reminders Order Date Submit Date Provider Last Modified By Organization Details Last Modified Time Details Appointments None recorded. Lab test, urine 2024 025 [facility], [address] [place] [address], [place], [address], 11:31:53 Referral None recorded. Procedures None recorded. Surgeries None recorded. Imaging MAMMO, diagnostic, digital, bilateral 2024 025 [facility] (Scheduling), [address], [place], [address], 09:54:40 US, breast, unilateral, complete - left 2024 025 [facility] (Scheduling), [address], [place], [address], 09:55:59 Medication Orders nystatin 100,000 unit/mL oral suspension 2024 025 [employer], [address] [place] [address], [id number], 05:01:58 fluticasone propionate 50 mcg/actuati on nasal spray,suspe nsion 2024 025 [employer], [address] [place] [address] [place], [id number], 13:12:18 doxycycline hyclate 100 mg capsule 2024 025 [employer], [address] [place] [address], [id number], 14:39:12 Patient TargetsNo targets recorded. Patient Instructions Encounter Date Encounter Id Patient Instructions Last Modified By Organization Details Last Modified Time 01/08/2025 [id number] learning about healthy weight [facility] Not available 01/08/2025 11:31:53 body mass index: care instructions [facility] Not available 01/08/2025 11:31:53 Reason for Referral None Reported. Results Created Date Observation Date Name Description Value Unit Range Abnormal Flag Note LastModifiedBy Organization Detail LastModifiedTime 01/09/2001/08/2025 pregn nasrin test, urine HCG negati ve Not Available [address], [address], 01/08/2025 11:30:01 03/02/20 25 02/26/2025 MAMMO , diagn ostic , digit al, bilat eral No observ [facility]ion [facility] [address], [place], [address], 03/13/2025 09:21:15 03/02/2002/26/2025 US, breas t, unila teral , compl ete No observ ation record ed. [facility] [address], [place], [address], 03/13/2025 08:48:18 Result Notes None recorded. Problems Name Problem SNOMED Code Status Onset Date Resolution Date Notes Provider Name and Address Organization Details Recorded Time Mixed anxiety and depressive disorder 985840245 Active 025 SHAGGY [place] - [facility] 14:36:57 Problem Notes None recorded. Medical Equipment None Reported. Allergies No known drug allergies Medications Name Sig Start Date Stop Date Status Note LastModified by Organization Details LastModified Time nystatin 100,000 unit/mL oral suspension Take 5 mL 4 times a day by oral route for 14 days. 02/09 completed Not Available Not Available Not Available doxycycline hyclate 100 mg capsule TAKE 1 CAPSULE 2 TIMES EACH DAY FOR 7 DAYS 01/19 completed Not Available Not Available Not Available azithromyci n 250 mg tablet TAKE 2 TABLETS ON THE FIRST DAY, THEN TAKE 1 TABLET EACH DAY ON THE NEXT 4 DAYS. 01/08 completed Not Available Not Available Not Available prednisone 20 mg tablet TAKE 1 TABLET 2 TIMES EACH DAY FOR 5 DAYS 01/08 completed Not Available Not Available Not Available oxcarbazepi ne 300 mg tablet TAKE 1/2 TABLET 2 TIMES EACH DAY FOR 7 DAYS. THEN, TAKE 1 TABLET 2 TIMES EACH DAY FOR 7 DAYS. THEN, TAKE 1 AND 1/2 TABLET 2 TIMES EACH DAY. 01/08 completed Not Available Not Available Not Available valproic acid 250 mg capsule TAKE 1 CAPSULE EVERY 8 HOURS 01/08 completed Not Available Not Available Not Available oseltamivir 75 mg capsule TAKE 1 CAPSULE 2 TIMES EACH DAY FOR 4 DAYS 01/08 completed Not Available Not Available Not Available ibuprofen 200 mg tablet TAKE 1 TABLET 2 TIMES EACH DAY NEEDED FOR PAIN active Not Available Not Available No t Available sertraline 25 mg tablet TAKE 1 TABLET 1 TIME EACH DAY active Not Available Not Available No t Available oxcarbazepi ne 600 mg tablet TAKE 1 AND 1/2 TABLETS 2 TIMES EACH DAY active Not Available Not Available No t Available levetiracet am 750 mg tablet TAKE 1 TABLET BY MOUTH TWICE DAILY 01/08 completed Not Available Not Available Not Available ondansetron 4 mg disintegrat ing tablet PLACE 1 TABLET UNDER THE TONGUE AND ALLOW TO DISSOLVE EVERY 6 TO 8 HOURS NEEDED 01/08 completed Not Available Not Available Not Available fluticasone propionate 50 mcg/actuati on nasal spray,suspe nsion SPRAY 1 TIME IN EACH NOSTRIL 1 TIME EACH DAY active Not Available Not Available No t Available amoxicillin 875 mg-potassiu m clavulanate 125 mg tablet TAKE 1 TABLET EVERY 12 HOURS FOR 7 DAYS 01/08 completed Not Available Not Available Not Available oxycodone 5 mg tablet TAKE 1 TABLET EVERY 8 HOURS NEEDED FOR PAIN active Not Available Not Available No t Available Valtoco 20 mg/2 spray (10mg/0.1mL x2) nasal spray SPRAY 1 SPRAY IN ONE NOSTRIL NEEDED FOR SEIZURE, MAY REPEAT ONE TIME active Not Available Not Available No t Available Vitals Date Recorded Body height Body mass index (BMI) Body weight Body temperature Heart rate Oxygen saturation Oxygen saturation in Arterial blood by Pulse oximetry Respiratory rate Pain severity - 0-10 verbal numeric rating [Score] - Reported Systolic And Diastolic Provider Name and Address Organization Details Last Updated DateTime 160.02 cm 39.9 kg/m2 175818. 28 g 97 [degF] 98 /min 100 % 100 % 18 /min 0 130/78 mm[Hg] Marjan Ellison [place] - [facility] 11:14:03 Date Recorded Body height Body mass index (BMI) Body weight Heart rate Oxygen saturation Oxygen saturation in Arterial blood by Pulse oximetry Respiratory rate Body temperature Systolic And Diastolic Provider Name and Address Organization Details Last Updated DateTime 160.02 cm 39.1 kg/m2 628384. 91 g 90 /min 98 % 98 % 18 /min 97.8 [degF] 134/80 mm[Hg] Katherine Slade [place] - [facility] 14:35:56 Social History Question Answer Notes LastModified by Organizat ion Details LastModified Time Tobacco Smoking Status Never Smoker Marjan Ellison [facility], [place] - [facility] 01/08/2025 11:05:13 Do You Have An Advance Directive? No Information not available 01/08/2025 Is Blood Transfusion Acceptable In An Emergency? Yes Information not available 01/08/2025 What Is Your Level Of Caffeine Consumption? Heavy Information not available 01/08/2025 How Much Tobacco Do You Chew? None Information not available 01/08/2025 Are You Deaf Or Do You Have Serious Difficulty Hearing? No Information not available 01/08/2025 What Type Of Diet Are You Following? CARBOHYDRATE Information not available 01/08/2025 Which Illicit Or Recreational Drugs Have You Used? Pot Information not available 01/08/2025 What Is The Highest Grade Or Level Of School You Have Completed Or The Highest Degree You Have Received? [id number] Information not available 01/08/2025 How Many Years Have You Used Illicit Or Recreational Drugs? 11 Information not available 01/08/2025 What Was The Date Of Your Most Recent Tobacco Screening? 01/08/2025 Information not available 01/08/2025 How Many Children Do You Have? 0 Information not available 01/08/2025 Do You Use Protection Against STDs? No Information not available 01/08/2025 What Is Your Relationship Status? Committed Partner(s) Information not available 01/08/2025 Do You Use Your Seat Belt Or Car Seat Routinely? Yes Information not available 01/08/2025 Are You Sexually Active? Yes Information not available 01/08/2025 Do You Have Smoke And Carbon Monoxide Detectors In Your Home? Yes Information not available 01/08/2025 Are You Passively Exposed To Smoke? No Information not available 01/08/2025 Do You Use Sunscreen Routinely? No Information not available 01/08/2025 Sex: Female Functional Status Question Answer Note LastModified by Organizat ion Details LastModified Time Do you use any illicit or recreational drugs? Yes Information not available 01/08/2025 What is your level of alcohol consumption? None Information not available 01/08/2025 Do you or have you ever used smokeless tobacco? Never used smokeless tobacco Information not available 01/08/2025 Are you currently employed? Yes Information not available 01/08/2025 Are you able to care for yourself independently? 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 Never used electronic cigarettes Information not available 01/08/2025 What is your exercise level? None Information not available 01/08/2025 Mental Status Question Answer Note LastModified by Organization D etails LastModified Time Do you feel stressed (tense, restless, nervous, or anxious, or unable to sleep at night)? [id number] Information not available 01/08/2025 Family History Relationship Description Onset Age of this Age Resolved Age Notes LastModified by Organization Details LastModified Time Maternal Uncle Anxiety disorder cbuckler Not available 2024 11:05:04 Father Hypercholest erolemia cbuckler Not available 2024 11:05:04 Father Chronic obstructive pulmonary disease cbuckler Not available 2024 11:05:04 Father Harmful pattern of use of alcohol cbuckler Not available 2024 11:05:04 Father Cerebrovascu lar accident cbuckler Not available 11:05:04 Father Disease of liver cbuckler Not available 2024 11:05:04 Father Malignant neoplasm of lung cbuckler Not available 2024 11:05:04 Father Hypertensive disorder cbuckler Not available 2024 11:05:04 Father Diabetes mellitus cbuckler Not available 2024 11:05:04 Medical History Condition Response Anxiety Disorder Y Eating Disorder Y Obesity Y Seizures/Epilepsy Y Constipation Y Acid Reflux (GERD) Y Kidney or Bladder Problems Y Depression Y Gynecological History Statement/Question Response Menses Monthly N LMP Approximate Date of LMP 01/01/2025 Obstetrics History GPAL:G 0 P 0 0 0 0 Immunizations Vaccine Type Date Status Note Provider Name and Address Organization Details Recorded Time DTaP, unspecified formulation 10/14/18 98 completed Not Available [facility] 01/19/2025 14:15:32 IPV 10/14/18 98 completed Not Available [facility] 01/19/2025 14:15:32 Hib, unspecified formulation 10/14/18 98 completed Not Available [facility] 01/19/2025 14:15:32 DTaP, unspecified formulation 01/20/19 98 completed Not Available [facility] 01/19/2025 14:15:32 IPV 01/20/19 98 completed Not Available [facility] 01/19/2025 14:15:32 Hib, unspecified formulation 01/20/19 98 completed Not Available [facility] 01/19/2025 14:15:32 Hep B, adolescent or pediatric 01/20/19 98 completed Not Available [facility] 01/19/2025 14:15:32 DTaP, unspecified formulation 09/01/18 99 completed Not Available Count includes the [facility] 01/19/2025 14:15:32 Hib-Hep B 09/01/18 99 completed Not Available [facility] 01/19/2025 14:15:32 DTaP, unspecified formulation 11/02/19 00 completed Not Available [facility] 01/19/2025 14:15:32 MMR 11/02/19 00 completed Not Available [facility] 01/19/2025 14:15:32 IPV 11/02/19 00 completed Not Available [facility] 01/19/2025 14:15:32 Hib, unspecified formulation 11/02/19 00 completed Not Available [facility] 01/19/2025 14:15:32 MMR 11/16/19 02 completed Not Available [facility] 01/19/2025 14:15:32 IPV 11/16/19 02 completed Not Available Count includes the [facility] 01/19/2025 14:15:32 varicella 11/16/19 02 completed Not Available Count includes the [facility] 01/19/2025 14:15:32 DTaP, unspecified formulation 09/06/19 03 completed Not Available [facility] 01/19/2025 14:15:32 HPV, quadrivalent 12/29/19 10 completed Not Available [facility] 01/19/2025 14:15:32 meningococcal MCV4, unspecified formulation 12/29/19 10 completed Not Available [facility] 01/19/2025 14:15:32 Tdap 12/29/19 10 completed Not Available Count includes the [facility] 01/19/2025 14:15:32 COVID-19 vaccine, vector-nr, rS-Ad26, PF, 0.5 mL 12/10/19 21 completed Not Available Count includes the [facility] 01/19/2025 14:15:32 COVID-19, mRNA, LNP-S, PF, 100 mcg/0.5mL dose or 50 mcg/0.25mL dose 05/05/20 21 completed Not Available Count includes the [facility] 01/19/2025 14:15:32 Tdap 01/20/20 25 cancelled patient objection Claire Jade, MASONRY [employer]OR [address], [place], [address], [place] - [facility] 01/19/2025 15:32:10 Past Encounters Encounter ID Performer Location Encounter Start Date Encounter Closed Date Diagnosis/Indication Diagnosis SNOMED-CT Code Diagnosis ICD10 Code Diagnosis IMO Codes Diagnosis Note [id number] Claire Jade APRN [address] [address] 01/08/2025 10:54:34 01/08/2025 12:07:27 Obese class II 2425006479 47954 E66.812 Z68.39 8358585 39.9 Acute maxi llary sinusitis 56665145 J01.00 16742716 tylenol or motrin as neededflon ase dailyantib iotics as ordered Discharge from nipple 54 545298 N64.52 [id number] Claire Jade APRN [address] [address] 01/19/2025 14:15:27 01/19/2025 14:57:51 HIV screening declined 1856197595 83155 Z53.20 8993718848 Hepatitis C screening declined 4622449543 5105 Z53.20 3177738186 Tetanus di phtheria and acellular pertussis vaccination declined 6690263804 4642475 Z28.21 3262826374 Screening for malignant neoplasm of cervix declined 332112815 Z53.20 3621052645 Candidiasis of mouth 797 00162 B37.0 168217 Health Concerns Section Related Observation LastModified by Organization Detai ls LastModified Time None Recorded Concern Status LastModified by Organization Details LastModified Time None Recorded Advance Directives Directive N: Payers Insurance Date Sequence Insurance Name Policy Number Policy Morrison Covered Member ID Morrison Member ID Guarantor Name 03/04/2025 1 [employer] [place] (MEDICA[place] HMO) Ryland Yap [id number] Ryland Yap 03/04/2025 [place]ACED BY [facility] WRAP BILLING (MEDICAID) Ryland Yap [id number] Ryland Yap Notes Date Note Type Note Provider Name and Address Organization Details Recorded Time 01/08/2025 text/html ROS as noted in the HPI 29 yr old female presents as a new patient with left nipple clear drainage. She also has thick dark congestion,sinus pressure, and tenderness that started a few days ago. Denies body aches or fever. Claire Jade APRN [address], [place], [address], [place] - [facility] 01/08/2025 11:44:07 01/19/2025 text/html ROS as noted in the HPI 29 year old female who presents to the office today with concerns ofpainful white patches in mouth, throat feels numb. can peel skin from mouth Claire Jade, RONNA [address], [place], [address], [place] - [facility] 01/19/2025 15:32:14 OBGyn Episode No OBEpisode recorded.
--- OUTSIDE RECORDS SUMMARY | 2025-03-13 15:07 | XMS_ITS | Data Portability ---
Author Organization [place] [facility] - [place] & TIMBO Serna ADMIN Address [address] [place] [address] Care Team Providers Care Stone Hand Name Role Phone LEMUEL FOSTER Primary Care Provider [phone] Assessment Encounter Date Assessment Date Assessment LastModified by Organization Details LastModified Time 04/30/2024 04/30/2024 -MRI brain w/ and w/out -EEG -Oxcarb titrate up to 450 mg BID -Keppra taper off -f/u as scheduled [place] [address] Not available 04/30/2024 15:01:45 06/19/2024 06/19/2024 -OXC titrate up to 600 mg BID -labs next week: CBC, CMP, OXC -reviewed MRI brain, EEG -reviewed hospital records [place] [address] Not available 06/19/2024 15:51:30 07/29/2024 07/29/2024 -Oxcarb 900 mg BID -labs: CBC, CMP, OXC level -some aspects of her history suggest MELYSSA, but EEGs have not shown convincing evidence of this. -if no improvement, consider transition to alternative AED for generalized epilepsy such as ALLEN or TPM. -refer for EMU monitoring -reviewed epilepsy education -follow up as scheduled [place] [address] Not available 07/29/2024 16:40:23 Plan of Treatment Reminders Order Date Submit Date Provider Last Modified By Organization Details Last Modified Time Details Appointments OV EST 15 2024 03:15P Amna Ceron M.D Not available Not available Not available Lab CMP, serum or plasma 2024 025 [facility] (Lab Registration) , [address] [place] [address] [place], [address], 08/05/2024 07:50:27 CBC w/ auto diff 2024 025 [facility] (Lab Registration) , [address] [place] [address] [place], [address], 08/05/2024 07:50:27 oxcarbaz epine, serum 2024 025 [facility] (Lab Registration) , [address] [place] [address] [place], [address], 08/05/2024 07:50:27 oxcarbaz epine, serum [address] (Lab Registration) , [address] [place] [address] [place], [address], 06/26/2024 08:13:13 CMP, serum or plasma [address] [facility] (Lab Registration) , [address] [place] [address] [place], [address], 06/26/2024 08:13:13 CBC w/ auto diff [address] (Lab Registration) , [address] [place] [address] [place], [address], 06/26/2024 08:13:13 Referral None recorded . Procedures electroe ncephalo gram (EEG); includin g recordin g awake and asleep (PROC) 2023 024 [facility] Central Scheduling, [address] [place] [address] [place], [address], 05/12/2024 07:52:47 Surgeries None recorded . Imaging MRI, brain, w/wo contrast 2023 024 [facility] (Central Scheduling), [address] [place] [address] [place], [address], 05/12/2024 07:52:53 electroe ncephalo gram 2023 024 [facility] (Centralized Scheduling), [address] , [place], [address], 10/26/2023 08:21:06 Medication Orders oxcarbaz epine 600 mg tablet 2024 025 [employer] [facility], [address] [place] [address], [id number], 02/20/2025 14:37:07 Valtoco 20 mg/2 spray (10mg/0. 1mL x2) nasal spray 2024 025 [employer] [facility], [address] [place] [address], [id number], 08/01/2024 17:52:04 oxcarbaz epine 600 mg tablet 2024 025 [employer] [facility], [address] [place] [address], [id number], 06/20/2024 16:05:59 oxcarbaz epine 300 mg tablet 2023 024 [employer] [facility], [address] [place] [address], [id number], 06/02/2024 13:33:49 Patient TargetsNo targets recorded. Patient InstructionsNo instructions recorded. Reason for Referral None Reported. Results Created Date Observation Date Name Description Value Unit Range Abnormal Flag Note LastModifiedBy Organization Detail LastModifiedTime 10/26/19 24 elect roenc ephal ogram No observ ation record ed. [facility] (Centralized Scheduling) [address] , [place], [address], 10/26/2023 08:21:08 05/22/19 25 05/22/2024 MRI, brain , w/wo contr ast [facility] [address] [place] [address] (Phone ) IMAGIN G REPORT Name: RYLAND YAP : 1995 Accoun t #: [id number] Age: 28 Years Patien t Type: Outpat ient Sex: F Access ion#: [id number] Exam Descri ption: MRI BRAIN WOW - ROUTIN E Exam Reason : epilep sy Order Date/T damon: 2024 03:31: 00 PM Dictat ed By: Abdi manuel MD Orderi Physic sonia: BENITO CULLEN Attend ing Physic sonia: BENITO CULLEN MR BRAIN WITHOU T THEN WITH IV CONTRA ST perfor med on 05/22/19 2: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 INDICA TION: epilep sy Additi onal Histor y: TECHNI QUE: Multip lanar, multis equenc e MRI brain perfor med with both pre- and post-c ontras t jared g. COMPAR JULIO: Prior MRI brain of [...] RYLAND YAP : 1995 Accoun t #: [id number] Age: 28 Years Patien t Type: Outpat ient Sex: F Access ion#: [id number] Exam Descri ption: MRI BRAIN WOW [...] 04:10 PM EST RP Workst ation: [id number] Princi pal Interp reter Name: Abdi manuel Provid er ID: [id number] PAGE 2 OF 2 CC'ed Logic: Orderi ng Provid er: TIMMY OLIVER JUDE CC Provid er: KRISTIN HAQUE Attend ing Provid er: TIMMY OLIVER JUDE Referr ing Provid er: TIMMY OLIVER JUDE Admitt ing Provid er: TIMMY OLIVER JUDE [email or web address] [facility] (Central Scheduling) [address] [place] [address] [place], [address], 05/23/2024 08:26:08 05/22/19 25 05/22/2024 MRI, brain , w/wo contr ast No observ ation record ed. [facility] (Central Scheduling) [address] [place] [address] [place], [address], 05/23/2024 08:25:57 06/02/19 25 05/22/2024 elect roenc ephal ogram (EEG) ; inclu ding recor ding awake and aslee p (PROC ) No observ ation record ed. [facility] Central Scheduling [address] [place] [address] [place], [address], 06/03/2024 08:05:50 07/21/19 25 07/19/2024 elect roenc ephal ogram (EEG) ; inclu ding recor ding awake and aslee p (PROC ) No observ ation record ed. [facility] (Registration ) [address] [place] [address] [place], [address], 07/21/2024 12:39:39 Result Notes Documentation Provider Name and Address Organization Details Recorded Time Mri, Brain, W/wo Contrast : [address] [address] (Phone) IMAGING REPORT ___ Name: RYLAND YAP : 1995 Age: 28 Years Patient Type: Outpatient Sex: F Exam Description: MRI BRAIN WOW - ROUTINE Exam Reason: epilepsy Order Date/Time: 05/22/2024 03:31:00 PM Dictated By: Abdi White MD Ordering Physician: MICHAEL CERON Attending Physician: MICHAEL CERON ___ MR BRAIN WITHOUT THEN WITH IV CONTRAST performed on 05/22/2024 2: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 INDICATION: epilepsy Additional History: TECHNIQUE: Multiplanar, multisequence [...] by: Abdi White MD 05/22/2024 04:10 PM [facility] Scrap Picker Name: Abdi White Provider ID: [id number] PAGE 2 OF 2 CC'ed Logic: Ordering Provider: LENIN SUERO CC Provider: KRISTIN HDEZ Attending Provider: LENIN SUERO Referring Provider: LENIN SUERO Admitting Provider: LENIN bhatt, [place] - [facility] - [place] & [place] 05/23/2024 08:26:08 Problems Name Problem SNOMED Code Status Onset Date Resolution Date Notes Provider Name and Address Organization Details Recorded Time Seizure 24863176 Active 024 Mora Ahnrupert bhatt, [place] - [facility] - [place] & [place] 10/10/2023 10:46:48 Problem Notes None recorded. Procedures Surgical History Date Name Laterality Status Provider Name and Address Organization Details Recorded Time 04/07/2024 completed Ciarrahakeem Martinez [facility] - [place] & [place] 04/30/2024 14:29:42 04/07/2024 Date of Last Pap Smear completed Ciarrahakeem Martinez [facility] - [place] & [place] 04/30/2024 14:29:42 Imaging Results None recorded. Procedure [...] Available Not Available Not Available amoxicillin 875 mg-kaelyn acuña clavulanate 125 mg tablet TAKE 1 TABLET [...] blood by Pulse oximetry Heart rate Systolic And Diastolic Provider Name and Address Organization Details Last Updated DateTime 5 160.02 cm 62072.3 6 g 97.6 [degF] 99 % 99 % 106 /min 122/80 mm[Hg] Ciarra Hernández [place] - [facility] - [place] & [place] 5 15:29:41 Date Recorded Body height Body mass index (BMI) Body weight Body temperature Oxygen saturation Oxygen saturation in Arterial blood by Pulse oximetry Heart rate Systolic And Diastolic Provider Name and Address Organization Details Last Updated DateTime 5 160.02 cm 38.1 kg/m2 83071.3 6 g 98.4 [degF] 98 % 98 % 99 /min 130/60 mm[Hg] Ciarra Hernández [facility] & [place] 5 16:09:45 Date Recorded Body height Body mass index (BMI) Body weight Heart rate Oxygen saturation Oxygen saturation in Arterial blood by Pulse oximetry Systolic And Diastolic Provider Name and Address Organization Details Last Updated DateTime 4 160.02 cm 38.1 kg/m2 37505.0 8 g 82 /min 98 % 98 % 108/62 mm[Hg] Mora Nguyễn [facility] & [place] 4 10:59:04 Date Recorded Body height Body mass index (BMI) Body weight Body temperature Oxygen saturation Oxygen saturation in Arterial blood by Pulse oximetry Heart rate Systolic And Diastolic Provider Name and Address Organization Details Last Updated DateTime 4 160.02 cm 37.8 kg/m2 02736.3 3 g 98.3 [degF] 98 % 98 % 83 /min 130/80 mm[Hg] Ciarra Hernández [facility] & [place] 4 14:29:11 Social History Question Answer Notes LastModified by Organizat ion Details LastModified Time Tobacco Smoking Status Never Smoker [facility] [place] 10/10/2023 08:12:33 Do You Have An Advance Directive? No [email or web address] Information not available 04/30/2024 Are You Blind Or Do You Have Difficulty Seeing? No [email or web address] Information not available 04/30/2024 What Is Your [...] Are You Passively Exposed To Smoke? Yes [email or web address] Information not available 04/30/2024 Have You Used [...] available 10/10/2023 What is your occupation? [email or web address] Information not available 10/10/2023 What is your exercise level? None Information not available 04/30/2024 Mental Status None [...] ICD10 Code Diagnosis IMO Codes Diagnosis Note [id number] Sherrie Yap, DO [facility] [address] [facility] [address] [place] [address] 10/10/2023 10:40:46 10/10/2023 12:20:43 Seizure 64582082 R56.9 She had recent event in her [...] seizure medication once EEG can be reviewed. [id number] Earlene Varghese [facility] [address] [place] [address] 04/30/2024 14:13:40 04/30/2024 15:01:18 Localization-related symptomatic epilepsy 903814421 G40.676 [id number] Earlene Varghese [facility] [address] [place] [address] 06/19/2024 15:17:16 06/19/2024 16:00:26 Localization-related idiopathic epilepsy 627495533 G40.444 [id number] Ealrene Varghese [facility] [address] [place] [address] 07/29/2024 15:57:10 07/29/2024 16:37:31 Focal epilepsy 421541301 G40.109 [id number] Health Concerns Section Related Observation LastModified by Organization Detai ls LastModified Time None Recorded Concern Status LastModified by Organization Details LastModified Time None Recorded Advance Directives Directive N: Payers Insurance Date Sequence Insurance Name Policy Number Policy Morrison Covered Member ID Morrison Member ID Guarantor Name 06/19/2024 1 [employer] [place] [employer] [place] [employer] [place] ([place] Ryland Yap [id number] Ryland Yap 06/19/2024 1 [employer] [place] ([place]ICA[place] Ryland Yap [id number] Ryland Yap 07/30/2024 1 [employer] (MEDICARE REPLACEMENT/ ADVANTAGE - HMO) Ryland Yap [id number] Ryland Yap 03/13/2025 1 [employer] [place] ([place]ICA[place] Ryland Yap [id number] Ryland Yap 06/19/2024 1 [place] [facility] CHOICES - FFS/TRADITIO NAL Ryland Yap [id number] Ryland Yap Notes Date Note Type Note Provider Name and Address Organization Details Recorded Time 10/10/2023 text/html 28 y/o right handed female here for neurologic consultation requested by [...] normal developmental milestones. Sherrie Yap, DO [address], [place], [address], [facility] & [place] 10/10/2023 11:47:11 04/30/2024 text/html Seizure Disorder s and EpilepsyReported by Patient Ms. Ryland Yap is a 28 y/o [...] back on Keppra recently. Michael Ceron M.D [address] [place] [address], [address], [place], [address], [facility] & [place] 04/30/2024 15:02:12 06/19/2024 text/html Seizure Disorder s and EpilepsyReported by Patient MsCatrina Yap is a 28 y/o F who [...] EEG which were normal. Michael Ceron M.D [address] [place] [address] Drive, [address], [place], [address], [facility] - [facility] & [place] 06/19/2024 15:59:46 07/29/2024 text/html Seizure Disorder s and EpilepsyReported by Patient Ms. Ryland Yap is a 28 y/o [...] home from the hospital. Michael Ceron M.D [address] [place] [address], [address], [place], [address] - [facility] & [place] 07/29/2024 16:41:32 OBGyn Episode No OBEpisode recorded.
--- OUTSIDE RECORDS SUMMARY | 2025-03-13 15:07 | XMS_ITS | Continuity of Care Document ---
[facility] Address [address] [place] [address] Assessment No assessment recorded. Plan of Treatment Reminders Order Date Submit Date Provider Last Modified By Organization Details Last Modified Time Details Appointments None recorded. Lab None recorded. Referral None recorded. Procedures None recorded. Surgeries None recorded. Imaging None recorded. Medication Orders nystatin 100,000 unit/mL oral suspension 2024 025 [employer], [address], [place], [id number], 05:01:58 Patient TargetsNo targets recorded. Patient InstructionsNo instructions recorded. Reason for Referral None Reported. Results Created Date Observation Date Name Description Value Unit Range Abnormal Flag Note LastModifiedBy Organization Detail LastModifiedTime 01/09/2001/08/2025 pregn nasrin test, urine HCG negati ve Not Available [address], [address], 01/08/2025 11:30:01 03/02/2002/26/2025 MAMMO , diagn ostic , digit al, bilat eral No observ ation record ed. [facility] [address], [place], [address], 03/13/2025 13:27:24 03/02/20 25 02/26/2025 US, breas t, unila teral , compl ete No observ ation record ed. [facility] [address], [place], [address], 03/13/2025 08:48:18 Result Notes None recorded. Problems Name Problem SNOMED Code Status Onset Date Resolution Date Notes Provider Name and Address Organization Details Recorded Time Mixed anxiety and depressive disorder 664596272 Active 025 [place] [facility] 14:36:57 [...] Not Available No t Available amoxicillin 875 mg-kaelyn acuña clavulanate 125 [...] Last Updated DateTime 160.02 cm 39.1 kg/m2 684892. 91 g 90 /min 98 % 98 % 18 /min 97.8 [degF] 134/80 mm[Hg] Katherineraf Slade [place] - [facility] 14:35:56 Social History Question Answer Notes LastModified by Organizat ion Details LastModified Time Tobacco Smoking Status Never Smoker Marjan Terra bhatt, [place] - [facility] 01/08/2025 11:05:13 Do You [...] Or The Highest Degree You Have Received? 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 Never used electronic cigarettes Information not available 01/08/2025 What is your exercise level? None Information not available 01/08/2025 Mental Status Question Answer Note LastModified by Organization D etails LastModified Time Do you feel stressed (tense, restless, nervous, or anxious, or unable to sleep at night)? [id number] Information not available 01/08/2025 Family History Relationship [...] unspecified formulation 10/14/18 98 completed Not Available [facility] 01/19/2025 14:15:32 IPV 10/14/18 98 completed Not Available [facility] 01/19/2025 14:15:32 Hib, unspecified formulation 10/14/18 98 completed Not Available [facility] 01/19/2025 14:15:32 DTaP, unspecified formulation 01/20/19 98 completed Not Available [facility] 01/19/2025 14:15:32 IPV 01/20/19 98 completed Not Available [facility] 01/19/2025 14:15:32 Hib, unspecified formulation 01/20/19 98 completed Not Available [facility] 01/19/2025 14:15:32 Hep B, adolescent or pediatric 01/20/19 98 completed Not Available [facility] 01/19/2025 14:15:32 DTaP, unspecified formulation 09/01/18 99 completed Not Available [facility] 01/19/2025 14:15:32 Hib-Hep B 09/01/18 99 completed Not Available [facility] 01/19/2025 14:15:32 DTaP, unspecified formulation 11/02/19 00 completed Not Available [facility] 01/19/2025 14:15:32 MMR 11/02/19 00 completed Not Available [facility] 01/19/2025 14:15:32 IPV 11/02/19 00 completed Not Available [facility] 01/19/2025 14:15:32 Hib, unspecified formulation 11/02/19 00 completed Not Available [facility] 01/19/2025 14:15:32 MMR 11/16/19 02 completed Not Available [facility] 01/19/2025 14:15:32 IPV 11/16/19 02 completed Not Available [facility] 01/19/2025 14:15:32 varicella 11/16/19 02 completed Not Available [facility] 01/19/2025 14:15:32 DTaP, unspecified formulation 09/06/19 03 completed Not Available [facility] 01/19/2025 14:15:32 HPV, quadrivalent 12/29/19 10 completed Not Available [facility] 01/19/2025 14:15:32 meningococcal MCV4, unspecified formulation 12/29/19 10 completed Not Available [facility] 01/19/2025 14:15:32 Tdap 12/29/19 10 completed Not Available [facility] 01/19/2025 14:15:32 COVID-19 vaccine, vector-nr, rS-Ad26, PF, 0.5 mL 12/10/19 21 completed Not Available [facility] hospital 01/19/2025 14:15:32 COVID-19, mRNA, LNP-S, PF, 100 mcg/0.5mL dose or 50 mcg/0.25mL dose 05/05/20 21 completed Not Available [facility] hospital 01/19/2025 14:15:32 Tdap 01/20/20 25 cancelled patient objection Claire Jade, MACHINE BANDER AND CELLOPHANER HELPER [address], [place], [address], [place] - [facility] 01/19/2025 15:32:10 Past Encounters Encounter ID Performer Location Encounter Start Date Encounter Closed Date Diagnosis/Indication Diagnosis SNOMED-CT Code Diagnosis ICD10 Code Diagnosis IMO Codes Diagnosis Note [id number] Claire Jade APRN [address] [address] 01/08/2025 10:54:34 01/08/2025 12:07:27 Obese class II 5942291314 98092 E66.812 Z68.39 9067862 39.9 Acute maxi llary sinusitis 21972448 J01.00 07661634 tylenol or motrin as neededflon ase dailyantib iotics as ordered Discharge from nipple 54 332174 N64.52 13737 [id number] Claire Jade APRN [address] [address] 01/19/2025 14:15:27 01/19/2025 14:57:51 HIV screening declined 4372893499 40974 Z53.20 4463265195 Hepatitis C screening declined 6031259285 5105 Z53.20 5430808618 Tetanus di phtheria and acellular pertussis vaccination declined 9150357112 3484234 Z28.21 5613789934 Screening for malignant neoplasm of cervix declined 533587285 Z53.20 0946084031 Candidiasis of mouth 797 47645 B37.0 610434 Health Concerns Section Related Observation LastModified by Organization Detai ls LastModified Time None Recorded Concern Status LastModified by Organization Details LastModified Time None Recorded Payers Encounter Date Sequence Insurance Name Policy Number Policy Morrison Covered Member ID Morrison Member ID Guarantor Name 01/19/2025 1 [facility] (MEDICAID HMO) Ryland Yap [id number] Ryland Yap Notes Date Note Type Note Provider Name and Address Organization Details Recorded Time 01/19/2025 text/html ROS as noted in the HPI 29 year old female who presents to the office today with concerns ofpainful white patches in mouth, throat feels numb. can peel skin from mouth Claire Jade APRN [address], [place], [address], [place] - [facility] 01/19/2025 15:32:14 OBGyn Episode No OBEpisode recorded.
--- NOTE | 2025-03-13 15:15 | CA_ITS ---
APPROVED REPORT EXAM: Comprehensive 2D, Doppler, and color-flow Echocardiogram Water Conservation Specialist: Lindsey Ng RVT Ht: 5 ft 3 in Wt: 215lbs BSA: 1.99 BP: 140/87 mmHg Indications: ABNORMAL EKG,CARDIAC ARRHYTHMIA,FATIGUE 2D Dimensions LA Volume 14.00 mL LA Volume Index 7.00 mL/m2 (M/F) 16-34 M-Mode Dimensions RVDd 2.65 cm (0.9-2.6) LA Diam 2.42 cm (1.9-4.0) LVDd 3.36 cm (3.5-5.7) LVDs 2.29 cm (3.5-5.7) IVSd 0.54 cm (0.6-1.1) PWd 0.75 cm (0.6-1.1) EF (Teich) 61.20% FS 31.80% EDV (Teich) 46.10 mL TAPSE 2.60 (<1.7) ESV (Teich) 17.90 mL LV Diastology E Decel Time 193 (160-240 msec) E/A Ratio 1.7 Aortic Valve TEJINDER Index 1.58 cm2/m2 AoV Peak Uche. 103.0 (50-130 cm/s) AO Peak GR. 4.30 mmHg AO Mean GR. 2.20 (<5 mmHg) AO VTI 19.7 (18-25 cm) TEJINDER (VTI) 3.22 (2.5-4.5 cm2) Mitral Valve MV E Max Uche. 103.0 (40-130 cm/s) MV A Velocity 59.0 (40-130 cm/s) E/A Ratio 1.74 MV PHT 57.0 ms Pulmonary Valve PV Peak Velocity 82.0 (50-150 cm/s) Left Ventricle The left ventricle is normal size. Left ventricular systolic function is normal. The left ventricular ejection fraction is within the normal range. There is normal left ventricular wall thickness. There is normal LV segmental wall motion. The left ventricular diastolic function is normal. LVEF is 55% Right Ventricle The right ventricle is normal size. The right ventricular systolic function is normal. Atria The left atrium size is normal. The right atrium size is normal. There is no color Doppler evidence of interatrial shunt. Aortic Valve The aortic valve opens well. There is no hemodynamically significant aortic valvular stenosis. No aortic regurgitation is present. Mitral Valve The mitral valve is normal in structure. No evidence of mitral valve stenosis. Trace mitral regurgitation is present. Tricuspid Valve The tricuspid valve leaflets are thin and pliable. Trace tricuspid regurgitation. There is insufficient TR jet to estimate RVSP. Pulmonic Valve The pulmonary valve is grossly normal in structure. Trace pulmonic valve regurgitation is present. Great Vessels The aortic root is normal in size. IVC is normal in size and collapses >50% with inspiration. Pericardium There is no pericardial effusion. Other Information Study Quality: Adequate Conclusion Normal biventricular systolic function. No significant valvular stenosis or regurgitation. Electronically signed by : Christie Dela Cruz MD 03/16/2025 00:34:05
== END 2025-03-13 23:59 | disposition home or self-care (01) ==
LOC: RT 15:05
PROVIDERS: PCP Nurse Practitioner Family; Visit Provider Nurse Practitioner Family
DX: I49.9 Cardiac arrhythmia, unspecified (principal); Q21.10 Atrial septal defect, unspecified; R94.31 Abnormal electrocardiogram [ECG] [EKG]; R93.1 Abnormal findings on diagnostic imaging of heart and coronary circulation; R55 Syncope and collapse; R53.83 Other fatigue
CPT/HCPCS: 93306

== ENCOUNTER 2025-03-14 10:28 | Emergency (ER) | payer MEDICAID, SELFPAY ==
[2025-03-14 10:35] VITALS: BP 154/103; PULSE 108; RESP 16; TEMP 36.8; O2SAT 95; BMI 38.9
--- OUTSIDE RECORDS SUMMARY | 2025-03-14 10:54 | XMS_ITS | Clinical Summary ---
Author Organization [employer] ([place], [place], [place], [place], [place]) Address [address] [place] [address] Care Team Providers Care Motor Equipment Sergeant Name Role Phone Unavailable Primary Care Provider [...] patient's age to complete this topic Insurance [facility]
--- OUTSIDE RECORDS SUMMARY | 2025-03-14 10:54 | XMS_ITS | Encounter Summary ---
Author Organization [employer] ([place], [place], [place], [place], [place]) Address [address] [place] [address] Care Team Providers Care Mixer Helper Name Role Phone Unavailable Primary Care Provider Unavailabl e Reason for Referral * Consultation (Routine) - Closed Specialty Diagnoses / Procedures Referred By Lore t Referred To Contact Neurology Diagnoses Epilepsy, unspecified, intractable, without status epilepticus (HCC) Precious Edward [address] [place] [address] Phone: tel: Maribel Sena MD [address] [place] [address] Phone: tel: fax: Referral ID Status Reason Start Date Expiration Date V isits Requested Visits Authorized [id number] Closed Specialty Services Required 08/05/2024 08/05/2025 1 1 Encounter Details Date Type Department Care Team (Late st Contact Info) Description 08/05/2024 Outside Orders [facility] Neurology [address] [place] [address] Precious Edward [address] [place] [address] Epilepsy, unspecified, intractable, without status [...]
--- OUTSIDE RECORDS SUMMARY | 2025-03-14 10:54 | XMS_ITS | Referral Summary ---
Author Organization [employer] ([place], [place], [place], [place], [place]) Address [address] [place] [address] Care Team Providers Care Digital Forensics Investigator Name Role Phone Unavailable Primary Care Provider Unavailabl e Social History Tobacco Use Types Packs/Day Years Used Date Smoking Tobacco: Never Assessed Comments Unknown Sex and Gender Information Value Date Recorded Sex Assigned at Not on file Legal Sex Female 3:01 PM CDT Gender Identity Not on file Sexual Orientation Not on file Plan of Treatment Not on file Insurance [facility]
--- NOTE | 2025-03-14 10:58 | PC.NURSE ---
pt assisted to restroom. once back to room, pt hooked backup to monitor.
[2025-03-14 11:00] VITALS: PULSE 86; RESP 13; O2SAT 98
[2025-03-14 11:10] VITALS: BP 160/71; PULSE 92; RESP 18; TEMP 36.8; O2SAT 95
--- NOTE | 2025-03-14 11:13 | ED_ITS ---
Discharge Plan Disposition Patient Disposition: Home, Self-Care Condition: Fair Prescriptions Prescriptions: No Action sertraline 25 mg tablet PO DAILY Patient Comments: TAKE 1 TABLET 1 TIME EACH DAY oxcarbazepine 600 mg tablet 600 mg PO BID Rx Instructions: Take 1-1/2 tablets 2 times each day Referrals Follow up/Referrals: Precious Edward MD [Staff Physician, Neurology] - See instructions Activity Restrictions/Add. Instructions Additional Instructions/Restrictions: With your history of seizures and having a breakthrough seizure today no further emergent medical condition or intervention needed as you are back to your baseline. As you believe that your seizures are secondary to CPAP please continue to use that as instructed and to follow-up with Dr. Edward to discuss your increasing seizure frequency. I have given you a written prescription for your intranasal diazepam as our electronic prescribing features were not working appropriately so take this directly to your pharmacy. Return with any worsening symptoms or intractable seizures at home. Clinical Impressions Clinical Impression: Breakthrough seizure Instructions Patient Instructions: DI for Seizure Disorder in Adults, DI for Seizure (Not Epilepsy/Seizure Disorder), DI for Seizure Disorder in Child Print Language Print Language: Chadian Discharge ED Provider: Duke Hernández General Adult HPI General Chief complaint: Seizure Stated complaint: Seizure Time Seen by Provider: 03/14/25 10:42 Mode of Arrival: EMS Source of Information: Patient and EMS Description of Symptoms (Recalled from ER Triage Doc. by RN): PT PRESENTS TO ED FOR WITNESSED SEIZURE AT HOME. PT HAS HX OF SEIZURES, REPORTS THEY ARE TRIGGERED WHEN SHE DOESN'T WEAR HER CPAP AT NIGHT. PT STATES IT WASN'T ON WHEN SHE WOKE UP, BUT PUT IT ON LAST NIGHT WHEN SHE WENT TO BED. PT'S BOYFRIEND GAVE RESCUE MEDS AT HOME, 20 MG DIAZEPAM INTRANASALLY. PT POSTICTAL ON EMS ARRIVAL. History of Present Illness HPI narrative: Patient is a 29-year-old female diagnosed with epilepsy in 2018 did not do well on Keppra has been on Trileptal and followed by Dr. Edward since that time. Has not had any changes in medication she been compliant with her medications. Has only had 5 seizures this year states that it typically happens when her CPAP falls off at night. Which this happened last night. She is back to her baseline has no complaints had no complaints prior to this either. Family is at the bedside. She is been on seizure precautions. No nausea vomiting diarrhea fevers etc. Related Data Home Medications ?Medication ?Instructions ?Recorded ?Confirmed oxcarbazepine 600 mg tablet 600 mg PO BID 08/05/24 sertraline 25 mg tablet mg PO DAILY 01/08/25 5 Allergies Allergy/AdvReac Type Severity Reaction Status Date / Time No Known Allergies Allergy Verified 03/09/25 14:46 [facility] Disclaimer: The information contained in this section may have been updated after the patient was seen, as this information can be updated by other users. Medical History MINA (obstructive sleep apnea) Convulsive syncope Cardiac arrhythmia Sleep-disordered breathing Snoring History of bladder problems History of gastroesophageal reflux (GERD) History of seizure History of anxiety disorder History of depression Surgical History No history of previous surgery Family History Other Alcoholism Anxiety Depression Diabetes Hyperlipidemia Hypertension Substance abuse Social History Smoking Status: Current every day smoker alcohol intake: never substance use type: marijuana current occupational status: employed Travel in the last 8 weeks?: None household members: significant other and family housing: house marital status: single 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 caffeine: Yes Have you lived/traveled outside US in past 30 days?: No Contact w/someone who lives/traveled outside US past 30 days?: No Exposure to someone with infectious disease in past 14 days?: No Do you have a fever (greater than 100.4 F or 38 C)?: No Have you tested positive for COVID-19?: No Exposed to someone with COVID-19 in past 14 days?: No Do you have a sore throat?: No Do you have a cough?: No Do you have any weakness?: No Do you have any diarrhea?: No Are you experiencing any unusual bleeding?: No Do you have any muscle aches/pain?: No Do you have any abdominal pain?: No Are you experiencing loss of taste or smell?: No Other Medical History Have you received the Flu Vaccine for this season: No Have you received the Pneumonia Vaccine: No ROS Obtained: Yes All systems reviewed & no additional complaints except as documented Physical Exam General General appearance: alert and in no apparent distress Respiratory Respiratory exam: Present normal lung sounds bilaterally Cardiovascular Cardiovascular exam: Present regular rate Neurological Exam Neurological exam: Present alert, oriented X3 and other (Nonfocal) Medical Decision Making Medical Records Screening: Per USPSTF and CDC recommendations, given the prevalence of disease in our region, it is our hospital?s policy to screen for HIV and viral Hepatitis for all patients aged 18 and over and those with ongoing risk factors. Lucas Inquiry Pt receiving controlled substance: No Vital Signs: 03/14/25 10:35 03/14/25 10:35 03/14/25 11:00 Temperature 98.3 F 98.3 F Temperature Source Oral Pulse Rate 108 H 86 Pulse Rate [Right] 108 H Respiratory Rate 16 16 13 Blood Pressure 154/103 H Blood Pressure [Right Arm] 154/103 H Blood Pressure Mean [Right Arm] 120 02 Sat by Pulse Oximetry 95 95 98 Oxygen Delivery Method Room Air 03/14/25 11:10 Temperature 98.3 F Temperature Source Pulse Rate 92 H Pulse Rate [Right] Respiratory Rate 18 Blood Pressure 160/71 H Blood Pressure [Right Arm] Blood Pressure Mean [Right Arm] 02 Sat by Pulse Oximetry Oxygen Delivery Method Medical Decision Narrative: 29-year-old with above history and physical. She is awake alert oriented GCS of 15 has a history of seizures and had a breakthrough seizure today. She has been compliant with her medications has close follow-up with a neurologist which I recommend that she follow-up with. No other emergent medical intervention is needed at the moment. She is continuing to be on seizure precautions. She did run out of her intranasal diazepam which she used today and I have refilled this. A written prescription was given to her as my prescribing saw for was not working appropriately. This was in the form of 10 mg per 0.1 mL intranasal solution and she has been advised to take 20 mg as needed for breakthrough seizures and she was prescribed a total of 5 and a blister pack advised that she can repeat this x 1. Critical Care Critical Care Time Critical Care Time: No
== END 2025-03-14 11:30 | disposition home or self-care (01) ==
PROVIDERS: Emergency Provider Student in an Organized Health Care Education/Training Program; PCP Nurse Practitioner Family
DX: G40.909 Epilepsy, unspecified, not intractable, without status epilepticus (principal); F17.210 Nicotine dependence, cigarettes, uncomplicated; G47.33 Obstructive sleep apnea (adult) (pediatric); Z99.89 Dependence on other enabling machines and devices
CPT/HCPCS: 99283; 99284

== ENCOUNTER 2025-04-06 11:50 | Outpatient (CLI) | payer MEDICAID, SELFPAY ==
--- OUTSIDE RECORDS SUMMARY | 2025-02-25 23:00 | XMS_ITS | Encounter Summary ---
Author Organization Healthcare Address [address] [id number] Care Team Providers Care Insulator Apprentice Name Role Phone Neetu Templeton APRN Primary Care Provider [phone] Encounter Details Date Type Department Care Team (Latest Contact Info) Description 02/26/2025 - 02/26/2025 12:04 AM EDT Hospital Encounter [facility] [address] [phone] Encounter for other specified special examinations Discharge Disposition: Home or Self Care Social History Tobacco Use Types Packs/Day Years Used Date Smoking Tobacco: Never Assessed PHQ-2 Answer Date Recorded Patient Health Questionnaire-2 Score 3 03/30/2025 PHQ-9 Answer Date Recorded Patient Health Questionnaire-9 Score 14 03/30/2025 Comments Unknown Sex and Gender Information Value Date Recorded Sex Assigned at Not on file Legal Sex Female 8:30 PM EDT Gender Identity Not on file Sexual Orientation Not on file documented as of this encounter Functional Status * Over the past 2 weeks, how often have you been bothered by any of the following problems? Question Answer Date of Assessment Author Little interest or pleasure in doing things Not at all 03/30/2025 1:54 PM Ines Krause Feeling down, depressed, or hopeless Nearly every day 03/30/2025 1:54 PM Flores Krause Patient Health Questionnaire-2 Score 3 03/30/2025 1:54 PM Eugene Krause * Question Answer Date of Assessment Author Trouble falling or staying asleep, or sleeping too much Nearly every day 03/30/2025 1:54 PM Flores Krause Feeling tired or having little energy Nearly every day 03/30/2025 1:54 PM Flores Krause Poor appetite or overeating More than half the days 03/30/2025 1:54 PM Toya Krause Feeling bad about yourself - or that you are a failure or have let yourself or your family down More than half the days 03/30/2025 1:54 PM Toya Krause Trouble concentrating on things, such as reading the newspaper or watching television Several days 03/30/2025 1:54 PM Flores Krause Moving or speaking so slowly that other people could have noticed? Or the opposite - being so fidgety or restless that you have been moving around a lot more than usual. Not at all 03/30/2025 1:54 PM Flores Krause Thoughts that you would be better off or hurting yourself in some way Not at all 03/30/2025 1:54 PM Flores Krause Patient Health Questionnaire-9 Score 14 03/30/2025 1:54 PM Eugene Krause * How difficult have these problems made it for you to do your work, take care of things at home, or get along with other people? Answer Date of Assessment Author Not difficult at all 03/30/2025 1:54 PM Toya Gonzalez documented as of this encounter Plan of Treatment Not on file documented as of this encounter Procedures Procedure Name Priority Date/Time Associated Diagnosis Comments US BREAST OUTSIDE IMAGES UPLOAD Routine 02/26/2025 12:00 AM EDT Encounter for other specified special examinations documented in this encounter Results * US Breast Imaging Outside Images Upload (02/26/2025 12:00 AM EDT) Narrative IMAGING - 03/23/2025 2:20 PM EST This study was performed at an outside facility and has been loaded into the PACS system for reference only. This order has been auto-finalized and does not contain a result. us Imaging Upload Radiant IMG BI PROCEDURES Final R esult IMAGING documented in this encounter Visit Diagnoses Diagnosis Encounter for other specified special examinations documented in this encounter Care Teams Insulator Apprentice Relationship Specialty Start Date End Date Neetu Templeton APRN [address] [place] [address] PCP - General 07/31/24 documented as of this encounter
--- OUTSIDE RECORDS SUMMARY | 2025-02-25 23:05 | XMS_ITS | Encounter Summary ---
Author Organization Healthcare Address [address] [id number] Care Team Providers Care Ceramic Coater Name Role Phone Neetu Templeton APRN Primary Care Provider [phone] Encounter Details Date Type Department Care Team (Latest Contact Info) Description 02/26/2025 12:05 AM EDT - 02/26/2025 11:59 PM EDT Hospital Encounter [facility] Breast Care Center [facility] [address] [phone] Encounter for other specified special examinations Discharge [...] Score 14 03/30/2025 1:54 PM Eugene Krause eth * How difficult have these problems made [...] Procedure Name Priority Date/Time Associated Diagnosis Comments MAMMOGRAPHY OUTSIDE IMAGES UPLOAD Routine 02/26/2025 12:05 AM EDT Encounter for other specified special examinations documented in this encounter Results * Mammography Outside Images Upload (02/26/2025 12:05 AM EDT) Narrative IMAGING - 03/23/2025 2:20 [...] examinations documented in this encounter Care Teams Ceramic Coater Relationship Specialty Start Date End Date Neetu Templeton APRN [address] [place] [address] PCP - General 07/31/24 documented as of this encounter
--- OUTSIDE RECORDS SUMMARY | 2025-03-30 13:00 | XMS_ITS | Encounter Summary ---
Author Organization Healthcare Address [address] [id number] Care Team Providers Care Manager Legal Name Role Phone Neetu Templeton RONNA Primary Care Provider [phone] Reason for Referral * Consultation (Routine) - Authorized Specialty Diagnoses / Procedures Referred By Lore t Referred To Contact Genetics Diagnoses Nipple discharge in female Pretty Cai APRN [address] [address] Phone: tel: fax: [facility] [address] [place] [address] Phone: tel: fax: Referral ID Status Reason Start Date Expiration Date Visits Requested Visits Authorized [id number] Authorized Specialty Services Required 09/29/2026 1 1 Encounter Details Date Type Department Care Team ([facility] st Contact Info) Description 03/30/2025 1:00 PM EST Office Visit [facility] [address] [place] [id number] Pretty Cai APRN [address] Cindy Pelaezrickson [facility] [address] [place] [address] Nipple discharge in female (Primary Dx); Family history of breast cancer Social History Tobacco Use Types Packs/Day Years Used Date Smoking Tobacco: Never Passive Smoke Exposure: Current Smokeless Tobacco: Never Alcohol Use Standard Drinks/Week Comments Never 0 (1 standard drink = 0.6 oz pur e alcohol) PHQ-2 Answer Date Recorded Patient Health Questionnaire-2 Score 3 03/30/2025 PHQ-9 Answer Date Recorded Patient Health Questionnaire-9 Score 14 03/30/2025 Comments No Sex and Gender Information Value Date Recorded Sex Assigned at Not on file Legal Sex Female 8:30 PM EDT Gender Identity Not on file Sexual Orientation Not on file documented as of this encounter Last Filed Vital Signs Vital Sign Reading Time Taken Comments Blood Pressure 149/87 03/30/2025 2:08 PM EST Pulse 78 03/30/2025 2:08 PM EST Temperature - - Respiratory Rate 18 03/30/2025 2:08 PM EST Oxygen Saturation 96% 03/30/2025 2:08 PM EST Inhaled Oxygen Concentration - - Weight 99.4 kg (219 lb 2.2 oz) 03/30/2025 2:08 P M EST Height 160 cm (5' 3 ) 03/30/2025 2:08 PM EST Body Mass Index 38.82 03/30/2025 2:08 PM EST documented in this encounter Functional Status * Over the past 2 weeks, how often have you been bothered by any of the following problems? Question Answer Date of Assessment Author Little interest or pleasure in doing things Not at all 03/30/2025 1:54 PM EST Ines Ortiz Feeling down, depressed, or hopeless Nearly every day 03/30/2025 1:54 PM EST Flores Ortiz Patient Health Questionnaire-2 Score 3 03/30/2025 1:54 PM EST Eugene Ortiz * Question Answer Date of Assessment Author Trouble falling or staying asleep, or sleeping too much Nearly every day 03/30/2025 1:54 PM Flores Krause Feeling tired or having little energy Nearly every day 03/30/2025 1:54 PM Flores Krause Poor appetite or overeating More than half the days 03/30/2025 1:54 PM EST Toya Ortiz Feeling bad about yourself - or that [...] Toya Gonzalez documented as of this encounter Miscellaneous Notes * Progress Notes - Pretty Cai APRN - 03/30/2025 1:00 PM EST Images from the original note were not included. Subjective DOS: 03/30/2025 CC: Patient is seen in consultation from Claire Granados APRN for left nipple discharge. HPI Patient is a 29 year old female who presents for left nipple discharge. She has a PMH of anxiety. She has no personal of breast cancer. Her family history of breast cancer includes her maternal aunt.Other family history of cancer includes her aunt with lung and brain cancer and father with lung and skin cancer. She underwent diagnostic imaging on 02/26/2025 that demonstrated a 1cm benign cyst at2OC 1CFN and a benign duct dilation in the left breast. She reports clear left nipple discharge that started a month ago. The discharge is only produced on expression from one duct. She is a current marijuana user. She denies breast pain and skin changes. She denies fever, nausea, vomiting, body aches, chills, back pain and headaches. Her lifetime risk for breast cancer based on the JIMMY model is 16.3%. She desires a genetic counseling referral. TREATMENT HISTORY: -DIAGNOSIS: Left nipple discharge -TREATMENT: N/A -IMAGING: I personally and independently reviewed the patients imaging which showed: 02/26/2025 Bilateral Dx MMG/Left US: BIRADS2 PMHx: Past Medical History[1] PSHx: Surgical History[2] [employer]/Breast Hx: -Menarche: 17 -LMP: 03/2025 -OCP hx: yes -G1@: N/A -G P -Breast feeding (m): no -Infertility treatments: no -Menopause: no -HRT: no -Hyst/Ooph: no -Previous Bx: no FHx: Family History[3] SHx: Social History[4] Employer: No address on file. Travel History Relevant International Travel History: Travel Screening Question Response Have you been in contact with someone who was sick? No / Unsure Do you have any of the following new or worsening symptoms? None of these Have you traveled internationally or domestically in the last month? No Travel History Travel since 02/27/25 No documented travel since 02/27/25 Relevant Domestic Travel History: N/A Immunizations Reviewed VACCINE / DOSE Flu Tetanus Pneumovax Shingles Allergies Patient has no allergy information on record. Medications Current Medications[5] Review of Systems Constitutional: Negative. Negative for fatigue, fever and unexpected weight change. HENT: Negative. Respiratory: Negative. Negative for shortness of breath. Cardiovascular: Negative. Negative for chest pain. Gastrointestinal: Negative. Genitourinary: Negative. Musculoskeletal: Negative for back pain. Skin: Negative. Neurological: Negative. Negative for headaches. Psychiatric/Behavioral: The patient is nervous/anxious. Objective PE: Visit Vitals BP (!) 149/87 (BP Location: Right arm) Pulse 78 Resp 18 Physical Exam HENT: Head: Normocephalic. Eyes: Extraocular Movements: Extraocular movements intact. Conjunctiva/sclera: Conjunctivae normal. Cardiovascular: Rate and Rhythm: Normal rate. Pulmonary: Effort: Pulmonary effort is normal. Chest: Comments: Breasts are examined sitting and supine position. No contour abnormality. Bilateral denseand fibrocystic changes noted. Bilateral nipples are everted and without discharge. No discreet masses or skin changes on either breast. Musculoskeletal: General: Normal range of motion. Cervical back: Normal range of motion. Skin: General: Skin is warm. Neurological: Mental Status: She is alert and oriented to person, place, and time. Psychiatric: Mood and Affect: Mood normal. Behavior: Behavior normal. Radiology (reviewed by ): 02/26/2025 Bilateral Dx MMG/Left US Pathology (reviewed by ): No pathology to review. Assessment/Plan Patient is a 29 y.o. female presenting with left nipple discharge. -Today's physical examination revealed bilateral dense and fibrocystic breast tissue with no suspicious masses, nodules, and/or skin changes. Patient endorses left breast nipple discharge. A bilateral diagnostic mammogram and left breast ultrasound was performed on 02/26/2025 demonstrating a benignduct dilation and 1cm benign cyst in the left breast. -I discussed with the patient the findings of her imaging at [facility]; BI-RADS 2. We discussed we will continue to follow up in 6 months with imaging and clinical breast exam. She desires to see her PCP for this. - We discussed marijuana use can be a cause of nipple discharge. -We discussed nipple discharge is the third most common breast complaint and in most cases unrelated to breast pathology. We discussed non-spontaneous discharge from multiple ducts in an individual that is not lactating can occur during , following breast stimulation, in the setting of certain thyroid conditions, and in those taking certain medications such as estrogen, oral contraceptives, opiates, and particular psychoactive drugs or antihypertensive agents. We discussed to stop the compression of the breast and to report the development of any spontaneous discharge. -It is normal for many women to express spontaneously or with external pressure a few drops of sticky, nunes, green, or black viscous fluid. Normal spontaneous nipple discharge occurs in mammogenesis or lactogenesis, a process of growth and development of the mammary gland in preparation for milk production. The mammary glands mature approximately 1.5 years after the onset of menstruation. -Other causes of galactorrhea include hypothyroidism, hyperthyroidism and renal failure. - We discussed she may not be a candidate for genetic testing due to family history and risk for breast cancer. Genetic referral placed today. PLAN - Stable examination - L clear nipple discharge on expression - Benign imaging findings - Genetic referral placed - Rtc, as needed - F/u with PCP for imaging Her chronic comorbid conditions that impact our treatment planning include: anxiety As always, she is encouraged to contact our office at the number provided for any additional questions or concerns. She voiced understanding of the plan, asked appropriate questions, and all questions were answered to her satisfaction today. 60 minutes was spent on this encounter; including preparing to see the patient, which involved review/interpretation of diagnostics and reports; obtaining and/or reviewing separately obtained history; performing appropriate physical exam; ordering/scheduling medications, tests or procedures; communicating findings and counseling/educating the patient, family and/or caregiver; documentation in EMR; and care coordination. [1] No past medical history on file. [2] No past surgical history on file. [3] No family history on file. [4] [5] No current outpatient medications on file. No current facility-administered medications for this visit. documented in this encounter Plan of Treatment Scheduled Referrals Name Type Priority Associated Diagnoses Order Schedule Ambulatory referral to Oncology Genetics Outpatient Referral Routine Nipple discharge in female Expected: 03/30/2025 (Approximate), Expires: 10/01/2026 documented as of this encounter Visit Diagnoses Diagnosis Nipple discharge in female- Primary Family history of breast cancer Family history of malignant neoplasm of breast documented in this encounter Additional Health Concerns Assessment Noted Time PHQ-9 Depression Total Score: 14 025 1:54 PM EST A fall risk assessment has been complete d for the patient 03/30/2025 1:54 PM EST documented as of this encounter Care Teams Manager Legal Relationship Specialty Start Date End Date Neetu Templeton APRN [address] [place] [address] PCP - General 07/31/24 documented as of this encounter
--- NOTE | 2025-04-06 11:50 | XR_ITS ---
FINAL REPORT CLINICAL HISTORY: right ankle fx COMPARISON: 03/09/2025 FINDINGS: AP, oblique, and lateral views of the right ankle were obtained. There has been interval increase in callus formation about the fracture of the lateral malleolus. No new osseous abnormality identified. There is improved soft tissue edema. IMPRESSION: Interval lateral malleolar fracture healing with improved soft tissue edema. Reviewed, Interpreted and Dictated by Reyna Arias MD Transcribed by Terrie Caicedo Authenticated and [facility]
--- OUTSIDE RECORDS SUMMARY | 2025-04-06 12:01 | XMS_ITS | Data Portability ---
Author Organization [facility] [employer] [facility] Address [address] [place] [address] Assessment Encounter Date Assessment Date Assessment LastModified [...] or scraping, cervical or vaginal 2023 024 [place] [facility], [address] [place] [address], [place], [address], 4 15:08:16 test, urine [address], [place], [address], 4 10:30:47 Referral neurologist referral - WHITNEY 2023 024 DARCIE Ceron MD, [address] [place] [address] [address], [place], [address], 4 11:40:31 gynecologis t referral - first avail. pt needs pap and wants to see why shes not getting 2023 024 [email or web address] Sherri Lanier DO, [address], [place], [address], 11:08:24 Procedures None recorded. Surgeries None recorded. Imaging None recorded. Medication Orders valproic acid 250 mg capsule 2023 025 [facility], [address] [place] [address], [id number], 13:37:30 sertraline 25 mg tablet 2023 024 [facility], [address] [place] [address], [id number], 17:38:45 amoxicillin 875 mg-potassiu m clavulanate 125 mg tablet 2023 024 [facility], [address] [place] [address], [id number], 11:35:13 Patient Targets Encounter Date Encounter Id Patient Goals Patient Target Last Modified By Organization Details Last Modified Time 02/07/2024 [id number] Continue care with PCP. Apply for SNAP benefits with [employer] office. Not available 02/07/2024 08:38:57 Patient Instructions Encounter Date Encounter Id Patient Instructions Last Modified By Organization Details Last Modified Time 02/07/2024 [id number] Patient was referred to me by PCP [...] for follow up if needed. 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 [...] test, urine HCG negati ve Not Available [address], [address], 01/25/2024 10:20:21 04/08/20 24 04/10/2024 IGP,C TNGRF XCOBA SHPV1 6/18A LLPTH chlamydia, nuc. acid amp Negati ve negati ve Not Available [facility] ([facility]) [address] [facility], [place], [address], 04/16/2024 15:08:16 04/08/20 24 04/10/2024 IGP,C TNGRF XCOBA SHPV1 6/18A LLPTH gonococcus, nuc. acid amp Negati ve negati ve Not Available [facility] ([facility]) [address] [facility], [place], [address], 04/16/2024 15:08:16 04/08/20 24 04/16/2024 IGP,C TNGRF XCOBA SHPV1 6/18A LLPTH diagnosis: Commen t NEGAT PEDRO LUIS FOR INTRA EPITH ELIAL LESIO N OR MALCRISTHIAN ARAIZA . Not Available [facility] ([facility]) [address] [facility], [place], [address], 04/16/2024 15:08:16 04/08/20 24 04/16/2024 IGP,C TNGRF XCOBA SHPV1 6/18A LLPTH specimen adequacy: Commen t Satis facto ry for evalu ation . No endoc ervic al compo nent is ident ified . Not Available [facility] ([facility]) [address] [facility], [place], [address], 04/16/2024 15:08:16 04/08/20 24 04/16/2024 IGP,C TNGRF XCOBA SHPV1 6/18A LLPTH clinician provided ICD10: Yesika morocho Z01.4 19 Not Available [facility] ([facility]) [address] [facility], [place], [address], 04/16/2024 15:08:16 04/08/20 24 04/16/2024 IGP,C TNGRF XCOBA SHPV1 6/18A LLPTH performed by: Yesika Lawson ams, Ria morocho (ASCP ) Not Available [facility] ([facility]) [address] [facility], [place], [address], 04/16/2024 15:08:16 04/08/20 24 04/16/2024 IGP,C TNGRF XCOBA SHPV1 6/18A LLPTH . . Not Available [facility] ([facility]) [address] [facility], [place], [address], 04/16/2024 15:08:16 04/08/20 24 04/16/2024 IGP,C TNGRF [...] ts do occur . Not Available [facility] ([facility]) [address] [facility], [place], [address], 04/16/2024 15:08:16 04/08/20 24 04/16/2024 IGP,C TNGRF XCOBA SHPV1 6/18A LLPTH test methodology: Yesika morocho This liqui d based ThinP rep(R ) pap test was scree wilber with the use of an image guide d syste m. Not Available [facility] ([facility]) [address] [facility], [place], [address], 04/16/2024 15:08:16 04/08/20 24 04/16/2024 IGP,C TNGRF XCOBA SHPV1 6/18A LLPTH . Commen t The HPV DNA refle x crite dane were not met with this speci men resul t there fore, no HPV testi ng was perfo rmed. Not Available [facility] ([facility]) [address], [place], [address], 04/16/2024 15:08:16 04/06/20 24 04/06/2024 CT, head + brain , w/o contr ast No observ ation record ed. [address], [place], [address], 07/15/2024 15:16:56 04/06/20 24 04/06/2024 XR, chest , 1 view No observ ation record ed. [address], [place], [address], 07/15/2024 15:17:24 04/06/20 24 04/06/2024 elect rocar diogr am No observ ation record ed. [address], [place], [address], 07/15/2024 15:17:51 04/14/20 24 04/14/2024 XR, chest , 1 view No observ ation record ed. [address], [place], [address], 07/15/2024 15:18:10 04/15/20 24 04/14/2024 elect rocar diogr am No observ ation record ed. [address], [place], [address], 07/15/2024 15:18:32 05/22/19 25 05/22/2024 MRI, brain + brain stem, w/o contr ast No observ ation record ed. [address] Registration [address] [facility] [place], [address], 07/15/2024 15:20:08 06/02/19 25 05/22/2024 elect rocar diogr am No observ ation record ed. [address] Registration [address] [facility] [place], [address], 07/15/2024 15:20:40 06/07/19 25 05/22/2024 casper nuous EEG monit orienmanuel , briseida ssion al compo nent; 12-26 hrs, with VEEG (PROC ) No observ ation record ed. [address] Registration [address] [facility] [place], [address], 07/15/2024 15:21:18 06/08/19 25 06/05/2024 elect rocar diogr am No observ ation record ed. [address], [address], 07/15/2024 15:21:48 07/19/19 25 07/18/2024 elect rocar diogr am No observ ation record ed. [address], [address], 07/19/2024 08:58:08 07/21/19 25 07/19/2024 casper nuous EEG monit orienmanuel , briseida ssion al compo nent; 12-26 hrs, with VEEG (PROC ) No observ ation record ed. [address] (Registration ) [address] [place] [address] [place], [address], 07/21/2024 08:53:44 Result Notes None recorded. Problems Name Problem SNOMED Code Status Onset Date Resolution Date Notes Provider Name and Address Organization Details Recorded Time Acute pharyngi tis 726431939 Completed 201607/15/2016 Problem Code: J02.8; Problem Code Type: ICD-10; Not Available [facility] 2 22:10:34 Acute laryngop haryngit is 66971051 Completed 201605/30/2016 Problem Code: J06.0; Problem Code Type: ICD-10; Not Available [facility] 2 22:10:34 Acute upper respirat ory infectio n of multiple sites Completed 201605/30/2016 Problem Code: 465.8; Problem Code Type: ICD-9; Not Available [facility] 2 22:10:38 Cough 85926591 Completed 201605/30/2016 Problem Code: R05; Problem Code Type: ICD-10; Not Available [facility] 2 22:10:38 Acute sinusiti s 83306769 Completed 201607/27/2016 Problem Code: J01.90; Problem Code Type: ICD-10; Not Available [facility] 2 22:10:33 Infectiv e pneumoni a 638114568 Completed 201610/15/2016 Problem Code: J16.8; Problem Code Type: ICD-10; Not Available [facility] 2 22:10:34 Pneumoni a 274327761 Completed 201610/15/2016 Problem Code: 483.8; Problem Code Type: ICD-9; Not Available [facility] 2 22:10:38 Allergic rhinitis caused by pollen 00559569 Completed 201610/24/2016 Problem Code: J30.1; Problem Code Type: ICD-10; Not Available [facility] 2 22:10:34 Wheezing 69392778 Completed 201610/24/2016 Problem Code: R06.2; Problem Code Type: ICD-10; Not Available [facility] 2 22:10:35 Constipa tion 45065800 Completed 201612/05/2019 Not Available [facility] 2 22:10:34 Seasonal allergic rhinitis 255638893 Completed 201612/15/2016 Problem Code: J30.2; Problem Code Type: ICD-10; Not Available [facility] 22:10:37 Allergic rhinitis caused by pollen 15533323 Completed 201612/15/2016 Problem Code: 477.0; Problem Code Type: ICD-9; Not Available [facility] 22:10:39 Acute maxillar y sinusiti s 18985291 Completed 201604/14/2017 Problem Code: J01.01; Problem Code Type: ICD-10; Not Available [facility] 22:10:33 Cough 45096645 Completed 201602/27/2017 Problem Code: R05; Problem Code Type: ICD-10; Not Available [facility] 22:10:35 Disorder of upper respirat ory system 345688569 Completed 201708/20/2017 Problem Code: J06.9; Problem Code Type: ICD-10; Not Available [facility] 22:10:37 Acute upper respirat ory infectio n 81414396 Completed 201708/20/2017 Problem Code: 465.9; Problem Code Type: ICD-9; Not Available [facility] 22:10:40 Acute sinusiti s 00003825 Completed 201702/19/2018 Problem Code: J01.90; Problem Code Type: ICD-10; Not Available [facility] 22:10:36 Disorder of tongue 56162633 Completed 201705/26/2018 Problem Code: K14.9; Problem Code Type: ICD-10; Not Available [facility] 22:10:34 Glossody tanmay 01288788 Completed 201705/26/2018 Problem Code: 529.6; Problem Code Type: ICD-9; Not Available [facility] 22:10:39 Acute suppurat pedro luis otitis media 181722404 Active 2018 Not Available [facility] 22:10:33 Acute laryngop haryngit is 78537317 Completed 201804/11/2019 Problem Code: J06.0; Problem Code Type: ICD-10; Not Available [facility] 2 22:10:34 Acute laryngop haryngit is 58647266 Active 2018 Problem Code: J06.0; Problem Code Type: ICD-10; Not Available [facility] 2 22:10:34 Acute sinusiti s 99917467 Active 2018 Problem Code: J01.90; Problem Code Type: ICD-10; Not Available [facility] 2 22:10:33 Acute maxillar y sinusiti s 45897004 Active 2018 Problem Code: J01.00; Problem Code Type: ICD-10; Not Available [facility] 2 22:10:33 Cough 35631524 Active 2018 Problem Code: R05; Problem Code Type: ICD-10; Not Available [facility] 2 22:10:35 Moderate recurren t major depressi on 17585112 Active 2019 Problem Code: F33.1; Problem Code Type: ICD-10; Not Available [facility] 2 22:10:33 Generali zed anxiety disorder 29801743 Active 2019 Problem Code: F41.1; Problem Code Type: ICD-10; Not Available [facility] 2 22:10:33 Recurren t major depressi ve episodes , moderate 340505110 Active 2019 Problem Code: 296.32; Problem Code Type: ICD-9; Not Available [facility] 2 22:10:39 Acute lymphade nitis of face, head and neck Active 2019 Problem Code: L04.0; Problem Code Type: ICD-10; Not Available [facility] 2 22:10:35 General examinat ion of patient Active 2019 Not Available [facility] 2 22:10:36 Acute sinusiti s 94818311 Completed 201909/20/2021 Problem Code: J01.90; Problem Code Type: ICD-10; Not Available [facility] 2 22:10:34 Uses combined oral contrace ption 948581556 Active 2019 Problem Code: Z30.011; Problem Code Type: ICD-10; Not Available [facility] 2 22:10:37 Headache 79010690 Completed 201909/20/2021 Problem Code: R51; Problem Code Type: ICD-10; Not Available [facility] 2 22:10:36 Amenorrh ea 00817112 Active 2020 Problem Code: N91.2; Problem Code Type: ICD-10; Not Available [facility] 2 22:10:35 Increase d frequenc y of urinatio n 020918159 Active 2020 Problem Code: R35.0; Problem Code Type: ICD-10; Not Available [facility] 22:10:35 Syphilis test finding 450175056 Active 2020 Problem Code: Z11.3; Problem Code Type: ICD-10; Not Available [facility] 2 22:10:36 Irregula r periods 08989042 Active 2020 Not Available [facility] 2 22:10:35 Body mass index 30+ - obesity 623645538 Active 2021 Problem Code: Z68.36; Problem Code Type: ICD-10; Not Available [facility] 2 22:10:37 Purpuric rash 212627817 Active [address], [address] , [employer] 4 14:51:12 Seizure 88087272 Active [address], [address] , [employer] 4 14:51:40 Problem Notes None recorded. Procedures Surgical History Date Name Laterality Status Provider Name and Address Organization Details Recorded Time 04/08/2025 Date of Last Pap Smear completed AROLDO BRIZUELA [employer] 04/18/2024 10:38:15 Imaging Results None recorded. [...] (BMI) Body weight Heart rate Oxygen saturation Systolic And Diastolic Provider Name and Address Organization Details Last Updated DateTime 5 160.02 cm 38 kg/m2 54718.9 2 g 79 /min 99 % 121/87 mm[Hg] AROLDO BRIZUELA [facility] [employer] [facility]. 5 14:14:04 Date Recorded Body height Body mass index (BMI) Body weight Heart rate Oxygen saturation Systolic And Diastolic Provider Name and Address Organization Details Last Updated DateTime 4 160.02 cm 37.6 kg/m2 93566.5 8 g 79 /min 98 % 114/76 mm[Hg] Gayle Jacques [employer] 4 10:20:06 Date Recorded Body height Body mass index (BMI) Body weight Heart rate Oxygen saturation Systolic And Diastolic Provider Name and Address Organization Details Last Updated DateTime 4 160.02 cm 37.3 kg/m2 25377.5 5 g 77 /min 96 % 110/72 mm[Hg] AROLDO BRIZUELA [employer] 4 13:13:38 Date Recorded Body height Body mass index (BMI) Body weight Heart rate Oxygen saturation Body temperature Systolic And Diastolic Provider Name and Address Organization Details Last Updated DateTime 4 160.02 cm 37.6 kg/m2 60117.9 8 g 80 /min 98 % 97.8 [degF] 120/77 mm[Hg] Angela Noemi [employer] 4 13:50:38 Social History Question Answer Notes LastModified by Organizat ion Details LastModified Time Tobacco Smoking Status Never Smoker Salina bhatt [employer] 01/09/2023 09:37:20 Do You Have An Advance Directive? No [email or web address] Information n ot available 09/12/2023 Is Your [...] Have You Used? Marijuana Information not available 09/12/2023 Who Is Your Employer? [employer] [email or web address] Information not available 09/12/2023 Have There Been Any Changes To Your Family Or Social Situation? No Information no t available 12/01/2022 Are There Any Guns Present In Your Home? No Information not available 05/29/2024 Do You Have A Medical Power Of Bottom Stop Attacher? No [email or web address] Information not available 09/12/2023 What Was The [...] Are You Passively Exposed To Smoke? Yes [email or web address] Information no t available 05/29/2024 Are There Any Smokers In Your House? Yes [email or web address] Information not available 05/29/2024 Do You Participate [...] 12/01/2022 Are You Currently In School? No [email or web address] Information not available 09/12/2023 Do You Have Any Dietary Restrictions? No Information not available 04/18/2024 Sex: Female Functional Status Question Answer Note LastModified by Organizat ion Details LastModified Time Do you use any illicit or recreational drugs? Yes [email or web address] Information not available 09/12/2023 Do you or have you ever used any other forms of tobacco or nicotine? No [email or web address] Information not available 09/12/2023 What is your level of alcohol consumption? None Information not available 12/01/2022 Are you currently employed? Yes [email or web address] Information not available 09/12/2023 Do you have [...] anxious, or unable to sleep at night)? [id number] Information not available 04/18/2024 Do you have difficulty concentrating, remembering or making decisions? No Information no t available 12/01/2022 Family History Relationship Description Onset Age of this Age Resolved Age Notes LastModified by Organization Details LastModified Time Unspecified Relation Family history of drug abuse Relati ve: ''; [email or web address] Not available 09/12/2023 14:22:21 Unspecified Relation Family history of diabetes mellitus type 2 Relati ve: ''; [email or web address] Not available 09/12/2023 14:22:21 Unspecified Relation Family history of Hypertension Relati ve: ''; [email or web address] Not available 09/12/2023 14:22:21 Unspecified Relation Family history of alcoholism Relati ve: ''; [email or web address] Not available 09/12/2023 14:22:21 Mother Anxiety disorder [email or web address] Not available 05/2023 14:22:21 Mother Depressive disorder [email or web address] Not available 05/2023 14:22:21 Mother Arthritis [email or web address] Not avai lable 09/12/2023 14:22:21 Mother Hypertensive disorder [email or web address] Not available 05/2023 14:22:21 Sister Hypercholest erolemia [email or web address] Not available 05/2023 14:22:21 Sister Anxiety disorder [email or web address] Not available 05/2023 14:22:21 Sister Depressive disorder [email or web address] Not available 05/2023 14:22:21 Sister Hypertensive disorder [email or web address] Not available 05/2023 14:22:21 Father Hypercholest erolemia [email or web address] Not available 05/2023 14:22:21 Father Harmful pattern of use of alcohol [email or web address] Not available 05/2023 14:22:21 Father Arthritis [email or web address] Not avai lable 09/12/2023 14:22:21 Father Hypertensive disorder [email or web address] Not available 05/2023 14:22:21 Notes:*Procedure Description : Documented family medical history in mother*Relative: Mother *Procedure Description: Documented family medical history in father*Relative: Father Medical History Condition Response Allergies (Food, seasonal, environmental ) Y Anxiety Disorder Y Obesity Y Bladder or Kidney Problems Y Depression/ depression Y Hospitalizations N Acid Reflux (GERD) Y Emergency room visit since last appointm ent. N Depression Y Gynecological History Statement/Question Response Sexually Active? [...] Hib, unspecified formulation 8 completed AROLDO bhatt [employer] 04/07/2024 13:01:51 Hib, unspecified formulation 0 completed AROLDO bhatt [employer] 04/07/2024 13:01:51 Hib, unspecified formulation 8 completed AROLDO bhatt [employer] 04/07/2024 13:01:51 Hib-Hep B 9 completed AROLDO BRIZUELA null, [employer] 04/07/2024 13:01:51 IPV 8 completed AROLDO BRIZUELA [employer], [employer] 04/07/2024 13:01:51 IPV 0 completed AROLDO BRIZUELA [employer], [employer] 04/07/2024 13:01:51 IPV 2 completed AROLDO BRIZUELA [employer], [employer] 04/07/2024 13:01:51 IPV 8 completed AROLDO BRIZUELA [employer], [employer] 04/07/2024 13:01:51 MMR 0 completed AROLDOTAQUERIA BRIZUELA [employer], [employer] 04/07/2024 13:01:51 MMR 2 completed AROLDO [employer], [employer] 04/07/2024 13:01:51 COVID-19, mRNA, LNP-S, PF, 100 mcg/0.5mL dose or 50 mcg/0.25mL dose 1 completed AROLDO [employer], [employer] 04/07/2024 13:01:51 COVID-19 vaccine, vector-nr, rS-Ad26, PF, 0.5 mL 1 completed AROLDO BRIZUELA [employer] 04/07/2024 13:01:51 Tdap 0 completed AROLDOTAQUERIA BRIZUELA [employer], [employer] 04/07/2024 13:01:51 varicella 2 completed AROLDO BRIZUELA [employer], [employer] 04/07/2024 13:01:51 HPV, quadrivalent 0 completed AROLDOTAQUERIA BRIZUELA [employer], [employer] 04/07/2024 13:01:51 Hep B, adolescent or pediatric 8 completed AROLDO [employer], [employer] 04/07/2024 13:01:51 DTaP, unspecified formulation 9 completed AROLDO bhatt, [employer] 04/07/2024 13:01:51 DTaP, unspecified formulation 3 completed AROLDO bhatt, [employer] 04/07/2024 13:01:51 DTaP, unspecified formulation 8 completed AROLDO bhatt, [employer] 04/07/2024 13:01:51 DTaP, unspecified formulation 0 completed AROLDO bhatt, [employer] 04/07/2024 13:01:51 DTaP, unspecified formulation 8 completed AROLDO bhatt, [employer] 04/07/2024 13:01:52 meningococcal MCV4, unspecified formulation 0 юлия bhatt, [employer] 04/07/2024 13:01:52 Past Encounters Encounter ID Performer Location Encounter Start Date Encounter Closed Date Diagnosis/Indication Diagnosis SNOMED-CT Code Diagnosis ICD10 Code Diagnosis IMO Codes Diagnosis Note [id number] [place] [phone] 2022 11:29:07 2022 12:03:41 Cyst of skin 234949726 L72.9 Moderate r ecurrent major depression 55822296 F33.1 Allergic rhinitis 463754 04 J30.9 Body mass index 30+ - obesity 244229912 Z68.[id number] [address] 12/01/2022 13:07:36 12/01/2022 13:43:25 Major depressive disorder 923248165 F32.9 Gastroesop hageal reflux disease without esophagitis 763744832 K21.9 Body mass index 30+ - obesity 169285421 Z68.37 [id number] Neetu Templeton [address] [address] 01/09/2023 09:20:52 01/09/2023 10:31:47 Pain in throat 139888651 R07.0 Acute otitis media 79538 03 H66.90 Body mass index 30+ - obesity 429550524 Z68.37 [id number] [place] [address] 0 05/17/2023 08:46:32 05/17/2023 09:32:00 Major depressive disorder 031408126 F32.9 Gastroesop hageal reflux disease without esophagitis 429204981 K21.9 Pain in throat 318013611 R07.0 Streptococ chika sore throat 65016747 J02.0 Body mass index 30+ - obesity 845401872 Z68.37 [id number] [place] [address] 0 07/17/2023 14:12:51 07/17/2023 14:25:17 [id number] [place] [address] 0 07/31/2023 13:26:44 07/31/2023 14:17:25 Fever 311777864 R50.9 Screening for malignant neoplasm of cervix declined 050003191 Z53.20 Influenza caused by Influenza B virus 19239828 J10.1 COVID-19 019279608 U07.1 Body mass index 30+ - obesity 608820004 Z68.37 [id number] [place] [address] 0 09/12/2023 14:15:11 09/12/2023 15:14:50 Purpuric rash 025912976 D69.2 Seizure 03941998 R56.9 [id number] [place] [address] 0 01/25/2024 09:51:11 01/25/2024 10:46:32 Amenorrhea 40689418 N91.2 Acute sinusitis 70061511 J01.90 Female infertility 89556 08 N97.9 Body mass index 30+ - obesity 231356651 Z68.37 [id number] Neetu Templeton [place] [address] 0 02/07/2024 08:37:03 02/07/2024 08:43:55 Finding related to health literacy 856131209 Z55.6 Food insecurity 31480403 3 Z59.41 [id number] Miguel Ayoub CNM [address],[place] [address] 04/07/2024 13:01:06 04/07/2024 15:22:22 Gynecologic examination 14808185 Z01.419 Breast lump 17222518 N63 .0 Pt to assess this again in 4-6 wks, if still present, pt to RTC for US of this [id number] Neetu Temple[place] [address] 0 04/18/2024 13:28:10 04/18/2024 14:35:39 Major depressive disorder 710905210 F32.9 Seizure disorder 6215952 02 G40.909 Body mass index 30+ - obesity 275290869 Z68.37 [id number] Miguel Ayoub CNM [address] e [address] 7 05/29/2024 14:00:38 05/29/2024 14:38:24 Fibrocystic changes of bilateral breasts 3981613650 9540619 N60.11 N60.12 Discussed appears to be fibrocysti [...] 1 *SELF PAY* Elliot Yap 01/08/2025 1 [facility] (MEDICAID HMO) Ryland Yap [id number] Ly Yap 01/06/2025 [place] [facility] WRAP BILLING (MEDICAID) Ryland Yap [id number] Ly Yap Notes Date Note Type Note [...] for worsening symptoms. Neetu Templeton APRN [address] [place], [address], [employer] 01/25/2024 10:44:57 04/07/2024 text/html Annual GYNReport ed [...] as pt desires. Miguel Ayoub CNM [address] [place], [address], [employer]. 04/07/2024 15:17:38 04/18/2024 text/html pt here today [...] pt voiced understanding. Neetu Templeton APRN [address] [place], [address], [employer] 04/18/2024 15:29:10 05/29/2024 text/html ROS as noted in the HPI Pt scheduled today with c/o previous right breast mass. States it did get larger, but smaller now. Not fixed, it is movable. no pain or skin changes Miguel Ayoub CNM [address] [place], [address], [employer] 05/29/2024 14:30:34 OBGyn Episode No OBEpisode recorded.
--- OUTSIDE RECORDS SUMMARY | 2025-04-06 12:01 | XMS_ITS | Encounter Summary ---
Author Organization Healthcare Address [address] [place] [address] Care Team Providers Care Supervisor Rework Name Role Phone Neetu Templeton APRN Primary Care Provider [phone] Encounter Details Date Type Department Care Team (Late st Contact Info) Description 02/09/2025 Telephone [facility] [address], [address] [place] [address] Social History Tobacco Use Types Packs/Day Years Used Date Smoking Tobacco: Never Assessed Comments Unknown Sex and Gender Information Value Date Recorded Sex Assigned at Not on file Legal Sex Female 8:30 PM EDT Gender Identity Not on file Sexual Orientation Not on file documented as of this encounter Plan of Treatment Not on file documented as of this encounter Visit Diagnoses Not on filedocumented in this encounter Care Teams Supervisor Rework Relationship Specialty Start Date End Date Neetu Templeton APRN [address] [place] [address] PCP - General 07/31/24 documented as of this encounter
--- OUTSIDE RECORDS SUMMARY | 2025-04-06 12:01 | XMS_ITS | Encounter Summary ---
Author Organization Healthcare Address [address] [place] [address] Care Team Providers Care Construction Millwright Name Role Phone Neetu Templeton APRN Primary Care Provider [phone] Encounter Details Date Type Department Care Team (Late st Contact Info) Description 02/06/2025 Telephone [facility] [address], [address] [place] [address] Social History Tobacco Use Types [...] on filedocumented in this encounter Care Teams Construction Millwright Relationship Specialty Start Date End Date Neetu Templeton APRN [address] [place] [address] PCP - General 07/31/24 documented as of this encounter
--- OUTSIDE RECORDS SUMMARY | 2025-04-06 12:01 | XMS_ITS | Continuity of Care Document ---
[facility] Address [address] [place] [address] Assessment No assessment recorded. Plan of Treatment Reminders Order Date Submit Date Provider Last Modified By Organization Details Last Modified Time Details Appointments None recorded. Lab None recorded. Referral None recorded. Procedures None recorded. Surgeries None recorded. Imaging None recorded. Medication Orders nystatin 100,000 unit/mL oral suspension 2024 025 [employer], [address] [place], [place], [id number], 05:01:58 Patient TargetsNo targets recorded. Patient InstructionsNo instructions recorded. Reason for Referral None Reported. Results Created Date Observation Date Name Description Value Unit Range Abnormal Flag Note LastModifiedBy Organization Detail LastModifiedTime 01/09/2001/08/2025 pregn nasrin test, urine HCG negati ve Not Available [address], [address], 01/08/2025 11:30:01 03/02/2002/26/2025 MAMMO , diagn ostic , digit al, bilat eral No observ ation record ed. [facility] [address], [place], [address], 03/13/2025 13:27:24 03/02/20 25 02/26/2025 US, breas t, unila teral , compl ete No observ ation record ed. [facility] [address], [place], [address], 03/13/2025 08:48:18 03/16/20 25 03/13/2025 maia manuel echoc ardio gram with doppl er color flow (PROC ) No observ ation record ed. [facility] [address], [place], [address], 03/16/2025 08:18:31 Result Notes None recorded. Problems Name Problem SNOMED Code Status Onset Date Resolution Date Notes Provider Name and Address Organization Details Recorded Time Mixed anxiety and depressive disorder 163676044 Active 025 Katherine Yany [place] - [facility] 14:36:57 Problem Notes None recorded. Medical Equipment None Reported. Allergies No known drug allergies Medications Name Sig Start Date Stop Date Status Note LastModified by Organization Details LastModified Time nystatin 100,000 unit/mL oral suspension Take 5 mL 4 times a day by oral route for 14 days. 02/09 completed Not Available Not Available Not Available doxycycline hyclate 100 mg capsule Take 1 capsule twice a day by oral route for 7 days. 2024 active Not Available Not Available Not Avai lable azithromyci n 250 mg tablet TAKE 2 [...] No t Available sertraline 25 mg tablet Take 1 tablet every day by oral route. 2024 active Not Available Not Available Not Avai lable oxcarbazepi ne 600 mg tablet TAKE 1 [...] propionate 50 mcg/actuati on nasal spray,suspe nsion [employer] 1 spray every day by intranasa l route. 2024 active Not Available Not Available Not Avai lable amoxicillin 875 mg-potassiu m clavulanate 125 mg tablet TAKE 1 TABLET EVERY 12 HOURS FOR 7 DAYS 01/08 completed Not Available Not Available Not Available oxycodone 5 mg tablet TAKE 1 TABLET EVERY 8 HOURS NEEDED FOR PAIN 04/02 completed Not Available Not Available Not Available Valtoco 20 mg/2 spray (10mg/0.1mL x2) nasal spray SPRAY THE CONTENTS OF 1 SPRAY DEVICE INTO BOTH NOSTRILS NEEDED FOR SEIZURE active Not Available Not Available No t Available Vitals Date Recorded Body height Body mass index (BMI) Body weight Heart rate Oxygen saturation Respiratory rate Body temperature Systolic And Diastolic Provider Name and Address Organization Details Last Updated DateTime 160.02 cm 39.1 kg/m2 588062. 91 g 90 /min 98 % 18 /min 97.8 [degF] 134/80 mm[Hg] Katherine Stears [place] - [facility] 14:35:56 Social History Question Answer Notes LastModified by Organizat ion Details LastModified Time Tobacco Smoking Status Never Smoker Marjan bhatt, [place] - [facility] 01/08/2025 11:05:13 Do [...] Or The Highest Degree You Have Received? BP57330-3 Information not available 01/08/2025 How Many Years [...] Sunscreen Routinely? No Information not available 01/08/2025 Has Tobacco Cessation Counseling Been Provided? 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 Never used electronic cigarettes Information not available 01/08/2025 What is your exercise level? None Information not available 01/08/2025 Mental Status Question Answer Note LastModified by Organization D etails LastModified Time Do you feel stressed (tense, restless, nervous, or anxious, or unable to sleep at night)? [id number] Information not available 01/08/2025 Family History Relationship [...] available 2024 11:05:04 Medical History Condition Response Depression Y Anxiety Disorder Y Obesity Y Acid Reflux (GERD) Y Kidney or Bladder Problems Y Eating Disorder Y Constipation Y Seizures/Epilepsy Y Gynecological History Statement/Question Response Menses Monthly N LMP Approximate Date of LMP 01/01/2025 Obstetrics History GPAL:G 0 P 0 0 0 0 Immunizations Vaccine Type Date Status Note Provider Name and Address Organization Details Recorded Time DTaP, unspecified formulation 10/14/18 98 completed Not Available [facility] 04/02/2025 14:51:11 IPV 10/14/18 98 completed Not Available [facility] 04/02/2025 14:51:11 Hib, unspecified formulation 10/14/18 98 completed Not Available [facility] 04/02/2025 14:51:11 DTaP, unspecified formulation 01/20/19 98 completed Not Available [facility] 04/02/2025 14:51:11 IPV 01/20/19 98 completed Not Available [facility] 04/02/2025 14:51:11 Hib, unspecified formulation 01/20/19 98 completed Not Available [facility] 04/02/2025 14:51:11 Hep B, adolescent or pediatric 01/20/19 98 completed Not Available [facility] 04/02/2025 14:51:11 DTaP, unspecified formulation 09/01/18 99 completed Not Available [facility] 04/02/2025 14:51:11 Hib-Hep B 09/01/18 99 completed Not Available [facility] 04/02/2025 14:51:11 DTaP, unspecified formulation 11/02/19 00 completed Not Available [facility] 04/02/2025 14:51:11 MMR 11/02/19 00 completed Not Available [facility] 04/02/2025 14:51:11 IPV 11/02/19 00 completed Not Available [facility] 04/02/2025 14:51:11 Hib, unspecified formulation 11/02/19 00 completed Not Available [facility] 04/02/2025 14:51:11 MMR 11/16/19 02 completed Not Available [facility] 04/02/2025 14:51:11 IPV 11/16/19 02 completed Not Available [facility] 04/02/2025 14:51:11 varicella 11/16/19 02 completed Not Available [facility] 04/02/2025 14:51:11 DTaP, unspecified formulation 09/06/19 03 completed Not Available [facility] 04/02/2025 14:51:11 HPV, quadrivalent 12/29/19 10 completed Not Available [facility] 04/02/2025 14:51:11 meningococcal MCV4, unspecified formulation 12/29/19 10 completed Not Available [facility] 04/02/2025 14:51:11 Tdap 12/29/19 10 completed Not Available [facility] 04/02/2025 14:51:11 COVID-19 vaccine, vector-nr, rS-Ad26, PF, 0.5 mL 12/10/19 21 completed Not Available [facility] 04/02/2025 14:51:11 COVID-19, mRNA, LNP-S, PF, 100 mcg/0.5mL dose or 50 mcg/0.25mL dose 05/05/20 21 completed Not [facility] 04/02/2025 14:51:11 Tdap 01/20/20 25 cancelled patient objection Claire Jade APRN [address], [place], [address], [place] - [facility] 01/19/2025 15:32:10 Past Encounters Encounter ID Performer Location Encounter Start Date Encounter Closed Date Diagnosis/Indication Diagnosis SNOMED-CT Code Diagnosis ICD10 Code Diagnosis IMO Codes Diagnosis Note [id number] Claire Jade APRN [address] [address] 01/08/2025 10:54:34 01/08/2025 12:07:27 Obese class II 7510250561 96563 E66.812 Z68.39 7358601 39.9 Acute maxi llary sinusitis 36950468 J01.00 79021179 tylenol or motrin as neededflon ase dailyantib iotics as ordered Discharge from nipple 54 537822 N64.52 [id number] Claire Jade APRN [address] [address] 01/19/2025 14:15:27 01/19/2025 14:57:51 HIV screening declined 6932317920 40446 Z53.20 5411724571 Hepatitis C screening declined 4130285611 5105 Z53.20 1493261574 Tetanus di phtheria and acellular pertussis vaccination declined 4250246798 1564367 Z28.21 2086226191 Screening for malignant neoplasm of cervix declined 528136671 Z53.20 3788097852 Candidiasis of mouth 797 50451 B37.0 867171 Health Concerns Section Related Observation LastModified by Organization Detai ls LastModified Time None Recorded Concern Status LastModified by Organization Details LastModified Time None Recorded Payers Encounter Date Sequence Insurance Name Policy Number Policy Morrison Covered Member ID Morrison Member ID Guarantor Name 01/19/2025 1 [facility] (MEDICAID HMO) Ryland Yap [id number] Ryland Yap Notes Date Note Type Note Provider Name and Address Organization Details Recorded Time 01/19/2025 text/html ROS as noted in the HPI 29 year old female who presents to the office today with concerns ofpainful white patches in mouth, throat feels numb. can peel skin from mouth Claire Jade, PLANTING MATERIAL CARRIER [address], [place], [address], [place] - [facility] 01/19/2025 15:32:14 OBGyn Episode No OBEpisode recorded.
--- OUTSIDE RECORDS SUMMARY | 2025-04-06 12:01 | XMS_ITS | Encounter Summary ---
Author Organization Healthcare Address [address] [place] [address] Care Team Providers Care Set Up Mechanic Stamping Machines Name Role Phone Neetu Templeton APRN Primary Care Provider [phone] Encounter Details Date Type Department Care Team (Latest Contact Info) Description 03/30/2025 Travel Social History Tobacco Use Types Packs/Day Years [...] Health Questionnaire-2 Score 3 03/30/2025 1:54 PM Ernestine Krause * Question Answer Date of Assessment [...] Diagnoses Not on filedocumented in this encounter Additional Health Concerns Assessment Noted Time PHQ-9 Depression Total Score: 14 025 1:54 PM EST A fall risk assessment has been complete d for the patient 03/30/2025 1:54 PM EST documented as of this encounter Care Teams Set Up Mechanic Stamping Machines Relationship Specialty Start Date End Date Neetu Templeton APRN [address] [place] [address] PCP - General 07/31/24 documented as of this encounter
--- OUTSIDE RECORDS SUMMARY | 2025-04-06 12:01 | XMS_ITS | Encounter Summary ---
Author Organization Healthcare Address [address] [place] [address] Care Team Providers Care Photographic Laboratory Supervisor Name Role Phone Jareth Neetu FRIEND Primary Care Provider Encounter Details Date Type Department Care Team (Late st Contact Info) Description 02/26/2025 Orders Only External Location [address] [place] [address] Provider, External Social History Tobacco Use Types Packs/Day Years [...] Associated Diagnosis Comments US BREAST OUTSIDE IMAGES 02/26/2025 2:04 PM EDT documented in this encounter Results * US BREAST OUTSIDE IMAGES (02/26/2025 2:04 PM EDT) Anatomical Region Laterality Modality Breast Mammography 02/26/2025 2:04 PM EDT us External Provider IMG BI PROCEDURES Edited Resul t - Final documented in this encounter Visit Diagnoses Not on filedocumented in this encounter Care Teams Photographic Laboratory Supervisor Relationship Specialty Start Date End Date Neetu Templeton APRN [address] [place] [address] PCP - General 07/31/24 documented as of this encounter
--- OUTSIDE RECORDS SUMMARY | 2025-04-06 12:01 | XMS_ITS | Encounter Summary ---
Author Organization Healthcare Address [address] [place] [address] Care Team Providers Care Dupligraph Operator Name Role Phone Neetu Templeton APRN Primary Care Provider [phone] Encounter Details Date Type Department Care Team (Late st Contact Info) Description 02/18/2025 Telephone [facility] [address], [address] [place] [address] System, Provider Not In, [address] [place] [address] Social History Tobacco Use Types Packs/Day Years [...] on filedocumented in this encounter Care Teams Dupligraph Operator Relationship Specialty Start Date End Date Neetu Templeton APRN [address] [place] [address] PCP - General 07/31/24 documented as of this encounter
--- OUTSIDE RECORDS SUMMARY | 2025-04-06 12:01 | XMS_ITS | Data Portability ---
Author Organization [facility] access hospital Address [address] [place] [phone] Assessment No assessment recorded. Plan of Treatment Reminders Order Date Submit Date Provider Last Modified By Organization Details Last Modified Time Details Appointments None recorded. Lab test, urine 2024 [facility], [address] [place] [address], [id number], 11:31:53 Referral sleep medicine referral 2024 [facility], [address], [place], [address], 09:00:58 Procedures None recorded. Surgeries None recorded. Imaging MAMMO, diagnostic , digital, bilateral 2024 025 [facility] (Scheduling), [address], [place], [address], 09:54:40 US, breast, unilateral , complete - left 2024 025 [facility] (Scheduling), [address], [place], [address], 09:55:59 Medication Orders fluticason e propionate 50 mcg/actuat ion nasal spray,susp ension 2024 025 [facility], [address] [place] [address], [id number], 5 14:39:45 doxycyclin e hyclate 100 mg capsule 2024 025 [facility], [address] [place] [address], [id number], 5 14:39:44 sertraline 25 mg tablet 2024 [facility] [address] [place] [address], [id number], 5 14:39:46 nystatin 100,000 unit/mL oral suspension 2024 [facility], [address] [place] [address], [id number], 5 05:01:58 fluticason e propionate 50 mcg/actuat ion nasal spray,susp ension 2024 [facility], [address] [place] [address], [id number], 15:17:50 doxycyclin e hyclate 100 mg capsule 2024 025 [facility], [address] [place] [address], [id number], 14:39:12 Patient TargetsNo targets recorded. Patient Instructions Encounter Date Encounter Id Patient Instructions Last Modified By Organization Details Last Modified Time 01/08/2025 [id number] learning about healthy weight efryman Not available 01/08/2025 11:31:53 body mass index: care instructions efryman Not available 01/08/2025 11:31:53 Reason for Referral Sleep Medicine Referral for Sleep apnea Referring Physician: Claire Jade, Family Medicine, Encounter Date: 04/02/2025 Results Created Date Observation Date Name Description Value Unit Range Abnormal Flag Note LastModifiedBy Organization Detail LastModifiedTime 01/09/2001/08/2025 pregn nasrin test, urine HCG negati ve Not Available [facility] [address], [place], [address], 01/08/2025 11:30:01 03/02/20 25 02/26/2025 MAMMO , diagn ostic , digit al, bilat eral No observ ation record ed. [facility] [address], [place], [address], 03/13/2025 13:27:24 03/02/20 25 02/26/2025 US, breas t, unila teral , compl ete No observ ation record ed. [facility] [address], [place], [id number], 03/13/2025 08:48:18 03/16/2003/13/2025 stres s echoc ardio gram with doppl er color flow (PROC ) No observ ation record ed. [facility] [address], [place], [address], 03/16/2025 08:18:31 Result Notes None recorded. Problems Name Problem SNOMED Code Status Onset Date Resolution Date Notes Provider Name and Address Organization Details Recorded Time Mixed anxiety and depressive disorder 524047108 Active 025 [place] - [facility] 14:36:57 [...] propionate 50 mcg/actuati on nasal spray,suspe nsion [place] 1 spray every day by intranasa l [...] weight Body temperature Heart rate Oxygen saturation Respiratory rate Pain severity - 0-10 verbal numeric rating [Score] - Reported Systolic And Diastolic Provider Name and Address Organization Details Last Updated DateTime 5 160.02 cm 39.9 kg/m2 257286. 28 g 97 [degF] 98 /min 100 % 18 /min 0 130/78 mm[Hg] Marjan Ellison [place] - [facility] 5 11:14:03 Date Recorded Body height Body mass index (BMI) Body weight Heart rate Oxygen saturation Respiratory rate Body temperature Systolic And Diastolic Provider Name and Address Organization Details Last Updated DateTime 5 160.02 cm 39.1 kg/m2 598433. 91 g 90 /min 98 % 18 /min 97.8 [degF] 134/80 mm[Hg] Katherine Thompsonkaleb [place] - [facility] 5 14:35:56 Date Recorded Body height Body mass index (BMI) Body weight Heart rate Body temperature Oxygen saturation Respiratory rate Pain severity - 0-10 verbal numeric rating [Score] - Reported Systolic And Diastolic Provider Name and Address Organization Details Last Updated DateTime 5 160.02 cm 38.6 kg/m2 92455.1 4 g 83 /min 98.1 [degF] 98 % 18 /min 0 112/60 mm[Hg] Marjan Ellison [place] - [facility] 5 15:13:07 Social History Question Answer Notes LastModified by Organizat ion Details LastModified Time Tobacco Smoking Status Never Smoker Marjan Terra [facility] 01/08/2025 11:05:13 Do You Have An [...] Or The Highest Degree You Have Received? [id number] Information not available 01/08/2025 How Many Years [...] available 01/08/2025 What is your occupation? [employer] j[employer] Information not available 01/08/2025 Do you or have you ever used e-cigarettes or vape? Never used electronic cigarettes Information not available 01/08/2025 What is your exercise level? None Information not available 01/08/2025 Mental Status Question Answer Note LastModified by Organization D etails LastModified Time Do you feel stressed (tense, restless, nervous, or anxious, or unable to sleep at night)? [id number] Information not available 01/08/2025 Family History Relationship [...] unspecified formulation 10/14/18 98 completed Not Available [facility] 04/02/2025 14:51:11 IPV 10/14/18 98 completed Not [facility] 04/02/2025 14:51:11 Hib, unspecified formulation 10/14/18 98 completed Not Available [facility] 04/02/2025 14:51:11 DTaP, unspecified formulation 01/20/19 98 completed Not Available [facility] 04/02/2025 14:51:11 IPV 01/20/19 98 completed Not Available [facility] 04/02/2025 14:51:11 Hib, unspecified formulation 01/20/19 98 completed Not Available [facility] 04/02/2025 14:51:11 Hep B, adolescent or pediatric 01/20/19 98 completed [facility] 04/02/2025 14:51:11 DTaP, unspecified formulation 09/01/18 99 completed Not Available [facility] 04/02/2025 14:51:11 Hib-Hep B 09/01/18 99 completed Not Available [facility] 04/02/2025 14:51:11 DTaP, unspecified formulation 11/02/19 00 completed Not Available [facility] 04/02/2025 14:51:11 MMR 11/02/19 00 completed Not Available [facility] 04/02/2025 14:51:11 IPV 11/02/19 00 completed Not Available [facility] 04/02/2025 14:51:11 Hib, unspecified formulation 11/02/19 completed Not Available [facility] 04/02/2025 14:51:11 MMR 11/16/19 02 completed Not Available [facility] 04/02/2025 14:51:11 IPV 11/16/19 02 completed Not Available [facility] 04/02/2025 14:51:11 varicella 11/16/19 02 completed Not Available [facility] 04/02/2025 14:51:11 DTaP, unspecified formulation 09/06/19 03 completed Not Available [facility] 04/02/2025 14:51:11 HPV, quadrivalent 12/29/19 10 completed Not Available [facility] 04/02/2025 14:51:11 meningococcal MCV4, unspecified formulation 12/29/19 10 completed Not Available [facility] 04/02/2025 14:51:11 Tdap 12/29/19 10 completed Not Available [facility] 04/02/2025 14:51:11 COVID-19 vaccine, vector-nr, rS-Ad26, PF, 0.5 mL 12/10/19 completed Not Available [facility] 04/02/2025 14:51:11 COVID-19, mRNA, LNP-S, PF, 100 mcg/0.5mL dose or 50 mcg/0.25mL dose 05/05/20 completed Not Available [facility] 04/02/2025 14:51:11 Tdap 01/20/20 cancelled patient objection Claire Jade, STRATE[employer]IC [employer]IANCES MANAGER [address], [place], [address], [place] - [facility] 01/19/2025 15:32:10 Past Encounters Encounter ID Performer Location Encounter Start Date Encounter Closed Date Diagnosis/Indication Diagnosis SNOMED-CT Code Diagnosis ICD10 Code Diagnosis IMO Codes Diagnosis Note [id number] Claire Jade [address] [address] 01/08/2025 10:54:34 01/08/2025 12:07:27 Obese class II 3314670736 81412 E66.812 Z68.39 1594452 39.9 Acute maxi llary sinusitis 82737093 J01.00 46156430 tylenol or motrin as neededflon ase dailyantib iotics as ordered Discharge from nipple 54 320440 N64.52 22301 [id number] [facility] [address] 01/19/2025 14:15:27 01/19/2025 14:57:51 HIV screening declined 8587639401 46981 Z53.20 8808182916 Hepatitis C screening declined 3446073929 5105 Z53.20 9071536827 Tetanus di phtheria and acellular pertussis vaccination declined 5605578856 4537477 Z28.21 4575071815 Screening for malignant neoplasm of cervix declined 412746845 Z53.20 1066637469 Candidiasis of mouth 797 65623 B37.0 875619 [id number] [facility] [address] 04/02/2025 14:50:14 04/02/2025 16:03:28 Mixed anxiety and depressive disorder 101728431 F41.9 F32.A 701800 Acute maxi llary sinusitis 89847401 J01.00 44440811 tylenol or motrin as neededflon ase dailyantib iotics as ordered Closed fra cture of right foot 3673117010 8101143 S92.901A 6621560 follow up with ortho Sleep apnea 93335698 G47 .30 12070454 Health Concerns Section Related Observation LastModified by Organization Detai ls LastModified Time None Recorded Concern Status LastModified by Organization Details LastModified Time None Recorded Advance Directives Directive N: Payers Insurance Date Sequence Insurance Name Policy Number Policy Morrison Covered Member ID Morrison Member ID Guarantor Name 03/30/2025 1 [employer] [place] (MEDICAID HMO) Ryland Yap [id number] Ryland Yap 03/30/2025 [place] [employer] [place] Ryland Yap [id number] Ryland Yap Notes Date Note Type Note Provider Name and Address Organization Details Recorded Time 01/08/2025 text/html ROS as noted in the [facility] 29 yr old female presents as a new patient with left nipple clear drainage. She also has thick dark congestion,sinus pressure, and tenderness that started a few days ago. Denies body aches or fever. Claire Jade APRN [address], [place], [address], [place] - [facility] 01/08/2025 11:44:07 01/19/2025 text/html ROS as noted in the [facility] 29 year old female who presents to the office today with concerns ofpainful white patches in mouth, throat feels numb. can peel skin from mouth Claire Jade APRN [address], [place], [address], [place] - [facility] 01/19/2025 15:32:14 04/02/2025 text/html ROS as noted in the [facility] 29 yr old female presents for a follow up on anxiety, flma for rt foot fx, been off work since jan 28 when she fell and fractured rt foot- sees ortho- dr salinas next appointment 04/09Her right ear is stopped up , green nasal drainage and tenderness.She needs documentation about using her c pap for insurance. Pt states doing well on current settings. pt is compliant with wearing cpap. Claire Jade APRN [address], [place], [address], [place] [facility] 04/06/2025 10:22:45 OBGyn Episode No OBEpisode recorded.
--- OUTSIDE RECORDS SUMMARY | 2025-04-06 12:02 | XMS_ITS | Clinical Summary ---
Author Organization Healthcare Address [address] [id number] Care Team Providers Care Jewelry Cutter Name Role Phone Neetu Templeton RONNA Primary Care Provider + [phone] Allergies No known active allergies Medications OXcarbazepine (Trileptal) 600 MG tablet Take 1 tablet by mouth 2 times a day. Active sertraline (Zoloft) 25 MG tablet Take 1 tablet by mouth daily. Active Active Problems Problem Noted Date Diagnosed Date Second hand smoke exposure 03/30/2025 Encounters Date Type Department Care Team Description 03/30/2025 1:00 PM EST Office Visit [facility] [address] [place] [address] Pretty Cai APRN Nipple discharge in female (Primary Dx); Family history of breast cancer 03/30/2025 Travel 02/26/2025 12:05 AM EDT - 02/26/2025 11:59 PM EDT Hospital Encounter [facility] [address] [facility] [address] [place] [address] Encounter for other specified special examinations Discharge Disposition: Home or Self Care 02/26/2025 Orders Only External Location [address] [place] [address] Provider, External 02/26/2025 - 02/26/2025 12:04 AM EDT Hospital Encounter [facility] [address] [facility] [address] [place] [address] Encounter for other specified special examinations Discharge Disposition: Home or Self Care 02/18/2025 [facility]phone [facility] [address] [place] [address] System, Provider Not In, 02/09/2025 Telephone [facility] [address], [address] [place] [phone] 02/06/2025 Telephone [facility] [address] [place] [address] from Last 3 Months Immunizations Immunization Administration Dates Next Due DTaP, Unspecified 09/05/2002, 0,09/01/1998,01/20/1998, 1997 HPV, Quadrivalent 12/28/2009 Hep B, Adolescent or Pediatric 01/20/1998 HiB, unspecified 11/02/1999,01/20/1998, 8 Hib / Hep B 09/01/1998 IPV 11/15/2001,11/02/1999,01/20/1998 ,1997 MMR 11/15/2001,11/02/1999 Meningococcal MCV4, Unspecified 12/28/2009 Tdap 12/28/2009 Varicella 11/15/2001 Family History Medical History Relation Name Comments Lung cancer Father Skin cancer Father Brain cancer Father's Sister Lung cancer Father's Sister Penile cancer Maternal Grandfather Alzheimer's disease Maternal Grandmother Breast cancer Mother's Sister COPD Paternal Grandfather COPD Paternal Grandmother Relation Name Status Comments Father Alive Father's Sister Maternal Grandfather Maternal Grandmother Alive Mother Alive Mother's Sister Paternal Grandfather Paternal Grandmother Sister Alive Social History Tobacco Use Types Packs/Day Years [...] on file Sexual Orientation Not on file Last Filed Vital Signs Vital Sign Reading [...] Mass Index 38.82 03/30/2025 2:08 PM EST Plan of Treatment Health Maintenance Due Date Last Done Comments [facility]-HIV Screening 1997 [facility]-Hepatitis C Screening 1997 [facility]-/Child/Adol SDOH Screenings 1997 [facility]-Hepatitis B Vaccines (3 of 3 - 3-dose series) 10/27/1998 09/01/1998, 01/20/1998 [facility]-Varicella Vaccines (2 of 2 - 2-dose childhood series) 02/07/2002 11/15/2001 [facility]-Obesity Intervention 08/04/2003 HPV Vaccines (2 - 2-dose series) 06/30/2010 12/28/2009 [facility]- SDOH Screenings 08/04/2015 [facility]-Adult SDOH Screenings 08/04/2015 [facility]-Pap Smear 2018 [facility]-DTaP,Tdap,and Td Vaccines (7 - Td or Tdap) 12/29/2019 12/28/2009, 09/05/2002, 11/02/1999, Additional history exists [id number] Vaccine (3 - 2024- season) 2025 05/05/2021, 12/09/2020 [facility]-Influenza Vaccine (#1) 2025 [facility]-Depression Screening 03/30/2026 03/30/2025, 03/14 [facility]-Zoster Vaccines (1 of 2) 08/04/2047 11/15/2001 [facility]-HIB Vaccines Completed 11/02/1999, , 01/20/1998, Additional history exists [facility]-IPV Vaccines Completed 11/15/2001, , 01/20/1998, Additional history exists [facility]-Hepatitis A Vaccines Aged Out No longer eligible based on patient's age to complete this topic [facility]-Pneumococcal Vaccine: Pediatrics (0 to 5 Years) and At-Risk Patients (6 to 49 Years) Aged Out No longer eligible based on patient's age to complete this topic [facility]-Rotavirus Vaccines Aged Out No lo nger eligible based on patient's age to complete this topic Procedures Procedure Name Priority Date/Time Associated Diagnosis Comments US BREAST OUTSIDE IMAGES 02/26/2025 2:04 PM EDT MAMMOGRAPHY OUTSIDE IMAGES UPLOAD Routine 02/26/2025 12:05 AM EDT Encounter for other specified special examinations US BREAST OUTSIDE IMAGES UPLOAD Routine 02/26/2025 12:00 AM EDT Encounter for other specified special examinations from Last 3 Months Results * US BREAST OUTSIDE IMAGES (02/26/2025 2:04 PM EDT) Anatomical Region Laterality Modality Breast Mammography 02/26/2025 2:04 PM EDT us External Provider IMG BI PROCEDURES Edited Resul t - Final * Mammography Outside Images Upload (02/26/2025 12:05 AM EDT) Narrative IMAGING - 03/23/2025 2:20 PM EST This study was performed at an outside facility and has been loaded into the PACS system for reference only. This order has been auto-finalized and does not contain a result. us Imaging Upload Radiant IMG BI PROCEDURES Final R esult Performing Organization Address [place] de Phone Number IMAGING * US Breast Imaging Outside Images Upload (02/26/2025 12:00 AM EDT) Narrative IMAGING - 03/23/2025 2:20 PM EST This study was performed at an outside facility and has been loaded into the PACS system for reference only. This order has been auto-finalized and does not contain a result. us Imaging Upload Radiant IMG BI PROCEDURES Final R esult Performing Organization Address [facility] Co de Phone Number IMAGING from Last 3 Months Insurance [facility] MEDICAID Care Teams Jewelry Cutter Relationship Specialty Start Date End Date Neetu Templeton APRN [address] [place] [id number] PCP - General 07/31/24
--- OUTSIDE RECORDS SUMMARY | 2025-04-06 12:02 | XMS_ITS | Continuity of Care Document ---
[facility] Organization [facility] Address [address] [place] [address] Assessment No assessment recorded. Plan of Treatment Reminders Order Date Submit Date Provider Last Modified By Organization Details Last Modified Time Details Appointments None recorded. Lab test, urine 2024 025 [facility], [address] [place] [address], [id number], 11:31:53 Referral None recorded. Procedures None recorded. Surgeries None recorded. Imaging MAMMO, diagnostic, digital, bilateral 2024 025 [facility] (Scheduling), [address], [place], [address], 09:54:40 US, breast, unilateral, complete - left 2024 025 [facility] (Scheduling), [address], [place], [address], 09:55:59 Medication Orders fluticasone propionate 50 mcg/actuati on nasal spray,suspe nsion 2024 025 [facility] [employer], [address] [place] [address], [id number], 15:17:50 doxycycline hyclate 100 mg capsule 2024 025 [employer], [address] [place] [address], [id number], 14:39:12 Patient TargetsNo targets recorded. Patient Instructions Encounter Date Encounter Id Patient Instructions Last Modified By Organization Details Last Modified Time 01/08/2025 [id number] learning about healthy weight janneth Not available 01/08/2025 11:31:53 body mass index: care instructions [facility] Not available 01/08/2025 11:31:53 Reason for Referral None Reported. Results Created Date Observation Date Name Description Value Unit Range Abnormal Flag Note LastModifiedBy Organization Detail LastModifiedTime 01/09/2001/08/2025 pregn nasrin test, urine HCG negati ve Not Available [address], [address], 01/08/2025 11:30:01 03/02/20 25 02/26/2025 MAMMO , diagn ostic , digit al, bilat eral No observ ation record ed. [facility] [address], [place], [address], 03/13/2025 13:27:24 03/02/20 25 02/26/2025 US, sandra t, unila teral , compl ete No observ ation record ed. [facility] [address], [place], [address], 03/13/2025 08:48:18 03/16/2003/13/2025 stres s echoc ardio gram with doppl er color flow (PROC ) No observ ation record ed. [facility] [address], [place], [address], 03/16/2025 08:18:31 Result Notes None recorded. Problems Name Problem SNOMED Code Status Onset Date Resolution Date Notes Provider Name and Address Organization Details Recorded Time Mixed anxiety and depressive disorder 904039853 Active 025 [place] - [facility] 14:36:57 [...] propionate 50 mcg/actuati on nasal spray,suspe nsion [place] 1 spray every day by intranasa l [...] Last Updated DateTime 160.02 cm 39.9 kg/m2 637188. 28 g 97 [degF] 98 /min 100 % 18 /min 0 130/78 mm[Hg] Marjan Ellison [place] - [facility] 11:14:03 Social History Question Answer Notes LastModified by Organizat ion Details LastModified Time Tobacco Smoking Status Never Smoker Marjan [place] null, [place] - [facility] 01/08/2025 11:05:13 Do You [...] Or The Highest Degree You Have Received? 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 Never used electronic cigarettes Information not available 01/08/2025 What is your exercise level? None Information not available 01/08/2025 Mental Status Question Answer Note LastModified by Organization D etails LastModified Time Do you feel stressed (tense, restless, nervous, or anxious, or unable to sleep at night)? [id number] Information not available 01/08/2025 Family History Relationship [...] unspecified formulation 10/14/18 98 completed Not Available [facility] 04/02/2025 14:51:11 IPV 10/14/18 98 completed Not Available [facility] 04/02/2025 14:51:11 Hib, unspecified formulation 10/14/18 98 completed Not Available [facility] 04/02/2025 14:51:11 DTaP, unspecified formulation 01/20/19 98 completed Not Available [facility] 04/02/2025 14:51:11 IPV 01/20/19 98 completed Not Available [facility] 04/02/2025 14:51:11 Hib, unspecified formulation 01/20/19 98 completed Not Available [facility] 04/02/2025 14:51:11 Hep B, adolescent or pediatric 01/20/19 98 completed Not Available [facility] 04/02/2025 14:51:11 DTaP, unspecified formulation 09/01/18 99 completed Not Available [facility] 04/02/2025 14:51:11 Hib-Hep B 09/01/18 99 completed Not Available [facility] 04/02/2025 14:51:11 DTaP, unspecified formulation 06/21/20 00 completed Not Available [facility] 04/02/2025 14:51:11 MMR 11/02/19 completed Not Available [facility] 04/02/2025 14:51:11 IPV 11/02/19 completed Not Available [facility] 04/02/2025 14:51:11 Hib, unspecified formulation 11/02/19 00 completed Not Available [facility] 04/02/2025 14:51:11 MMR 11/16/19 02 completed Not Available [facility] 04/02/2025 14:51:11 IPV 11/16/19 02 completed Not Available [facility] 04/02/2025 14:51:11 varicella 11/16/19 02 completed Not Available [facility] 04/02/2025 14:51:11 DTaP, unspecified formulation 09/06/19 03 completed Not Available [facility] 04/02/2025 14:51:11 HPV, quadrivalent 12/29/19 10 completed Not Available [facility] 04/02/2025 14:51:11 meningococcal MCV4, unspecified formulation 12/29/19 10 completed Not Available [facility] 04/02/2025 14:51:11 Tdap 12/29/19 10 completed Not Available [facility] 04/02/2025 14:51:11 COVID-19 vaccine, vector-nr, rS-Ad26, PF, 0.5 mL 12/10/19 21 completed Not Available [facility] 04/02/2025 14:51:11 COVID-19, mRNA, LNP-S, PF, 100 mcg/0.5mL dose or 50 mcg/0.25mL dose 05/05/20 completed Not Available [facility] 04/02/2025 14:51:11 Tdap 01/20/20 25 cancelled patient objection Claire Jade APRN [facility] [address], [address], [place] - [facility] 01/19/2025 15:32:10 Past Encounters Encounter ID Performer Location Encounter Start Date Encounter Closed Date Diagnosis/Indication Diagnosis SNOMED-CT Code Diagnosis ICD10 Code Diagnosis IMO Codes Diagnosis Note [id number] Claire Jade APRN [address] [address] 01/08/2025 10:54:34 01/08/2025 12:07:27 Obese class II [id number] 68177 E66.812 Z68.39 7896060 39.9 Acute maxi llary sinusitis 84829610 J01.00 18726330 tylenol or motrin as neededflon ase dailyantib iotics as ordered Discharge from nipple 54 776909 N64.52 21710 Health Concerns Section Related Observation LastModified by Organization Detai ls LastModified Time None Recorded Concern Status LastModified by Organization Details LastModified Time None Recorded Payers Encounter Date Sequence Insurance Name Policy Number Policy Morrison Covered Member ID Morrisno Member ID Guarantor Name 01/08/2025 1 [facility] (MEDICAID HMO) Ryland Yap [id number] Ryland Yap Notes Date Note Type Note Provider Name and Address Organization Details Recorded Time 01/08/2025 text/html ROS as noted in the HPI 29 yr old female presents as a new patient with left nipple clear drainage. She also has thick dark congestion,sinus pressure, and tenderness that started a few days ago. Denies body aches or fever. Claire Jade, EMOTIONALLY IMPAIRED TEACHER [address], [place], [address], [facility] - [facility] 01/08/2025 11:44:07 OBGyn Episode No OBEpisode recorded.
--- OUTSIDE RECORDS SUMMARY | 2025-04-06 12:02 | XMS_ITS | Continuity of Care Document ---
Author Organization [facility] Address [address] [place] [address] Assessment No assessment recorded. Plan of Treatment Reminders Order Date Submit Date Provider Last Modified By Organization Details Last Modified Time Details Appointments None recorded. Lab None recorded. Referral sleep medicine referral 2024 [facility] [place], [facility], [place], [address], 09:00:58 Procedures None recorded. Surgeries None recorded. Imaging None recorded. Medication Orders fluticason e propionate 50 mcg/actuat ion nasal spray,susp ension 2024 [employer], [address] [place] [address], [id number], 14:39:45 doxycyclin e hyclate 100 mg capsule 2024 025 [employer], [address] [place] [address], [id number], 14:39:44 sertraline 25 mg tablet 2024 [employer], [address] [place] [address], [id number], 14:39:46 Patient TargetsNo targets recorded. Patient InstructionsNo instructions recorded. Reason for Referral Sleep Medicine Referral for Sleep apnea Referring Physician: Claire Jade, Family Medicine, Encounter Date: 04/02/2025 Results Created Date Observation Date Name Description Value Unit Range Abnormal Flag Note LastModifiedBy Organization Detail LastModifiedTime 03/02/2002/26/2025 MAMMO , diagn ostic , digit al, bilat eral No observ ation record ed. [facility] [address], [place], [place], [address], 03/13/2025 13:27:24 03/02/2002/26/2025 US, breas t, unila teral , compl ete No observ ation record ed. [facility] [address], [place], [place], [address], 03/13/2025 08:48:18 03/16/2003/13/2025 stres s echoc ardio gram with doppl er color flow (PROC ) No observ ation record ed. [facility] [address], [place], [address], 03/16/2025 08:18:31 Result Notes None recorded. Problems Name Problem SNOMED Code Status Onset Date Resolution Date Notes Provider Name and Address Organization Details Recorded Time Mixed anxiety and depressive disorder 411998752 Active 025 Katherine Yany bhatt, [place] - [facility] 14:36:57 Problem Notes None recorded. [...] propionate 50 mcg/actuati on nasal spray,suspe nsion [place] 1 spray every day by intranasa l [...] Organization Details Last Updated DateTime 160.02 cm 38.6 kg/m2 22186.1 4 g 83 /min 98.1 [degF] 98 % 18 /min 0 112/60 mm[Hg] Marjan Ellison [place] - [facility] 15:13:07 Social History Question Answer Notes LastModified [...] Or The Highest Degree You Have Received? 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 Never used electronic cigarettes Information not available 01/08/2025 What is your exercise level? None Information not available 01/08/2025 Mental Status Question Answer Note LastModified by Organization D etails LastModified Time Do you feel stressed (tense, restless, nervous, or anxious, or unable to sleep at night)? [id number] Information not available 01/08/2025 Family History Relationship [...] unspecified formulation 10/14/18 98 completed Not Available [facility] 04/02/2025 14:51:11 IPV 10/14/18 98 completed Not Available [facility] 04/02/2025 14:51:11 Hib, unspecified formulation 10/14/18 98 completed Not Available [facility] 04/02/2025 14:51:11 DTaP, unspecified formulation 01/20/19 98 completed Not Available [facility] 04/02/2025 14:51:11 IPV 01/20/19 98 completed Not Available [facility] 04/02/2025 14:51:11 Hib, unspecified formulation 01/20/19 98 completed Not Available [facility] 04/02/2025 14:51:11 Hep B, adolescent or pediatric 01/20/19 98 completed Not Available [facility] 04/02/2025 14:51:11 DTaP, unspecified formulation 09/01/18 99 completed Not Available [facility] 04/02/2025 14:51:11 Hib-Hep B 09/01/18 99 completed Not Available [facility] 04/02/2025 14:51:11 DTaP, unspecified formulation 11/02/19 00 completed Not Available [facility] 04/02/2025 14:51:11 MMR 11/02/19 00 completed Not Available [facility] 04/02/2025 14:51:11 IPV 11/02/19 00 completed Not Available [facility] 04/02/2025 14:51:11 Hib, unspecified formulation 11/02/19 00 completed Not Available [facility] 04/02/2025 14:51:11 MMR 11/16/19 02 completed Not Available [facility] 04/02/2025 14:51:11 IPV 11/16/19 02 completed Not Available [facility] 04/02/2025 14:51:11 varicella 11/16/19 02 completed Not Available [facility] 04/02/2025 14:51:11 DTaP, unspecified formulation 09/06/19 03 completed Not Available [facility] 04/02/2025 14:51:11 HPV, quadrivalent 12/29/19 10 completed Not Available [facility] 04/02/2025 14:51:11 meningococcal MCV4, unspecified formulation 12/29/19 10 completed Not Available [facility] 04/02/2025 14:51:11 Tdap 12/29/19 10 completed Not Available [facility] 04/02/2025 14:51:11 COVID-19 vaccine, vector-nr, rS-Ad26, PF, 0.5 mL 12/10/19 21 completed Not Available [facility] 04/02/2025 14:51:11 COVID-19, mRNA, LNP-S, PF, 100 mcg/0.5mL dose or 50 mcg/0.25mL dose 05/05/20 21 completed Not Available [facility] 04/02/2025 14:51:11 Tdap 01/20/20 25 cancelled patient objection Claire Jade APRN [facility] [address], [address], [place] - [facility] 01/19/2025 15:32:10 Past Encounters Encounter ID Performer Location Encounter Start Date Encounter Closed Date Diagnosis/Indication Diagnosis SNOMED-CT Code Diagnosis ICD10 Code Diagnosis IMO Codes Diagnosis Note [id number] Claire Jade APRN [address] [address] 04/02/2025 14:50:14 04/02/2025 16:03:28 Mixed anxiety and depressive disorder 893128197 F41.9 F32.A 324182 Acute maxi llary sinusitis 37800366 J01.00 05346748 tylenol or motrin as neededflon ase dailyantib iotics as ordered Closed fra cture of right foot 8756395277 2420344 S92.901A 5480547 follow up with ortho Sleep apnea 62913788 G47 .30 86238681 Health Concerns Section Related Observation LastModified by Organization Detai ls LastModified Time None Recorded Concern Status LastModified by Organization Details LastModified Time None Recorded Payers Encounter Date Sequence Insurance Name Policy Number Policy Morrison Covered Member ID Morrison Member ID Guarantor Name 04/02/2025 1 [employer] [place] (MEDICAID HMO) Ryland Yap [id number] Ryland Yap Notes Date Note Type Note Provider Name and Address Organization Details Recorded Time 04/02/2025 text/html ROS as noted in the HPI 29 yr old female presents for a [...] pt is compliant with wearing cpap. Claire Jade, GOLD CUTTER [address], [place], [address], [facility] - [facility] 04/06/2025 10:22:45 OBGyn Episode No OBEpisode recorded.
== END 2025-04-06 23:59 | disposition home or self-care (01) ==
LOC: RAD 11:50
PROVIDERS: PCP Nurse Practitioner Family; Visit Provider Physician Assistant
DX: S82.64XD Nondisplaced fracture of lateral malleolus of right fibula, subsequent encounter for closed fracture with routine healing (principal); X58.XXXD Exposure to other specified factors, subsequent encounter
CPT/HCPCS: 73610